=== PATIENT | female | born 1960 | race Caucasian/White ===

== ENCOUNTER → 2018-02-15 00:13 | Outpatient (CLI) | payer MEDICAID, SELFPAY ==
--- NOTE | 2018-02-15 11:15 | DI.REPORT_ITS ---
SYMPTOM/DIAGNOSIS: SCREENING MAMMO Z12.31 BILATERAL SCREENING MAMMOGRAM: Mammograms were interpreted according to the usual protocol including computer analysis with CAD system, tomosynthesis and C view imaging. Comparison is made with exams from 2011 through 2017. The breasts are composed of fatty density tissue. No suspicious masses or suspicious microcalcifications are seen. There has been no significant change. IMPRESSION: Category 1A, negative mammogram. Routine screening is recommended. [facility] ASSESSMENT OF FINDINGS: Negative. Category 1. Patient will receive a letter notifying them of these results. BI-RAD category A. The breasts are almost entirely fatty.
== END ==
PROVIDERS: PCP Nurse Practitioner Family; Visit Provider Nurse Practitioner
DX: Z12.31 Encounter for screening mammogram for malignant neoplasm of breast (principal)
CPT/HCPCS: 77063; 77067

== ENCOUNTER → 2018-02-27 01:15 | Outpatient (CLI) | payer MEDICAID, SELFPAY ==
--- NOTE | 2018-02-27 15:39 | MERGE_ITS ---
*[facility]* * Cardiology* [address] [place] [address] Date of study: 02/27/2018 Transthoracic Echocardiography M-mode, complete 2D, complete spectral Doppler, and color Doppler *STUDY CONCLUSIONS* Summary: 1. Left ventricle: The cavity size was normal. Wall thickness was normal. Systolic function was normal. The estimated ejection fraction was 55-60%. Wall motion was normal; there were no regional wall motion abnormalities. 2. Left atrium: The atrium was mildly dilated. 3. Right ventricle: The cavity size was normal. Wall thickness was normal. Systolic function was normal. 4. Tricuspid valve: There was mild-moderate regurgitation. 5. Pulmonary arteries: Pulmonary systolic pressure was increased, in the range of 35mm Hg to 40mm Hg. *PATIENT PRESENTATION* Height: 162.6cm ((64in) ) S/D Pressure: Weight: 114.3kg ((251.5lb) ) BSA: 2.33m^2 Test start time: 02:30 PM. Test stop time: 03:20 PM. 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 Pertinent images and digital data are archived for permanent storage and are available for subsequent review. No prior study was available for comparison. Study status: Routine. Transthoracic echocardiography. M-mode, complete 2D, complete spectral Doppler, and color Doppler. A Transthoracic Echocardiogram was performed. Scanning was performed from the parasternal, apical, subcostal, and suprasternal notch acoustic windows. Images were obtained using an [id number] cardiac ultrasound machine. Image quality was adequate. Study completion: The patient tolerated the procedure well. There were no complications. *CARDIAC ANATOMY* Left ventricle: The cavity size was normal. Wall thickness was normal. Systolic function was normal. The estimated ejection fraction was 55-60%. Wall motion was normal; there were no regional wall motion abnormalities. Some parameters suggest diastolic dysfunction. Aortic valve: Trileaflet; normal thickness leaflets. Mobility was not restricted. Doppler: Transvalvular velocity was within the normal range. There was no stenosis. There was no significant regurgitation. VTI ratio of LVOT to aortic valve: 0.78. Valve area (VTI): 2.3cm^2. Indexed valve area (VTI): 1cm^2/m^2. Peak velocity ratio of LVOT to aortic valve: 0.73. Valve area (Vmax): 2.2cm^2. Indexed valve area (Vmax): 0.9cm^2/m^2. Mean velocity ratio of LVOT to aortic valve: 0.62. Valve area (Vmean): 1.8cm^2. Indexed valve area (Vmean): 0.8cm^2/m^2. Mean gradient (S): 6.6mm Hg. Peak gradient (S): 11.1mm Hg. Aorta: Aortic root: The aortic root was normal in size. Ascending aorta: The ascending aorta was normal in size. Mitral valve: Structurally normal valve. Mobility was not restricted. Doppler: Transvalvular velocity was within the normal range. There was no evidence for stenosis. There was no significant regurgitation. Valve area by pressure half-time: 3.7cm^2. Indexed valve area by pressure half-time: 1.6cm^2/m^2. Peak gradient (D): 2.7mm Hg. Left atrium: The atrium was mildly dilated. Right ventricle: The cavity size was normal. Wall thickness was normal. Systolic function was normal. Pulmonic valve: Structurally normal valve. The pulmonary valve appears to be grossly normal. Doppler: Transvalvular velocity was within the normal range. There was no evidence for stenosis. There was trivial regurgitation. Peak gradient (S): 4.6mm Hg. Tricuspid valve: Structurally normal valve. Doppler: Transvalvular velocity was within the normal range. There was no evidence for stenosis. There was mild-moderate regurgitation. Pulmonary artery: Pulmonary systolic pressure was increased, in the range of 35mm Hg to 40mm Hg. Right atrium: The atrium was normal in size. Pericardium: There was no pericardial effusion. Systemic veins: Inferior vena cava: Well visualized. The vessel was patent and normal in size. The respirophasic diameter changes were in the normal range (greater than or equal to 50%). Measurements Left ventricle Value Reference LV ID, ED, PLAX 5.2 cm 3.5 - 6.0 LV ID, ES, PLAX 3.8 cm 2.1 - 4.0 LV PW thickness, ED, PLAX 1.0 cm LV end-diastolic volume, 1-p A2C 109 ml LV ejection fraction, 1-p A2C 52 % LV end-diastolic volume, 1-p A4C 95 ml LV ejection fraction, 1-p A4C 57 % LV e', lateral 0.07 m/sec LV E/e', lateral 12 LV e', medial 0.049 m/sec LV E/e', medial 17 LV e', average 0.059 m/sec LV E/e', average 14 Ventricular septum Value Reference IVS thickness, ED, PLAX 0.8 cm LVOT Value Reference LVOT ID, A-P 2.0 cm LVOT area 3 cm^2 LVOT peak velocity, S 1.21 m/sec LVOT mean velocity, S 0.77 m/sec LVOT VTI, S 29.8 cm LVOT peak gradient, S 5.9 mm Hg LVOT mean gradient, S 2.8 mm Hg Stroke volume (SV), LVOT DP 89 ml Stroke index (SV/bsa), LVOT DP 38 ml/m^2 Aortic valve Value Reference Aortic valve peak velocity, S 1.7 m/sec Aortic valve mean velocity, S 1.25 m/sec Aortic valve VTI, S 38.3 cm Aortic mean gradient, S 6.6 mm Hg Aortic peak gradient, S 11.1 mm Hg VTI ratio, LVOT/AV 0.78 Aortic valve area, VTI 2.3 cm^2 Velocity ratio, peak, LVOT/AV 0.73 Aortic valve area, peak velocity 2.2 cm^2 Velocity ratio, mean, LVOT/AV 0.62 Aortic valve area, mean velocity 1.8 cm^2 Aortic valve area/bsa, mean velocity 0.8 cm^2/m^2 Aorta Value Reference Aortic root ID, ED 3.0 cm Ascending aorta ID, A-P, S 3.1 cm RVOT Value Reference RVOT VTI, S 19.7 cm Left atrium Value Reference LA ID, A-P, ES 4.6 cm LA ID/bsa, A-P 2.0 cm/m^2 <=2.2 LA area, ES, A4C (H) 27.2 cm^2 8.8 - 23.4 LA area, ES, A2C 20 cm^2 LA volume/bsa, ES, 1-p A4C 50 ml/m^2 LA volume, ES, 2-p 78 ml LA volume/bsa, ES, 2-p 34 ml/m^2 LA/aortic root ratio 1.55 Mitral valve Value Reference Mitral E-wave peak velocity 0.83 m/sec Mitral A-wave peak velocity 1.14 m/sec Mitral deceleration time 203 ms 150 - 230 Mitral pressure half-time 59 ms Mitral peak gradient, D 2.7 mm Hg Mitral E/A ratio, peak 0.73 Mitral valve area, PHT, DP 3.7 cm^2 Pulmonary veins Value Reference Pulmonary vein peak velocity, S 0.75 m/sec Pulmonary vein peak velocity, D 0.55 m/sec Pulmonary vein velocity ratio, peak, 1.37 S/D Pulmonary vein A-wave reversal peak 0.43 m/sec velocity Pulmonary vein A-wave reversal 153 ms duration Tricuspid valve Value Reference Tricuspid regurg peak velocity 2.9 m/sec Tricuspid peak RV-RA gradient 33.3 mm Hg Right atrium Value Reference RA area, ES, A4C 17.8 cm^2 8.3 - 19.5 Pulmonic valve Value Reference Pulmonic peak gradient, S 4.6 mm Hg Legend: (L) and (H) pablo values outside specified reference range. I have personally reviewed the images and have reviewed and edited the reported findings. Electronically signed by Darrell Reyes 02/27/2018 18:18
== END ==
PROVIDERS: PCP Nurse Practitioner Family; Visit Provider Nurse Practitioner
DX: R07.9 Chest pain, unspecified (principal); R94.30 Abnormal result of cardiovascular function study, unspecified; R00.1 Bradycardia, unspecified; I07.1 Rheumatic tricuspid insufficiency
CPT/HCPCS: 93306

== ENCOUNTER 2018-05-04 19:18 | Emergency (ER) | payer MEDICAID, SELFPAY ==
[2018-05-04 19:27] VITALS: BP 189/97; PULSE 64; RESP 18; TEMP 36.7; O2SAT 95
[2018-05-04] MEDS: Lidocaine/Epinephri/Tetracaine Topical Gel 3 ML (19:30)
[2018-05-04 19:32] VITALS: BP 189/97; PULSE 68; RESP 18; TEMP 36.7; O2SAT 95
--- NOTE | 2018-05-04 19:52 | W.ED.GENAD ---
Discharge Plan Disposition Patient Disposition: HOME Condition: Stable Discharge Details Chief Complaint: Laceration Clinical Impression: Splinter Primary Care Provider: Shalonda Nicholas ED Provider: Sandy Wood Home Meds and New Rx's Prescriptions: Continue atenolol 25 MG tablet 25 mg PO DAILY RF: 0 acetaminophen [Tylenol] 325 MG tablet 325 mg PO PRN PRNRF: 0 albuterol sulfate [ProAir HFA] 8.5 GM HFA aerosol inhaler 2 puff Inhalation ONCE RF: 0 omeprazole magnesium [Prilosec] 10 MG susp,delayed release for recon 20 mg PO DAILY RF: 0 Discharge Instructions Instructions: Soft Tissue Foreign Body (ED) Additional Instructions: Please keep wound clean and dry. Monitor for signs of infection including redness, warmth, drainage, fevers/chills, increased pain. If these arise please seek care urgently once again. Tetanus updated today. Follow up with primary care as needed. Referrals: Shalonda Nicholas [Primary Care Provider] - Medical Decision Making Patient is a 57 year old LHD female, presenting today with c/c of splinter in the left thumb. She reports that while pulling a plant a piece of the wood caught in her skin. Noted a very superficial splinter, on exam approximately 1.5cm in length. Patient is very anxious. Unknown tetanus status. She has tried ot pull this herself at home but was unsuccessful. No discharge, warmth or signs of infection. She reports that she is having severe pain. Plan to anesthetize with LET and reevaluate. Will try to find tetanus status. Patient received LET which presently anesthetized the area. Wound was then cleansed with alcohol. Using 18-gauge needle and forceps, I was able to extract the splinter in its entirety. Patient tolerated this well. Small amount of bleeding after. Wound was again cleansed with alcohol and sterile saline. Wound was covered. Wound care was discussed with the patient. Discussed signs symptoms of infection when to seek care urgently once again. We are unable to find tetanus status, patient believes is over 10 years since her last we will update this tonight. All of her questions and concerns were addressed and she is in agreement with this plan HPI General Mode of arrival: ambulatory. Date/Time Provider Initiated Documentation: 05/04/18 19:40. Limitations to Documentation: no limitations. Information obtained by: patient. History of Present Illness 57 year old F presents to the emergency department with the chief complaint of splinter left thumb, described as severe, with intensity rated at 10. Quality is described as sharp, and is localized to the left and upper extremity. Patient reports no radiation. Patient started experiencing this minute(s) and it has been constant. No relieving factors improve symptom(s), Movement worsens symptoms . Patient notes no other symptoms.; denies fever/chills. Patient did receive the following treatments prior to arrival, none Related Data Home Medications Medication Instructions Recorded Confirmed acetaminophen [Tylenol] 325 mg PO PRN PRN NS 07/29/13 05/04/18 atenolol 25 mg PO DAILY tab-cap NS 07/29/13 05/04/18 albuterol sulfate [ProAir HFA] 2 puff INHALATION ONCE inhaler 07/15/16 05/04/18 omeprazole magnesium [Prilosec] 20 mg PO DAILY packet 07/15/16 05/04/18 Allergies Allergy/AdvReac Type Severity Reaction Status Date / Time bee venom protein (honey bee) Allergy Unknown Unverified 05/04/18 19:37 codeine AdvReac Severe GI UPset Unverified 05/04/18 19:37 ibuprofen AdvReac Severe GI Upset Unverified 05/04/18 19:37 Penicillins AdvReac Severe GI upset Unverified 05/04/18 19:37 Sulfa (Sulfonamide AdvReac Severe GI upset Unverified 05/04/18 19:37 Antibiotics) General Stated Complaint: Laceration INGRID: 4 Review of Systems Constitutional Reports as per HPI, Denies chills and Denies fever(s) Musculoskeletal Reports as per HPI, Denies numbness and Denies tingling Integumentary/Breasts Reports as per HPI Neurologic Denies numbness, Denies sensory deficit and Denies tingling PFSH Family History Other Diabetes Heart disease Medical History Asthma BMI 40.0-44.9, adult Dyspepsia Hyperlipidemia Hypertension Social History Smoking/Tobacco Use Status: Never Surgical History EGD - MAC (01/10/17) Ligation of fallopian tube (07/17/92) Exam Const General: cooperative, healthy appearing, comfortable, no acute distress, well developed, well groomed and anxious Nutritional Appearance: well nourished and overweight Orientation: alert and awake Resp Effort & Inspection: normal respiratory effort, able to speak in complete sentences and no respiratory distress Cardio Rate: regular rate Rhythm: regular rhythm Skin Lesions: other (Patient has a 1.5cm thin linear piece of wood is noted in the palmar side of the distal phalanx of the left thumb, very superifical. ) Rashes: no rashes Trauma: no abrasions, no lacerations and no punctures noted Neuro General: alert and awake Cognition: normal cognition Speech: speech normal Gait: normal gait Motor: muscle tone normal throughout Sensory Exam: no sensory deficits noted Extrem General: abnormal to inspection (splinter as above), full ROM, normal capillary refill and no joint enlargement Psych Appearance: grossly normal and well kempt Mental Status: mental status grossly normal Speech and Movement: speech and movement normal Mood: congruent mood Course Vital Signs Temperature 36.7 C 05/04/18 19:32 Pulse 68 05/04/18 19:32 Respiratory Rate 18 05/04/18 19:32 Blood Pressure 189/97 H 05/04/18 19:32 Pulse Oximetry 95 05/04/18 19:32 Temperature 36.7 C 05/04/18 19:32 Temperature Source Temporal Artery Scan 05/04/18 19:32 Pulse 68 05/04/18 19:32 Respiratory Rate 18 05/04/18 19:32 Respiratory Effort 05/04/18 19:32 Blood Pressure 189/97 H 05/04/18 19:32 Pulse Oximetry 95 05/04/18 19:32 Oxygen Delivery Method Room Air 05/04/18 19:32 Oxygen Flow Rate 0 05/04/18 19:32 Pain Level 10 05/04/18 19:32
--- NOTE | 2018-05-04 19:58 | ED.GENADUL_ITS ---
Discharge Plan Disposition Patient Disposition: HOME Condition: Stable Discharge Details Chief Complaint: Laceration Clinical Impression: Splinter Primary Care Provider: Shalonda Nicholas ED Provider: Sandy Wood Home Meds and New Rx's Prescriptions: Continue atenolol 25 MG tablet 25 mg PO DAILY RF: 0 acetaminophen [Tylenol] 325 MG tablet 325 mg PO PRN PRNRF: 0 albuterol sulfate [ProAir HFA] 8.5 GM HFA aerosol inhaler 2 puff Inhalation ONCE RF: 0 omeprazole magnesium [Prilosec] 10 MG susp,delayed release for recon 20 mg PO DAILY RF: 0 Discharge Instructions Instructions: Soft Tissue Foreign Body (ED) Additional Instructions: Please keep wound clean and dry. Monitor for signs of infection including redness, warmth, drainage, fevers/chills, increased pain. If these arise please seek care urgently once again. Tetanus updated today. Follow up with primary care as needed. Referrals: Shalonda Nicholas [Primary Care Provider] - Medical Decision Making Patient is a 57 year old LHD female, presenting today with c/c of splinter in the left thumb. She reports that while pulling a plant a piece of the wood caught in her skin. Noted a very superficial splinter, on exam approximately 1.5cm in length. Patient is very anxious. Unknown tetanus status. She has tried ot pull this herself at home but was unsuccessful. No discharge, warmth or signs of infection. She reports that she is having severe pain. Plan to anesthetize with LET and reevaluate. Will try to find tetanus status. Patient received LET which presently anesthetized the area. Wound was then cleansed with alcohol. Using 18-gauge needle and forceps, I was able to extract the splinter in its entirety. Patient tolerated this well. Small amount of bleeding after. Wound was again cleansed with alcohol and sterile saline. Wound was covered. Wound care was discussed with the patient. Discussed signs symptoms of infection when to seek care urgently once again. We are unable to find tetanus status, patient believes is over 10 years since her last we will update this tonight. All of her questions and concerns were addressed and she is in agreement with this plan HPI General Mode of arrival: ambulatory . Date/Time Provider Initiated Documentation: 05/04/18 19:40 . Limitations to Documentation: no limitations . Information obtained by: patient . History of Present Illness 57 year old F presents to the emergency department with the chief complaint of splinter left thumb, described as severe, with intensity rated at 10. Quality is described as sharp, and is localized to the left and upper extremity. Patient reports no radiation. Patient started experiencing this minute(s) and it has been constant. No relieving factors improve symptom(s) , Movement worsens symptoms . Patient notes no other symptoms.; denies fever /chills. Patient did receive the following treatments prior to arrival, none Related Data Home Medications Medication Instructions Recorded Confirmed acetaminophen [Tylenol] 325 mg PO PRN PRN NS 07/29/13 05/04/18 atenolol 25 mg PO DAILY tab-cap NS 07/29/13 05/04/18 albuterol sulfate [ProAir HFA] 2 puff INHALATION ONCE inhaler 07/15/16 05/04/18 omeprazole magnesium [Prilosec] 20 mg PO DAILY packet 07/15/16 05/04/18 Allergies Allergy/AdvReac Type Severity Reaction Status Date / Time bee venom protein (honey bee) Allergy Unknown Unverified 05/04/18 19:37 codeine AdvReac Severe GI UPset Unverified 05/04/18 19:37 ibuprofen AdvReac Severe GI Upset Unverified 05/04/18 19:37 Penicillins AdvReac Severe GI upset Unverified 05/04/18 19:37 Sulfa (Sulfonamide AdvReac Severe GI upset Unverified 05/04/18 19:37 Antibiotics) General Stated Complaint: Laceration INGRID: 4 Review of Systems Constitutional Reports as per HPI, Denies chills and Denies fever(s) Musculoskeletal Reports as per HPI, Denies numbness and Denies tingling Integumentary/Breasts Reports as per HPI Neurologic Denies numbness, Denies sensory deficit and Denies tingling PFSH Family History Other Diabetes Heart disease Medical History Asthma BMI 40.0-44.9, adult Dyspepsia Hyperlipidemia Hypertension Social History Smoking/Tobacco Use Status: Never Surgical History EGD - MAC (01/10/17) Ligation of fallopian tube (07/17/92) Exam Const General: cooperative, healthy appearing, comfortable, no acute distress, well developed, well groomed and anxious Nutritional Appearance: well nourished and overweight Orientation: alert and awake Resp Effort & Inspection: normal respiratory effort, able to speak in complete sentences and no respiratory distress Cardio Rate: regular rate Rhythm: regular rhythm Skin Lesions: other (Patient has a 1.5cm thin linear piece of wood is noted in the palmar side of the distal phalanx of the left thumb, very superifical. ) Rashes: no rashes Trauma: no abrasions, no lacerations and no punctures noted Neuro General: alert and awake Cognition: normal cognition Speech: speech normal Gait: normal gait Motor: muscle tone normal throughout Sensory Exam: no sensory deficits noted Extrem General: abnormal to inspection (splinter as above), full ROM, normal capillary refill and no joint enlargement Psych Appearance: grossly normal and well kempt Mental Status: mental status grossly normal Speech and Movement: speech and movement normal Mood: congruent mood Course Vital Signs Temperature 36.7 C 05/04/18 19:32 Pulse 68 05/04/18 19:32 Respiratory Rate 18 05/04/18 19:32 Blood Pressure 189/97 H 05/04/18 19:32 Pulse Oximetry 95 05/04/18 19:32 Temperature 36.7 C 05/04/18 19:32 Temperature Source Temporal Artery Scan 05/04/18 19:32 Pulse 68 05/04/18 19:32 Respiratory Rate 18 05/04/18 19:32 Respiratory Effort 05/04/18 19:32 Blood Pressure 189/97 H 05/04/18 19:32 Pulse Oximetry 95 05/04/18 19:32 Oxygen Delivery Method Room Air 05/04/18 19:32 Oxygen Flow Rate 0 05/04/18 19:32 Pain Level 10 05/04/18 19:32
== END 2018-05-04 20:51 | disposition home or self-care (01) ==
LOC: ER 20:54
PROVIDERS: Emergency Provider Physician Assistant; PCP Nurse Practitioner Family
DX: S60.352A Superficial foreign body of left thumb, initial encounter (principal); W45.8XXA Other foreign body or object entering through skin, initial encounter; I10 Essential (primary) hypertension
CPT/HCPCS: 10120; 90471

== ENCOUNTER 2018-07-27 12:26 | Outpatient (REF) | payer MEDICAID, SELFPAY ==
--- NOTE | 2018-07-27 10:00 | PAPFT_PTH ---
PATIENT: Amanda Contreras LOC: [facility] U#:[id number] AGE/SX: 57/F ROOM: RE07/27/[address]: Deidre Ribeiro : 1960 BED: DIS: 07/27/2018 SPEC #: [id number] RECD: 07/27/18 13:11 STATUS: MICHAEL REQ #: [id number] GABY: 07/27/18 10:[address]: Deidre Ribeiro DEPT: [facility] Cytology RECD BY: Evelin Chambers ENTERED: 07/27/18 13:12 SP TYPE: PAPFT OTHR DR: Shalonda Nicholas Tissues: 1 - CX/ENDOCX FOR PAP SMEARS Procedures: PAP THIN PREP/UVM Screening HPV DNA PROBE Comments: [id number]
[2018-07-27 14:38] LABS: Glucose 101 mg/dL (70-100)
[2018-07-30 12:20] LABS: Hepatitis C Ab w Rflx HCV PCR Negative (NEGAT)
== END 2018-07-27 12:46 ==
LOC: NCHCN 12:26
PROVIDERS: PCP Nurse Practitioner Family; Visit Provider Nurse Practitioner
DX: Z12.4 Encounter for screening for malignant neoplasm of cervix (principal); Z11.51 Encounter for screening for human papillomavirus (HPV); Z01.419 Encounter for gynecological examination (general) (routine) without abnormal findings; R73.9 Hyperglycemia, unspecified; Z11.59 Encounter for screening for other viral diseases
CPT/HCPCS: 82947; 86803; 88142; 87624

== ENCOUNTER 2018-11-12 18:12 | Outpatient (REF) | payer MEDICAID, SELFPAY ==
[2018-11-12 21:13] LABS: Abs Immature Grans 0.02 k/cumm (0.0-0.09); Absolute Basophil Count 0.04 k/cumm (0.0-0.2); Absolute Eosinophil Count 0.24 k/cumm (0.0-0.7); Absolute Lymphocyte Count 2.41 k/cumm (1.2-3.4); Absolute Neutrophil Count 5.39 k/cumm (1.2-6.7); Basophils % 0.5; Eosinophils % 2.8; HCT 43.8 % (36.0-46.0); Immature Grans % 0.2; Lymphocytes % 27.7; Mean Corpuscular Hemoglobin 28.3 pg (27.0-33.0); Mean Corpuscular Volume 88.5 fL (80-95); Mean Platelet Volume 12.3 fL (8.0-11.0); Monocytes % 6.9; Neutrophils % 61.9; Platelet Count 162 x1000/uL (130-400); RBC 4.95 m/cumm (4.00-5.20); RBC Distribution Width 13.6 % (11.7-14.6)
[2018-11-12 21:24] LABS: ALT 21 U/L (12-78); AST 17 U/L (15-37); Albumin 4.1 g/dL (3.4-5.0); Alkaline Phosphatase 92 U/L (46-116); Amylase 29 U/L (25-115); Anion Gap 8.4 mmol/L (3-11); BUN 19 mg/dL (7-18); Bilirubin, Total 0.4 mg/dL (0.2-1.0); CO2 29.6 mmol/L (21.0-32.0); CREATININE 0.94 mg/dL (0.55-1.02); Chloride 100 mmol/L (98-107); Glucose 99 mg/dL (70-100); Lipase 109 U/L (73-393); Potassium 3.9 mmol/L (3.5-5.1); Sodium 138 mmol/L (136-145); Total Protein 7.7 g/dL (6.4-8.2)
[2018-11-12 21:43] LABS: Calcium 9.3 mg/dL (8.5-10.1)
== END 2018-11-12 18:32 ==
LOC: NCHCN 18:12
PROVIDERS: PCP Nurse Practitioner Family; Visit Provider Nurse Practitioner Family
DX: R10.11 Right upper quadrant pain (principal); I10 Essential (primary) hypertension; F43.20 Adjustment disorder, unspecified; F41.8 Other specified anxiety disorders
CPT/HCPCS: 80053; 83690; 82150; 85025

== ENCOUNTER 2018-11-15 00:42 | Outpatient (CLI) | payer MEDICAID, SELFPAY ==
--- NOTE | 2018-11-15 08:00 | DI.US_ITS ---
SYMPTOM/DIAGNOSIS: RUQ ABD PAIN, R10.11 ABDOMEN ULTRASOUND: The examination was somewhat technically limited due to the patient's body habitus. The visualized liver parenchyma is normal in appearance but significant portions of the liver are non visualized. There is cholelithiasis without gallbladder wall thickening or pericholecystic fluid collection. Pancreas is not ideally visualized and may show increased echogenicity. Spleen is unremarkable in appearance. Kidneys appear normal with no evidence of hydronephrosis or nephrolithiasis. Question increased echogenicity of hepatic parenchyma, there may be hepatic steatosis. CONCLUSION: Cholelithiasis, question hepatic steatosis.
== END 2018-11-15 01:02 ==
PROVIDERS: PCP Nurse Practitioner Family; Visit Provider Nurse Practitioner Family
DX: R10.11 Right upper quadrant pain (principal); K80.20 Calculus of gallbladder without cholecystitis without obstruction; K76.0 Fatty (change of) liver, not elsewhere classified
CPT/HCPCS: 76700

== ENCOUNTER 2019-03-04 16:56 | Outpatient (REF) | payer MEDICAID, SELFPAY ==
[2019-03-04 22:01] LABS: ALT 20 U/L (12-78); AST 21 U/L (15-37); Albumin 3.5 g/dL (3.4-5.0); Alkaline Phosphatase 83 U/L (46-116); Anion Gap 8.7 mmol/L (3-11); BUN 16 mg/dL (7-18); Bilirubin, Total 0.3 mg/dL (0.2-1.0); CO2 29.3 mmol/L (21.0-32.0); CREATININE 0.74 mg/dL (0.55-1.02); Calcium 8.4 mg/dL (8.5-10.1); Calculated LDL 174 mg/dL; Chloride 102 mmol/L (98-107); Cholesterol 269 mg/dL (50-200); Glucose 114 mg/dL (70-100); HDL Cholesterol 49 mg/dL (40-60); Magnesium 1.8 mg/dL (1.8-2.4); Sodium 140 mmol/L (136-145); TSH (W/Ref FT4) 1.46 uIU/mL (0.36-3.74); Triglyceride 233 mg/dL (30-150); Vitamin B12 177 pg/mL (193-986)
== END 2019-03-04 17:16 ==
LOC: NCHCN 16:56
PROVIDERS: PCP Nurse Practitioner Family; Visit Provider Nurse Practitioner Family
DX: R07.9 Chest pain, unspecified (principal); I27.20 Pulmonary hypertension, unspecified; K30 Functional dyspepsia; I10 Essential (primary) hypertension; E78.5 Hyperlipidemia, unspecified; K76.0 Fatty (change of) liver, not elsewhere classified; K80.20 Calculus of gallbladder without cholecystitis without obstruction; F43.20 Adjustment disorder, unspecified
CPT/HCPCS: 80053; 80061; 83721; 82607; 83735; 84443

== ENCOUNTER 2019-04-03 14:33 | Outpatient (CLI) | payer MEDICAID, SELFPAY ==
--- NOTE | 2019-04-03 07:29 | MERGE_ITS ---
*[facility]* *[facility]* [address] [place] [address] Date of study: 04/03/2019 Transthoracic Echocardiography M-mode, complete 2D, complete spectral Doppler, and color Doppler *STUDY CONCLUSIONS* Impressions: Frequent ectopy was noted on this study, making this study technically difficult for the assessment of cardiac function. Summary: 1. Left ventricle: The cavity size was normal. Wall thickness was normal. Systolic function was at the lower limits of normal. The estimated ejection fraction was 50-55%. Wall motion was normal; there were no regional wall motion abnormalities. 2. Left atrium: The atrium was mildly dilated. 3. Right ventricle: The cavity size was normal. Wall thickness was normal. Systolic function was normal. 4. Pulmonary arteries: Pulmonary systolic pressure was within the normal range, in the range of 25mm Hg to 30mm Hg. *PATIENT PRESENTATION* Height: 160cm (63in ) S/D Pressure: 127 / 74 Weight: 113.4kg (249.5lb ) BSA: 2.31m^2 Test start time: 07:40 AM. Test stop time: 08:40 AM. PERFORMING Unknown CONSULTING Shalonda Nicholas Aprn ORDERING Shalonda Nicholas Aprn REFERRING Shalonda Nicholas Aprn PERFORMING [facility] FACULTY RESEARCH ASSISTANT RT Kena Snow)(OVIDIO)TRISTEN *PROCEDURE DATA* Procedure information: The patient was identified by two identifiers. This study was interpreted by [facility]. Pertinent images and digital data are archived for permanent storage and are available for subsequent review. Comparison was made to the study of 02/21/2018. Study status: Routine. Transthoracic echocardiography. M-mode, complete 2D, complete spectral Doppler, and color Doppler. A Transthoracic Echocardiogram was performed. Scanning was performed from the parasternal, apical, subcostal, and suprasternal notch acoustic windows. Images were obtained using an [id number] cardiac ultrasound machine. Image quality was adequate. Study completion: The patient tolerated the procedure well. There were no complications. History: PMH: Pulmonary HTN i27.20, tricuspid regurgitation i07.1 *CARDIAC ANATOMY* Left ventricle: The cavity size was normal. Wall thickness was normal. Systolic function was at the lower limits of normal. The estimated ejection fraction was 50-55%. Wall motion was normal; there were no regional wall motion abnormalities. Findings consistent with diastolic dysfunction. Aortic valve: Trileaflet; normal thickness leaflets. Mobility was not restricted. Doppler: Transvalvular velocity was within the normal range. There was no stenosis. There was trivial regurgitation. VTI ratio of LVOT to aortic valve: 0.72. Valve area (VTI): 2.2cm^2. Indexed valve area (VTI): 0.9cm^2/m^2. Peak velocity ratio of LVOT to aortic valve: 0.68. Valve area (Vmax): 2.1cm^2. Indexed valve area (Vmax): 0.9cm^2/m^2. Mean velocity ratio of LVOT to aortic valve: 0.68. Valve area (Vmean): 2.1cm^2. Indexed valve area (Vmean): 0.9cm^2/m^2. Mean gradient (S): 4.6mm Hg. Peak gradient (S): 8mm Hg. Aorta: Aortic root: The aortic root was normal in size. Ascending aorta: The ascending aorta was normal in size. Mitral valve: Structurally normal valve. Mobility was not restricted. Doppler: Transvalvular velocity was within the normal range. There was no evidence for stenosis. There was trivial regurgitation. Valve area by pressure half-time: 3.6cm^2. Indexed valve area by pressure half-time: 1.5cm^2/m^2. Left atrium: The atrium was mildly dilated. Right ventricle: The cavity size was normal. Wall thickness was normal. Systolic function was normal. Pulmonic valve: Structurally normal valve. Doppler: Transvalvular velocity was within the normal range. There was no evidence for stenosis. There was no significant regurgitation. Tricuspid valve: Structurally normal valve. Doppler: Transvalvular velocity was within the normal range. There was no evidence for stenosis. There was trivial regurgitation. Pulmonary artery: Pulmonary systolic pressure was within the normal range, in the range of 25mm Hg to 30mm Hg. Right atrium: The atrium was normal in size. Pericardium: There was no pericardial effusion. Systemic veins: Inferior vena cava: Well visualized. The vessel was patent and normal in size. The respirophasic diameter changes were in the normal range (greater than or equal to 50%). Measurements Left ventricle Value 02/27/2018 Reference LV ID, ED, PLAX 4.7 cm 5.2 3.5 - 6.0 LV ID, ES, PLAX 3.7 cm 3.8 2.1 - 4.0 LV PW thickness, ED, PLAX 1.1 cm 1.0 LV end-diastolic volume, 83 ml 109 1-p A2C LV ejection fraction, 1-p 41 % 52 A2C LV end-diastolic volume, 119 ml 95 1-p A4C LV ejection fraction, 1-p 40 % 57 A4C LV e', lateral 0.03 m/sec 0.07 LV E/e', lateral 15 12 LV e', medial 0.042 m/sec 0.049 LV E/e', medial 11 17 LV e', average 0.036 m/sec 0.059 LV E/e', average 12 14 Ventricular septum Value 02/27/2018 Reference IVS thickness, ED, PLAX 1.0 cm 0.8 LVOT Value 02/27/2018 Reference LVOT ID, A-P 2.0 cm 2.0 LVOT area 3 cm^2 3 LVOT peak velocity, S 0.96 m/sec 1.21 LVOT mean velocity, S 0.69 m/sec 0.77 LVOT VTI, S 20.0 cm 29.8 LVOT peak gradient, S 3.7 mm Hg 5.9 LVOT mean gradient, S 2.2 mm Hg 2.8 Stroke volume (SV), LVOT 61 ml 89 DP Stroke index (SV/bsa), 26 ml/m^2 38 LVOT DP Aortic valve Value 02/27/2018 Reference Aortic valve peak 1.4 m/sec 1.7 velocity, S Aortic valve mean 1 m/sec 1.2 velocity, S Aortic valve VTI, S 28.0 cm 38.3 Aortic mean gradient, S 4.6 mm Hg 6.6 Aortic peak gradient, S 8 mm Hg 11.1 VTI ratio, LVOT/AV 0.72 0.78 Aortic valve area, VTI 2.2 cm^2 2.3 Velocity ratio, peak, 0.68 0.73 LVOT/AV Aortic valve area, peak 2.1 cm^2 2.2 velocity Velocity ratio, mean, 0.68 0.62 LVOT/AV Aortic valve area, mean 2.1 cm^2 1.8 velocity Aortic valve area/bsa, 0.9 cm^2/m^2 0.8 mean velocity Aorta Value 02/27/2018 Reference Aortic root ID, ED 3.0 cm 3.0 Ascending aorta ID, A-P, S 3.1 cm 3.1 Left atrium Value 02/27/2018 Reference LA ID, A-P, ES 4.3 cm 4.6 LA ID/bsa, A-P 1.9 cm/m^2 2.0 <=2.2 LA volume/bsa, ES, 1-p A4C 35 ml/m^2 50 LA volume, ES, 2-p 64 ml 78 LA volume/bsa, ES, 2-p 28 ml/m^2 34 LA/aortic root ratio 1.46 1.55 Mitral valve Value 02/27/2018 Reference Mitral E-wave peak 0.44 m/sec 0.83 velocity Mitral A-wave peak 1.01 m/sec 1.14 velocity Mitral deceleration time 214 ms 203 150 - 230 Mitral pressure half-time 62 ms 59 Mitral E/A ratio, peak 0.43 0.73 Mitral valve area, PHT, DP 3.6 cm^2 3.7 Pulmonary veins Value 02/27/2018 Reference Pulmonary vein peak 0.64 m/sec 0.75 velocity, S Pulmonary vein peak 0.3 m/sec 0.55 velocity, D Pulmonary vein velocity 2.14 1.37 ratio, peak, S/D Pulmonary vein A-wave 0.45 m/sec 0.43 reversal peak velocity Pulmonary vein A-wave 141 ms 153 reversal duration Tricuspid valve Value 02/27/2018 Reference Tricuspid regurg peak 2.4 m/sec 2.9 velocity Tricuspid peak RV-RA 23.9 mm Hg 33.3 gradient Right atrium Value 02/27/2018 Reference RA area, ES, A4C 17.1 cm^2 17.8 8.3 - 19.5 Legend: (L) and (H) pablo values outside specified reference range. I have personally reviewed the images and have reviewed and edited the reported findings. Electronically signed by Darrell Reyes 04/03/2019 09:57
== END 2019-04-03 14:53 ==
PROVIDERS: PCP Nurse Practitioner Family; Visit Provider Nurse Practitioner Family
DX: I27.20 Pulmonary hypertension, unspecified (principal); I07.1 Rheumatic tricuspid insufficiency; I10 Essential (primary) hypertension
CPT/HCPCS: 93306

== ENCOUNTER 2019-04-10 13:43 | Outpatient (CLI) | payer MEDICAID, SELFPAY | END 2019-04-10 14:03 | PROVIDERS: PCP Nurse Practitioner Family; Visit Provider Nurse Practitioner Family | DX: R07.89 Other chest pain (principal); I49.3 Ventricular premature depolarization | CPT/HCPCS: 93225 ==

== ENCOUNTER 2019-04-15 09:01 | Outpatient (CLI) | payer MEDICAID, SELFPAY ==
--- NOTE | 2019-04-15 11:23 | HOLTER_ITS ---
DATE OF DICTATION: April 15, 2019 48-HOUR STUDY Baseline rhythm sinus. Rare single PAC. No SVT or atrial fibrillation. Very frequent single PVC, 29,722 total. 13.6% of total beat. 887 couplet, 32 triplet. No VT. Heart rates as low as 55 bpm, sinus bradycardia. No symptoms.
== END 2019-04-15 09:21 ==
PROVIDERS: PCP Nurse Practitioner Family; Visit Provider Nurse Practitioner Family
DX: I49.3 Ventricular premature depolarization (principal); R07.89 Other chest pain
CPT/HCPCS: 93226

== ENCOUNTER 2019-05-02 12:21 | Outpatient (REF) | payer MEDICAID, SELFPAY ==
[2019-05-02 23:00] LABS: Hemoglobin A1C 6.6 % (4.5-6.2)
== END 2019-05-02 12:41 ==
LOC: NCHCN 12:21
PROVIDERS: PCP Nurse Practitioner Family; Visit Provider Nurse Practitioner Family
DX: I10 Essential (primary) hypertension (principal); E53.8 Deficiency of other specified B group vitamins; R07.9 Chest pain, unspecified; K76.0 Fatty (change of) liver, not elsewhere classified; F41.8 Other specified anxiety disorders; I27.20 Pulmonary hypertension, unspecified; K30 Functional dyspepsia; E66.9 Obesity, unspecified
CPT/HCPCS: 82607; 83036

== ENCOUNTER 2019-05-06 01:08 | Outpatient (CLI) | payer MEDICAID, SELFPAY ==
--- NOTE | 2019-05-06 07:43 | DI.CT_ITS ---
EXAM: CT ABDOMEN PELVIS W CLINICAL HISTORY: chronic pain, RLQ abd pain, enlarged liver, R10.31, R16.0. TECHNIQUE: The examination was carried out with an intravenous administration of 125 cc of Omnipaque 350. COMPARISON: No exams were available for comparison FINDINGS: The lung bases are suboptimally demonstrated due to patient motion, no definite abnormality is identi fied. The liver is slightly enlarged. The gallbladder is normal. There is no evidence of cholelithia sis. There is no evidence of biliary dilatation. The pancreas and spleen are intact. The kidneys ar e unremarkable save for a small cyst involving the lower pole of the left kidney. There is no eviden ce of bowel obstruction. The appendix is normal. No localized bowel wall abnormality is apparent. T he bladder is intact. The reproductive organs as visualized appear intact. There is no evidence of f ree fluid or free air in the intraperitoneal space. There is no evidence of an aortic aneurysm. Note is made of a small fat containing umbilical hernia. Degenerative changes involving the lower dorsal spine are identified and there is a narrowed vacuum disc at L5-S1. No acute bony abnormality is def ined. IMPRESSION: Hepatomegaly is demonstrated. A small left renal cyst is seen and there is a small fat containing umb ilical hernia. Degenerative changes involving the spine are identified as described above.
[2019-05-06] MEDS: Breeza Beverage 473 ML BTL PO ×2 (07:54→07:55)
[2019-05-06] MEDS: Omnipaque 350 MG/ML 50 ML BTL PO (07:55)
[2019-05-06] MEDS: Omnipaque 350 MG/ML 100 ML BTL IV (09:34)
[2019-05-06] MEDS: Omnipaque 350 MG/ML 50 ML BTL IV (09:35)
[2019-05-06] MEDS: Normal Saline Flush 10 ML SYR IVP (09:36)
== END 2019-05-06 01:28 ==
PROVIDERS: PCP Nurse Practitioner Family; Visit Provider Surgery
DX: R10.31 Right lower quadrant pain (principal); R16.0 Hepatomegaly, not elsewhere classified; N28.1 Cyst of kidney, acquired; K42.9 Umbilical hernia without obstruction or gangrene
CPT/HCPCS: 74177; J3490; Q9967

== ENCOUNTER 2019-05-09 10:03 | Day surgery (SDC) | payer MEDICAID, SELFPAY ==
[2019-05-09 10:33] VITALS: BP 155/73; PULSE 63; RESP 15; TEMP 36.4; O2SAT 97
[2019-05-09] MEDS: Lactated Ringers 1,000 ML 120 ML IV (11:18)
[2019-05-09] MEDS: Sodium Citrate 30 ML CUP (11:25)
--- NOTE | 2019-05-09 11:54 | W.PM.DSUDISC ---
Discharge Plan Disposition Patient Disposition: HOME Condition: Good Discharge Details Reason For Visit: colon scope Attending Provider: Marimar Boudreaux Primary Care Provider: Shalonda Nicholas Home Meds and New Rx's Prescriptions: New dicyclomine 10 mg capsule 10 mg PO TID PRN (Reason: colon spasm ) Qty: 30 RF: 3 Continued Pulmicort Flexhaler 90 mcg/actuation aerosol powdr breath activated 1 inh IH BID RF: 0 sucralfate [Carafate] 1 gram tablet 1 gm PO QACHS RF: 0 pantoprazole 20 mg tablet,delayed release (DR/EC) 20 mg PO DAILY RF: 0 vitamin B complex [B Complex-Vitamin B12] Tablet 1 tab PO DAILY RF: 0 atenolol 25 MG tablet 25 mg PO DAILY RF: 0 acetaminophen [Tylenol] 325 MG tablet 325 mg PO PRN PRNRF: 0 albuterol sulfate [ProAir HFA] 8.5 GM HFA aerosol inhaler 2 puff Inhalation PRN PRNRF: 0 hydrochlorothiazide 25 mg Tablet 25 mg PO DAILY RF: 0 Discontinued polyethylene glycol 3350 17 gram powder in packet 255 g PO DAILY Qty: 15 RF: 0 bisacodyl [Dulcolax (bisacodyl)] 5 mg tablet,delayed release (DR/EC) 5 mg PO ONCE Qty: 4 RF: 0 Discharge Instructions Additional Instructions: Findings: normal colon repeat in 10 yrs time Follow up: C. scope and CT scan were normal will try some dycyclomine for colon spsams. F/u w/ PCP in 6-8 wks to see if this helps Please call if you develop: fevers >101.5 Nausea or Vomiting Abdominal pain that is not transient DAY SURGERY UNIT POST COLONOSCOPY INSTRUCTIONS 1. Because there will be medication in your system for the next 24 hours, you may feel a little sleepy. Your coordination will be affected. Therefore: a. Do not drive or operate dangerous equipment for 24 hours. b. Do not drink alcohol beverages for 24 hours (not even beer). c. Plan to go home and rest for the day. 2. Generally there are no restrictions on your activity after a day or so has gone by, but you may feel a bit fatigued for a few days. 3 After you arrive home you may have a light meal and return to a normal diet as you can tolerate it without feeling sick to your stomach. 4. After surgery, you may feel pain or discomfort. This should be only transient, but if it persists please contact your doctor. 5. If there are any questions regarding the findings of your procedure, please feel free to contact your doctor. 6. If you are unable to contact your doctor with a problem, contact the hospital at [phone]. 7. Continue all your regular medications unless directed otherwise. I understand the above instructions and have no questions. Signature of Patient or Responsible Adult Escort Date/Time Name of Responsible Adult Escort Signature of Nurse Date/Time Activity:: see above Diet:: see above Discharge Orders Discharge Orders: Discharge Order (Routine); Ordered 05/09/19 Ordered By: Marimar Boudreaux DS: Diagnosis Discharge Diagnosis (1) RLQ abdominal pain: Status: Acute (2) IBS (irritable bowel syndrome): Status: Chronic
[2019-05-09 12:00] VITALS: BP 140/60; PULSE 65; RESP 16; TEMP 36.4; O2SAT 97
--- NOTE | 2019-05-14 19:13 | W.COLOREPORT ---
Date of service: 05/09/19 Time of Service: 19:14 Colonoscopy Report Date of procedure: 05/09/19 Pre-op diagnosis general: RLQ abdom pain Post-op diagnosis procedure note: same Procedure: CE Surgeon: Marimar Boudreaux Anesthesia proc note operative: GETA Estimated blood loss (mL): 0 Pathology: other Complications: None Disposition: same day Retraction Time: 12 mins Procedure Description: After informed consent was obtained the patient was taken to the procedure room and placed in a left decubitous position. Monitors were applied and a time out was done. The patients name, date of , procedure, allergies to medications and metal in their body was reviewed. The patient was then sedated. Once sedated and comfortable a rectal exam was done. External exam was normal. Internal exam revealed a normal sphincter tone and no palpable masses. The scope was then introduced and retrofelexed. No internal hemorrhoids were identified. The scope was then advanced to the cecum without difficulty. The TI and appendiceal orifice were identified. The prep was good. The scope was then slowly retracted over 15 minutes back into the rectum. no polyps/AVM's or diverticula apparent. Tissue was nl - pink and healthy. The scope was removed and the patient was woken up and taken back to Same day surgery in stable condition. The patient tolerated the procedure well and there were no immediate complications. Her CE and CT were nl. At this time- it would appear that her bowl is a functional bowel problem. We will try her on some Bentyl and see if this helps. I will have her F/u w/ PCP in 4-6wks to see how she is feeling. Follow up: The patient should follow up in 10 years unless they develop changes in bowel habits or other new gastrointestinal complaints.
== END 2019-05-09 12:54 | disposition home or self-care (01) ==
PROVIDERS: PCP Nurse Practitioner Family; Visit Provider Surgery
PROC: 0DJD8ZZ Inspection of Lower Intestinal Tract, Via Natural or Artificial Opening Endoscopic (ICD-10-PCS; CPT 45378; principal; 2019-05-09 11:00)
DX: R10.31 Right lower quadrant pain (principal); I10 Essential (primary) hypertension
CPT/HCPCS: 45378

== ENCOUNTER 2019-05-28 11:59 | Outpatient (REF) | payer MEDICAID, SELFPAY ==
[2019-05-28 23:38] LABS: Vitamin B12 542 pg/mL (193-986)
== END 2019-05-28 12:19 ==
LOC: NCHCO 11:59
PROVIDERS: PCP Nurse Practitioner Family; Visit Provider Nurse Practitioner Family
DX: E11.9 Type 2 diabetes mellitus without complications (principal); E53.8 Deficiency of other specified B group vitamins; I10 Essential (primary) hypertension
CPT/HCPCS: 82607

== ENCOUNTER 2019-09-30 00:32 | Outpatient (CLI) | payer MEDICAID, SELFPAY ==
--- NOTE | 2019-09-30 | DI.MAMMO_ITS ---
EXAM: MG MAMMO SCREENING CLINICAL HISTORY: SCREENING Z12.31 TECHNIQUE: Bilateral full field digital CC and MLO mammographic images were obtained with 3D tomosyn thesis and utilizing computer aided detection (CAD). COMPARISON: Available for comparison. FINDINGS: Masses/Architectural Distortion: None seen. Microcalcifications: No suspicious pleomorphic-type are seen. Skin Thickening/Nipple Retraction: None. IMPRESSION: 1. No significant interval change with no specific features of malignancy noted. 2. Unless there is more urgent need, screening mammography is recommended, as per [place] [employer] guidelines. BI-RADS Cat 1 - Negative Breast Density - Category A - Almost entirely fatty A negative radiographic report should not delay biopsy if a dominant or clinically suspicious mass is present. Up to ten percent of cancers are not identified on mammography. A negative report may reinforce clinical impression. Adenosis and dense breasts may obscure an underlying neoplasm. False positive reports average 6 to 10%. Patient will receive a letter notifying them of these results.
== END 2019-09-30 00:52 ==
PROVIDERS: PCP Nurse Practitioner Family; Visit Provider Nurse Practitioner Family
DX: Z12.31 Encounter for screening mammogram for malignant neoplasm of breast (principal)
CPT/HCPCS: 77063; 77067

== ENCOUNTER 2020-01-20 14:28 | Outpatient (REF) | payer MEDICAID, SELFPAY ==
[2020-01-20 21:16] LABS: Abs Immature Grans 0.02 k/cumm (0.0-0.09); Absolute Basophil Count 0.03 k/cumm (0.0-0.2); Absolute Eosinophil Count 0.28 k/cumm (0.0-0.7); Absolute Lymphocyte Count 2.12 k/cumm (1.2-3.4); Absolute Monocyte Count 0.52 k/cumm (0.11-0.7); Absolute Neutrophil Count 4.66 k/cumm (1.2-6.7); Basophils % 0.4; Eosinophils % 3.7; HCT 42.9 % (36.0-46.0); Immature Grans % 0.3 %; Lymphocytes % 27.8; Mean Corp. HGB Concentration 32.6 g/dL (32.0-36.0); Mean Corpuscular Hemoglobin 28.8 pg (27.0-33.0); Mean Corpuscular Volume 88.3 fL (80-95); Mean Platelet Volume 13.4 fL (8.0-11.0); Monocytes % 6.8; Platelet Count 192 x1000/uL (130-400); RBC 4.86 m/cumm (4.00-5.20); RBC Distribution Width 13.8 % (11.7-14.6); White Blood Cell Count 7.63 k/cumm (4.4-10.8)
[2020-01-20 21:45] LABS: ALT 35 U/L (14-59); AST 23 U/L (15-37); Albumin 3.9 g/dL (3.4-5.0); Alkaline Phosphatase 79 U/L (46-116); Anion Gap 6.5 mmol/L (3-11); BUN 20 mg/dL (7-18); Bilirubin, Total 0.5 mg/dL (0.2-1.0); CO2 32.5 mmol/L (21.0-32.0); CREATININE 0.97 mg/dL (0.55-1.02); Calcium 9.6 mg/dL (8.5-10.1); Calculated LDL 176 mg/dL (<100); Chloride 100 mmol/L (98-107); Cholesterol 264 mg/dL (<200); Estimated GFR 58.38 (mL/min/1.73m2); Glucose 129 mg/dL (74-106); HDL Cholesterol 54 mg/dL (40-60); Magnesium 1.8 mg/dL (1.8-2.4); Potassium 3.6 mmol/L (3.5-5.1); Sodium 139 mmol/L (136-145); Total Protein 7.2 g/dL (6.4-8.2); Triglyceride 171 mg/dL (<150); Vitamin B12 540 pg/mL (193-986)
== END 2020-01-20 14:48 ==
LOC: NCHCN 14:28
PROVIDERS: PCP Nurse Practitioner Family; Visit Provider Nurse Practitioner Family
DX: E11.9 Type 2 diabetes mellitus without complications (principal); E53.8 Deficiency of other specified B group vitamins; R07.9 Chest pain, unspecified; I10 Essential (primary) hypertension; K76.0 Fatty (change of) liver, not elsewhere classified; F41.8 Other specified anxiety disorders; I27.20 Pulmonary hypertension, unspecified
CPT/HCPCS: 80053; 80061; 82607; 83735; 85025

== ENCOUNTER 2020-01-24 02:40 | Outpatient (CLI) | payer MEDICAID, SELFPAY ==
--- NOTE | 2020-01-24 | DI.US_ITS ---
EXAM: US ABDOMEN CLINICAL HISTORY: LIVER STEATOSIS, K76.0, DM TYPE 2, E11.9 TECHNIQUE: Ultrasound abdomen performed using standard protocol. COMPARISON: CT CT ABDOMEN PELVIS W from 05/06/[address] ABDOMEN PELVIS W from 05/06/2019 FINDINGS: Exam is limited by the patient's body habitus LIVER: Liver is enlarged and shows increased echogenicity consistent with fatty infiltration.. No f ocal liver lesions are seen.. GALLBLADDER: 2 centimeter mobile stone. No evidence of wall thickening. No pericholecystic fluid mary ntified. CALI'S SIGN: Negative. BILIARY SYSTEM: No intrahepatic or extrahepatic biliary ductal dilation. KIDNEYS: Kidneys are symmetric in size. No evidence of renal calculi. No evidence of hydronephrosis. No renal mass or cyst identified. PANCREAS: Normal where visualized. SPLEEN: Not enlarged. ABDOMINAL AORTA AND IVC: Visualized portions normal caliber. ASCITES: None seen. IMPRESSION: Cholelithiasis. Hepatic steatosis.. DATA REPOSITORY:
== END 2020-01-24 03:00 ==
PROVIDERS: PCP Nurse Practitioner Family; Visit Provider Nurse Practitioner Family
DX: K76.0 Fatty (change of) liver, not elsewhere classified (principal); E11.9 Type 2 diabetes mellitus without complications; R16.0 Hepatomegaly, not elsewhere classified; K80.20 Calculus of gallbladder without cholecystitis without obstruction
CPT/HCPCS: 76700

== ENCOUNTER 2020-03-09 22:26 | Outpatient (REF) | payer MEDICAID, SELFPAY ==
[2020-03-09 21:44] LABS: ALT 26 U/L (14-59); AST 14 U/L (15-37); Albumin 3.7 g/dL (3.4-5.0); Alkaline Phosphatase 96 U/L (46-116); Anion Gap 6.3 mmol/L (3-11); BUN 21 mg/dL (7-18); Bilirubin, Total 0.4 mg/dL (0.2-1.0); CO2 32.7 mmol/L (21.0-32.0); CREATININE 0.84 mg/dL (0.55-1.02); Calcium 9.3 mg/dL (8.5-10.1); Calculated LDL 114 mg/dL (<100); Chloride 101 mmol/L (98-107); Cholesterol 199 mg/dL (<200); Glucose 160 mg/dL (74-106); HDL Cholesterol 50 mg/dL (40-60); Potassium 3.5 mmol/L (3.5-5.1); Sodium 140 mmol/L (136-145); Total Protein 6.9 g/dL (6.4-8.2); Triglyceride 175 mg/dL (<150)
== END 2020-03-09 22:46 ==
LOC: NCHCN 22:26
PROVIDERS: PCP Nurse Practitioner Family; Visit Provider Nurse Practitioner Family
DX: K76.0 Fatty (change of) liver, not elsewhere classified (principal)
CPT/HCPCS: 80053; 80061

== ENCOUNTER 2020-10-23 03:44 | Outpatient (CLI) | payer MEDICAID, SELFPAY ==
--- NOTE | 2020-10-23 09:27 | DI.US_ITS ---
APPROVED REPORT EXAM: Comprehensive 2D, Doppler, and color-flow Echocardiogram Patient Location: Out-Patient Food Sanitarian: Nelida Castillo RDCS (AE) Indications: Pulmonary HTN, Pre operative exam Other Information Study Quality: Adequate Conclusion Left Ventricle : The left ventricle is normal size. The left ventricular systolic function is normal. The left ventricular ejection fraction is within the normal range. There is normal left ventricular wall thickness. There is normal LV segmental wall motion. The left ventricular diastolic function is abnormal. LVEF is 60-65%. Right Ventricle : The right ventricle is normal size. The right ventricular systolic function is norm al. The RVSP is 31.9mmHg. Atria : The left atrium size is normal. The right atrium size is normal. Valves: There are no hemodynamically significant valvular lesions. Great Vessels : The aortic root is normal in size. The ascending aorta is normal in size. Aortic arch is normal in caliber. IVC is normal in size and collapses >50% with inspiration. Please see remainder of study for further details. Wall motion Left Ventricle The left ventricle is normal size. The left ventricular systolic function is normal. The left ventric ular ejection fraction is within the normal range. There is normal left ventricular wall thickness. T here is normal LV segmental wall motion. The left ventricular diastolic function is abnormal. There i s no ventricular septal defect visualized. LVEF is 60-65%. Right Ventricle The right ventricle is normal size. The right ventricular systolic function is normal. The RVSP is 31 .9mmHg. Atria The left atrium size is normal. The right atrium size is normal. The interatrial septum is intact wit h no evidence for an atrial septal defect. Aortic Valve The aortic valve is normal in structure. Aortic valve is trileaflet. There is no aortic valvular sten osis. No aortic regurgitation is present. Mitral Valve The mitral valve is normal in structure. No evidence of mitral valve stenosis. Trace mitral regurgita tion. Tricuspid Valve The tricuspid valve is normal in structure. There is no tricuspid valve stenosis. Trace tricuspid reg urgitation. Pulmonic Valve The pulmonary valve is normal in structure. There is no pulmonic valvular stenosis. Trace pulmonic re gurgitation. Great Vessels The aortic root is normal in size. The ascending aorta is normal in size. Aortic arch is normal in ca liber. IVC is normal in size and collapses >50% with inspiration. Pericardium There is no pericardial effusion. 2D Dimensions IVSD d PLAX 0.97 cm F: 0.6-1.0 LV Vol A2C d MOD 132.4 mL LVPW d PLAX 0.95 cm F: 0.6 - 1.0 LV Vol A4C d MOD 115.3 mL LVID d PLAX 4.53 cm F: 3.8 - 5.2 LA vol/ BSA A2C s A-L 27.2 mL/m2 LVDs 2.95 cm F: 2.2 - 3.5 LA vol/ BSA A4C s A-L 20.7 mL/m2 Ao Root d 2.59 cm F: 2.7 - 3.3 LA Vol/ BSA Biplane s A-L 24.2 mL/m2 RA Area A4C 13.10 cm2 LA Area A4C s MOD 16.61 cm2 RA Vol/ BSA A4C s A-L 13.8 mL/m2 LA Area A2C s MOD 18.65 cm2 Ao Asc Diam d 3.03 cm F: 2.3 - 3.1 LV EF A4C MOD 64.3 % LV EF Teichholz 63.5 % LV EF A2C MOD 61.7 % LVEF (Her's) 62.71 % F: 54 - 74 LV EF Biplane MOD 62.7 % LV Volume 93.05 mL F: 46 - 106 SV 79.04 mL LV Volume Index 44.30 mL/m2 F: 29 - 61 SV Index 37.67 mL/m2 LV Vol Biplane MOD 126.0 mL FS 34.30 % M-Mode TAPSE 1.77 cm (M/F) >1.7 LV Diastology MV E' medial 0.040 (>0.07 m/s) E/A Ratio 0.6 LV E/e MED 15.05 (<14) MV E Vmax 0.61 (0.4-1.3 m/s) MV E' lateral 0.066 (>0.1 m/s) MV A Vmax 1.00 (0.4-1.3 m/s) LV E/e LAT 9.05 (<14) MV E/A Ratio 0.59 MV E/E' medial 15.09 MV E/E' lateral 9.10 Aortic Valve LVOT Area 2.88 cm2 AoV Area Vmax 2.05 cm2 LVOT Vmax 1.15 m/s AoV Area/ BSA (Vmax) 0.98 cm2/m2 LVOT Mean Franck. 0.68 m/s STEPHAN Mean Rfanck. 1.76 cm2 LVOT Peak Grad 5.3 mmHg STEPHAN Mean Franck. Index 0.84 cm2/m2 LVOT Mean Grad 2.3 mmHg LVOT VTI 0.241 m LVOT Diam s 1.90 cm AoV Vmax 1.61 m/s Velocity Ratio 0.71 AoV Mean Franck. 1.12 m/s AoV Peak Grad 10.4 mmHg LVOT SV 69.37 mL AoV Mean Grad 5.5 mmHg AoV VTI 0.315 m AoV Area VTI 2.20 cm2 AoV Area/ BSA (VTI) 1.05 cm/m2 Mitral Valve MV DT 257 (160-240 msec) MV PHT 75 msec MV Area PHT 2.95 cm2 MV VTI 0.325 m MV VTI Annulus 0.332 m MV Area VTI 2.19 (4.0-6.0 cm2) Pulmonary Valve PV Vmax 1.36 (0.5-1.5 m/s) RVOT Peak Gr. 2.55 mmHg PV Peak Grad 7.4 mmHg RVOT Mean Gr. 1.20 mmHg PV Mean Grad 4.0 mmHg RVOT VTI 0.143 m PV VTI 0.258 m RVOT Vmax 0.80 m/s Tricuspid Valve TR Peak Grad 28.9 mmHg TR Vmax 2.69 m/s RA Pressure 3.00 mmHg RVSP (TR) 31.9 mmHg
== END 2020-10-23 04:04 ==
PROVIDERS: PCP Nurse Practitioner Family; Visit Provider Surgery
DX: I27.20 Pulmonary hypertension, unspecified (principal); Z01.810 Encounter for preprocedural cardiovascular examination
CPT/HCPCS: 93306

== ENCOUNTER 2020-11-23 03:08 | Outpatient (CLI) | payer MEDICAID, SELFPAY ==
[2020-11-23 10:23] LABS: Source Nasal/Nares
[2020-11-23 12:28] LABS: COVID-19 PCR Negative (Negative)
== END 2020-11-23 03:09 | disposition home or self-care (01) ==
LOC: LBO 03:09
PROVIDERS: PCP Nurse Practitioner Family; Visit Provider Surgery
DX: Z20.822 Contact with and (suspected) exposure to COVID-19 (principal); Z01.818 Encounter for other preprocedural examination
CPT/HCPCS: 87635

== ENCOUNTER 2020-11-25 10:30 | Day surgery (SDC) | payer MEDICAID, SELFPAY ==
[2020-11-25] VITALS (12 sets, daily range): BP systolic 120–147; BP diastolic 57–82; PULSE 68–85; RESP 11–20; TEMP 36.1–37.1; O2SAT 93–99; BMI 43.4
--- NOTE | 2020-11-25 06:48 | ROE_ITS ---
Date of service: 11/25/20 Time of Service: 13:12 Operative Note Operative Note DATE OF PROCEDURE: 11/25/20 PRE-OP DIAGNOSIS: Billiary Cholic POST-OP DIAGNOSIS: same PROCEDURE: Laparoscopic Cholecystectomy SURGEON: Pau Patel AIRBRUSH ARTIST PHOTOGRAPHY: Portia Moore ANESTHESIA TYPE: Local By Surgeon and General LMA/ETT Refer to Anesthesia Record ESTIMATED BLOOD LOSS: 50 PATHOLOGY: other (Gallbladder and contents) COMPLICATIONS: None Patient was transported to: PACU Patient's condition: stable Implants: None Indications: Mrs. Contreras is a 60-year-old female who comes in today for follow up of right upper quadrant and epigastric pain. She tells me that she has increased pain with eating as well as with movement. On examination she does have pain in the right upper quadrant and epigastric area. There is no rebound or guarding. Ultrasound shows gallstones, no gallbladder wall thickening or pericholecystic fluid. I suspect she does have an element of biliary colic. Her ECHO looked OK. We discussed laparoscopic cholecystectomy in detail using a pamphlet with pictures. I also reviewed with her the reasons that I would convert to open which include a difficult anatomy, excessive bleeding or severe inflammation and adhesions. All of her questions have been answered to her satisfaction and she wishes to proceed. We also reviewed Covid testing and quarantine requirements after testing. Risks, benefits, complications were reviewed with the patient in the office. Co mplications include but are not limited to bleeding, infection, injury to stomach, small bowel and large bowel, injury to the pancreas, injury to the common bile duct necessitating drainage and referral to tertiary center for repair, bile leak, adverse reactions to the medications, complications of intubation including a sore throat or injury to the uvula, HI, stroke and even . Questions were entertained and answered to her satisfaction and she wished to proceed. No guarantees were given or implied. COVID-19 testing explained to the patient. Reason for test reviewed. Quarantine per state requirements reviewed with patient. Patient understands and agrees to testing. Proceed with laparoscopic cholecystectomy under general anesthetic. Findings: Some inflammation around the GAllbladder. Procedure Description: After informed consent was obtained the patient was brought to the operating room, placed in a supine position and monitors were applied. SCDs were applied to her lower extremities and she was placed under general anesthesia and intubated without difficulty. Her abdomen was then prepped and draped in a sterile fashion using ChloraPrep. At this point a timeout was done and the patient's name, date of , procedure type, allergies to medications, metal in her body, antibiotic and DVT prophylaxis, and fire risk was assessed. At this point Exparel mixed 50/50 with 0.25% Bupivocaine was injected just above the umbilicus into the dermis and subcutaneous tissue. A 5 mm incision was made with an 11 blade. The skin next to the incision was grasped with penetrating towel clamps and while pulling up on the skin a 5 mm port was placed under direct visualization. The abdomen was insuflated and then 3 more ports were placed. A 12 mm port was placed in the subxiphoid area and two 5 mm ports were placed in the right upper quadrant. The liver was inspected and l ooked normal. The patient's bed was then turned to the left and her head was brought up. The gallbladder was grasped at the body and pushed towards the right shoulder, this allowed me to visualize the neck of the gallbladder. The neck was grasped and pulled towards the right flank and down allowing me to visualize the lymph node. Using a [place] dissector with cautery the lymph node was gently dissected away from the tissues and the fatty tissue was also dissected away. The cystic duct was identified it was normal in size. The duct was dissected 360 degrees using the [place] dissector in order for me to visualize its entrance into the gallbladder. Liver was noted behind it. There were no other structures right behind. Critical view was achieved. 3 clips were placed one proximal and 2 distal and the cystic duct was cut. The cystic artery was then identified and dissected 360 degrees. It was located just medial to the cystic duct. It was visualized going into the gallbladder. Once dissected 3 more clips were placed one proximal and 2 distal and the artery was cut. Using the hook dissector the gallbladder was then dissected away from the liver bed and placed into an Endo Catch bag and pulled through the 12 mm port site. The 12 mm port was placed back into the abdomen under direct visualization. The liver bed was inspected no bleeding was noted. The abdomen was then irrigated with a liter of normal saline until the effluent was clear. Once all the fluid was suctioned out, the 12 mm and the 2 right upper quadrant ports were removed under direct visualization and no bleeding was noted from the fascia. The abdomen was deflated completely and lastly the umbilical port was removed. The skin was cleaned and the incisions were closed with 4-0 Vicryl. The skin was dried and skin affix was applied over the closed incisions. Needle, instrument and sponge counts were correct at the end of the case. At this point the patient was woken up, extubated and taken back to recovery in stable condition. There were no immediate complications.
--- NOTE | 2020-11-25 06:50 | PDOC.DSDIS_ITS ---
Discharge Plan Disposition Patient Disposition: HOME Condition: Good Discharge Details Reason For Visit: billiary cholic Attending Provider: Pau Patel Primary Care Provider: Shalonda Nicholas Home Meds and New Rx's Prescriptions: New oxycodone 5 mg tablet 5 mg PO Q6H PRN (Reason: pain) Qty: 14 RF: 0 Continued Pulmicort Flexhaler 90 mcg/actuation aerosol powdr breath activated 1 inh IH BID RF: 0 pantoprazole 20 mg tablet,delayed release (DR/EC) 20 mg PO DAILY RF: 0 atorvastatin 20 mg tablet 20 mg PO DAILY RF: 0 metformin 500 mg tablet extended release 24 hr 500 mg PO DAILY RF: 0 loratadine [Claritin] 10 mg tablet 10 mg PO DAILY RF: 0 vitamin B complex [B Complex-Vitamin B12] Tablet 1 tab PO DAILY RF: 0 acetaminophen [Tylenol] 325 MG tablet 325 mg PO PRN PRNRF: 0 albuterol sulfate [ProAir HFA] 8.5 GM HFA aerosol inhaler 2 puff Inhalation PRN PRNRF: 0 hydrochlorothiazide 25 mg Tablet 25 mg PO DAILY RF: 0 Discharge Instructions Instructions: Laparoscopic Cholecystectomy (DC) Additional Instructions: Activity at Home after surgery: 1. Make sure you walk outside at least 4 times per day 2. You should be able to climb a flight of stairs 3. No driving while in pain or taking pain medications 4. No strenuous activity or heavy lifting for 2 weeks (laparoscopic surgery) or 4 weeks (open surgery) Diet, Nutrition, & wound healin. Avoid alcohol until after you are recovered from your surgery 2. Make sure to eat plenty of lean protein (meat, fish, eggs, cottage cheese, beans) 3. Eat a variety of fruits and vegetables. Eat plenty of high fiber foods to avoid constipation. 4. Drink plenty of liquids to stay hydrated and avoid constipation Pain Medications: 1. Tylenol 650mg every 6 hours as needed and Ibuprofen 600 mg every 6 hours as needed. You may alternate between the 2 medications every 3 hours 2. If a narcotic has been prescribed take as directed only for breakthrough pain For Constipation: 1. Take Milk of Magnesia or MiraLax as needed for constipation Other: 1. You may shower daily. Do not scrub the incisions 2. Do not soak the incisions for 1 week 3. You may alternate ice and heat as needed for pain and swelling Wound Care: 1. Keep the incisions clean and dry Please call our office if you develop: 1. Fevers >101.5 2. Nausea or Vomiting 3. Worsening pain 4. Redness and thick discharge from the wounds If after hours please call the Hospital at and ask to speak to the on-call surgeon Referrals: Pau Patel MD [ [facility] STAFF PHYSICIAN] - 12/11/20 10:00 am Activity:: as above Shower/Bathe:: 24 hours Diet:: As Tolerated Discharge Orders Discharge Orders: Discharge Order (Routine); Ordered 11/25/20 Ordered By: Pau Patel
--- NOTE | 2020-11-25 10:13 | W.ANESPRE ---
General Info Date of Service Date Performed: 11/25/20 Height: 5 ft 4 in Weight: 114.816 kg Body Mass Index (BMI): 43.4 Surgical Procedure: Operation Date: 11/25/20 11:55 Proposed Procedures Side Surgeon p Cholecystectomy Laparoscopic Pau Patel MD Meds Allergies and Home Medications Allergies Allergy/AdvReac Type Severity Reaction Status Date / Time bee venom protein (honey bee) Allergy Unknown Skin Rash Unverified 11/25/20 10:54 codeine AdvReac Severe GI UPset Unverified 11/25/20 10:54 ibuprofen AdvReac Severe GI Upset Unverified 11/25/20 10:54 Penicillins AdvReac Severe GI upset Unverified 11/25/20 10:54 Sulfa (Sulfonamide AdvReac Severe GI upset Unverified 11/25/20 10:54 Antibiotics) Home Medication Medication Instructions Recorded acetaminophen [Tylenol] 325 mg PO PRN PRN NS 07/29/13 albuterol sulfate [ProAir HFA] 2 puff INHALATION PRN PRN inhaler 07/15/16 budesonide 90 mcg/actuation breath 1 inh IH BID 11/23/18 activated powder inhaler pantoprazole 20 mg tablet,delayed 20 mg PO DAILY 11/23/18 release vitamin B complex 1 tab PO DAILY 04/26/19 hydrochlorothiazide 25 mg PO DAILY 05/09/19 atorvastatin 20 mg tablet 20 mg PO DAILY 09/25/20 loratadine 10 mg tablet 10 mg PO DAILY 09/25/20 metformin 500 mg tablet,extended 500 mg PO DAILY 09/25/20 release 24 hr Current Visit Medications: Current Medications Generic Name Dose Route Start Last Admin Trade Name Freq PRN Reason Stop Dose Admin Acetaminophen 1,000 mg 11/25/20 06:00 Acetaminophen 500 Mg Tab PO 11/25/20 16:00 PREOP SAMMIE Ringer's Solution 1,000 mls @ 80 mls/hr 11/25/20 06:00 IV 12/24/20 23:59 INFUSION SAMMIE Ampicillin Sodium/Sulbactam 100 mls @ 200 mls/hr 11/25/20 06:00 Sodium 3 gm/ Sodium Chloride IVPB 11/25/20 16:00 PREOP SAMMIE Ondansetron HCl 4 mg/ Sodium 52 mls @ 200 mls/hr 11/25/20 06:51 Chloride IVPB Q6H PRN PRN IV Miscellaneous Supplies 1 each 11/25/20 06:00 Iv Access IV 12/24/20 23:59 DIRECTED SAMMIE Oxycodone HCl 5 mg 11/25/20 06:51 Oxycodone 5 Mg Tab PO Q3H PRN PRN Pain Sodium Chloride 0 ml 11/25/20 06:00 Normal Saline Flush 10 Ml Syr IV 12/24/20 23:59 PRN PRN Sodium Chloride 0 ml 11/25/20 06:00 Normal Saline 10 Ml Vial IJ 12/24/20 23:59 DIRECTED PRN Sterile Water 0 ml 11/25/20 06:00 Water,Injection,Sterile 10 Ml Vial IJ 12/24/20 23:59 DIRECTED PRN PFSH Active Problems Active Problems: Problem Status Onset Code Abdominal pain R10.9 Obesity E66.9 Dysphagia R13.10 Frequent PVCs I49.3 Pulmonary hypertension I27.20 Tricuspid regurgitation I07.1 Anxiety F41.9 Depression F32.9 B12 deficiency E53.8 Diabetes E11.9 IBS (irritable bowel syndrome) K58.9 RLQ abdominal pain R10.31 BMI 40.0-44.9, adult 07/22/16 Z68.41 Dyspepsia 07/22/16 R10.13 Essential hypertension 07/22/16 I10 Hyperlipidemia 07/22/16 E78.5 Mild persistent asthma without complication 07/22/16 J45.30 S/P colonoscopy Z98.890 Medical History Medical History Abnormal nuclear stress test Anxiety Anxiety and depression Asthma B12 deficiency BMI 40.0-44.9, adult Depression Diabetes Dyspepsia Dysphagia Frequent PVCs Grief reaction Hyperlipidemia Hypertension IBS (irritable bowel syndrome) Obesity Pulmonary hypertension RLQ abdominal pain Tricuspid regurgitation Surgical History Surgical History EGD - MAC (01/10/17) Ligation of fallopian tube (07/17/92) S/P colonoscopy per patient normal Tobacco Smoking/Tobacco Use Status: Never Alcohol Alcohol Intake: never Substance Use Substance use: Never Substance use type: does not use Vital Signs and Lab Results Vital Signs Most Recent Vital Signs in EMR: Most Recent Vital Signs Temp Pulse Resp BP Pulse Ox 36.1 C L 85 16 126/71 99 11/25/20 10:01 11/25/20 10:01 11/25/20 10:01 11/25/20 10:01 11/25/20 10:01 Lab Results Blood Type / Crossmatch: No Data to Display Complete Blood Count: White Blood Count 7.63 k/cumm (4.4-10.8) 01/20/20 11:36 01/20/20 Red Blood Count 4.86 m/cumm (4.00-5.20) 01/20/20 11:36 01/20/20 Hemoglobin 14.0 g/dL (12.0-15.5) 01/20/20 11:36 01/20/20 Hematocrit 42.9 % (36.0-46.0) 01/20/20 11:36 01/20/20 Platelet Count 192 x1000/uL (130-400) 01/20/20 11:36 01/20/20 Complete Metabolic Panel: Sodium Level 140 mmol/L (136-145) 03/09/20 09:25 03/09/20 Potassium Level 3.5 mmol/L (3.5-5.1) 03/09/20 09:03/09/20 Chloride Level 101 mmol/L (98-107) 03/09/20 09:03/09/20 Carbon Dioxide Level 32.7 mmol/L (21.0-32.0) H 03/09/20 09:25 03/09/20 Blood Urea Nitrogen 21 mg/dL (7-18) H 03/09/20 09:25 03/09/20 Creatinine 0.84 mg/dL (0.55-1.02) 03/09/20 09:03/09/20 Magnesium Level 1.8 mg/dL (1.8-2.4) 01/20/20 11:36 01/20/20 Calcium Level 9.3 mg/dL (8.5-10.1) 03/09/20 09:25 03/09/20 Albumin 3.7 g/dL (3.4-5.0) 03/09/20 09:25 03/09/20 Glucose Level 160 mg/dL (74-106) H 03/09/20 09:25 03/09/20 Hemoglobin A1c 6.6 % (4.5-6.2) H 05/02/19 11:39 05/02/19 C-Reactive Protein 0.40 mg/dL (0.0-0.3) H 11/06/14 15:15 11/06/14 Liver Function Panel: Alanine Aminotransferase (ALT/SGPT) 26 U/L (14-59) 03/09/20 09:25 03/09/20 Aspartate Amino Transf (AST/SGOT) 14 U/L (15-37) L 03/09/20 09:25 03/09/20 Coagulation Panel: D-Dimer 386 ng/mlFEU (<500) 01/16/18 15:41 01/16/18 Cardiac Panel: Troponin I < 0.02 ng/mL (0.00-0.06) 01/16/18 19:22 01/16/18 CI-Kbf-G-Type Natriuretic Peptide 212 pg/mL (-299) 02/07/18 12:00 02/07/18 Creatine Kinase 128 U/L (26-192) 11/06/14 15:15 11/06/14 Arterial Blood Gas: No Data to Display Venous Blood Gas: No Data to Display Pancreas Panel: Amylase Level 29 U/L (25-115) 11/12/18 17:45 11/12/18 Lipase 109 U/L (73-393) 11/12/18 17:45 11/12/18 Thyroid Panel: Thyroid Stimulating Hormone (TSH) 1.46 uIU/mL (0.36-3.74) 03/04/19 15:31 03/04/19 Infectious Disease: Coronavirus (COVID-19)(PCR) Negative (Negative) 11/23/20 08:53 11/23/20 Coronavirus 2019 Source Nasal/nares 11/23/20 08:53 11/23/20 Hepatitis C Antibody Negative (NEGAT) 07/27/18 10:40 07/27/18 Blood Cultures: No Data to Display Toxicology Panel: No Data to Display Imaging and Studies Imaging and Studies Stress Test Summary:: 01/2018: Impressions: - Normal perfusion by [id number] Sestamibi Imaging. - Abnormal contraction consistent with cardiomyopathy. Summary: 1. Myocardial perfusion imaging: No myocardial perfusion defects noted. 2. The calculated left ventricular ejection fraction after stress: 44%. Diffuse left ventricular regional motion abnormalities. Echocardiogram Summary:: 10/23/2020: Conclusion Left Ventricle : The left ventricle is normal size. The left ventricular systolic function is normal. The left ventricular ejection fraction is within the normal range. There is normal left ventricular wall thickness. There is normal LV segmental wall motion. The left ventricular diastolic function is abnormal. LVEF is 60-65%. Right Ventricle : The right ventricle is normal size. The right ventricular systolic function is normal. The RVSP is 31.9mmHg. Atria : The left atrium size is normal. The right atrium size is normal. Valves: There are no hemodynamically significant valvular lesions. Great Vessels : The aortic root is normal in size. The ascending aorta is normal in size. Aortic arch is normal in caliber. IVC is normal in size and collapses >50% with inspiration. Please see remainder of study for further details. Pulmonary Function Test Summary:: 01/2018: Spirometry shows no evidence of obstructive airways disease. There is some, but not significant, bronchodilator response. Lung volumes show no evidence of restriction. Diffusion capacity normal. Airways resistance elevated. Anesthesia Assessment and Plan Anesthesia History Personal History: No History of Anesthesia Complications Family History: No Family History of Anesthesia Complications Exercise Tolerance Exercise Tolerance: Metabolic Equivalents>4 Cardiac & Pulmonary Exam Cardiac Exam: Normal S1/S2 Heart Sounds Pulmonary Exam: Clear Bilateral Breath Sounds Airway Exam Known Difficult Airway: No Mallampati Class: 3 Mouth Opening: Narrow (< 3cm) Thyromental Distance: Less than 3 cm Neck Range of Motion: Full ROM Neck Circumference: Thick Teeth Condition: Edentulous ASA Classification ASA Score: ASA 3 Emergency Case?: No NPO Status NPO Status: NPO Clears >2 hours, Solids >8 hours Anesthesia Plan Anesthesia Technique: General Anesthesia Airway Planned: Endotracheal Tube Monitors Used: Standard Monitors
[2020-11-25] MEDS: Acetaminophen 500 MG TAB 1000 MG PO (11:09)
[2020-11-25] MEDS: Lactated Ringers 1,000 ML 80 ML IV (11:20)
[2020-11-25] MEDS: AMPICILLIN/SULBACTAM 3 GM in Normal Saline 100 ML IVPB (11:35)
--- NOTE | 2020-11-25 12:25 | GB_PTH ---
PATIENT: Amanda Contreras LOC: [facility] U#:[id number] AGE/SX: 60/F ROOM: RE11/25/[address]: Pau Patel MD : [id number] BED: DIS: 11/25/2020 SPEC #: [id number] RECD: 11/25/20 16:05 STATUS: MICHAEL REKole #: [id number] GABY: 11/25/20 12:[address]: Pau Patel DEPT: Surgical Specimen RECD BY: Evelin Chambers ENTERED: 11/25/20 16:05 SP TYPE: GB OTHR DR: Shalonda Nicholas Tissues: 1 - GALLBLADDER Procedures: GROSS AND MICRO LEVEL 3 Comments: [id number]
[2020-11-25] MEDS: Bupivacaine 0.25% Pres-Free 10 ML VIAL (12:32)
[2020-11-25] MEDS: Bupivacaine LIPOSOME/PF 133 MG/10 ML VIAL IJ (12:32)
[2020-11-25] MEDS: oxyCODONE 5 MG TAB PO (13:58)
--- NOTE | 2020-11-25 14:18 | W.ANESPOSTOP ---
Postoperative Evaluation Date, Time and Location Date Performed: 11/25/20 Time Performed: 14:19 Patient Location: Day Surgery Unit Vital Signs Most Recent Imported Vital Signs: Most Recent Vital Signs Temp Pulse Resp BP Pulse Ox 36.3 C L 78 18 137/71 96 11/25/20 13:53 11/25/20 13:53 11/25/20 13:53 11/25/20 13:53 11/25/20 13:53 Pain Score Most Recent Pain Score: Most Recent Pain Score Pain Level 6 11/25/20 13:53 Assessment Mental Status: Awake (Alert & Oriented to Patient Baseline) Airway and Respiratory Function: Patent airway with normal (patient baseline) respiratory exam Cardiovascular Function: Hemodynamically Stable Hydration Status: Adequately Hydrated Nausea & Vomiting: No Nausea or Vomiting Pain: Pain is Moderate or Severe Postoperative Pain Management: Pain being addressed with medication (Patient arrived in 04/25 pain, now reports 6-01/23 and received medication from the DSU RN. Patient appears calm and relaxed. RN to let us know if worsens. ) Peripheral Nerve Block: Patient did not receive a nerve block
== END 2020-11-25 16:04 | disposition home or self-care (01) ==
PROVIDERS: PCP Nurse Practitioner Family; Visit Provider Surgery
PROC: 0FT44ZZ Resection of Gallbladder, Percutaneous Endoscopic Approach (ICD-10-PCS; CPT 47562; principal; 2020-11-25 11:45)
DX: K80.10 Calculus of gallbladder with chronic cholecystitis without obstruction (principal); E66.9 Obesity, unspecified; Z68.41 Body mass index [BMI] 40.0-44.9, adult; I27.20 Pulmonary hypertension, unspecified; J45.909 Unspecified asthma, uncomplicated
CPT/HCPCS: 47562; 88304; J0295; J1100; J2001; J2370; J2405

== ENCOUNTER 2020-12-04 19:50 | Emergency (ER) | payer MEDICAID, SELFPAY ==
[2020-12-04 19:57] VITALS: BP 157/92; PULSE 98; RESP 20; TEMP 36.9; O2SAT 95
--- NOTE | 2020-12-04 20:15 | ED.GENADUL_ITS ---
Discharge Plan Disposition Patient Disposition: HOME Condition: Stable Discharge Details Clinical Impression: Post-op bleeding Primary Care Provider: Shalonda Nicholas ED Provider: Mavis Salguero Home Meds and New Rx's Prescriptions: No Action Pulmicort Flexhaler 90 mcg/actuation aerosol powdr breath activated 1 inh IH BID RF: 0 pantoprazole 20 mg tablet,delayed release (DR/EC) 20 mg PO DAILY RF: 0 atorvastatin 20 mg tablet 20 mg PO DAILY RF: 0 metformin 500 mg tablet extended release 24 hr 500 mg PO DAILY RF: 0 loratadine [Claritin] 10 mg tablet 10 mg PO DAILY RF: 0 vitamin B complex [B Complex-Vitamin B12] Tablet 1 tab PO DAILY RF: 0 acetaminophen [Tylenol] 325 MG tablet 325 mg PO PRN PRNRF: 0 albuterol sulfate [ProAir HFA] 8.5 GM HFA aerosol inhaler 2 puff Inhalation PRN PRNRF: 0 hydrochlorothiazide 25 mg Tablet 25 mg PO DAILY RF: 0 Discharge Instructions Instructions: Laparoscopic Cholecystectomy (DC) Additional Instructions: Sometimes there can be a small hematoma or seroma collection of blood and fluid underneath the incision site with healing. This may continue to drain for the next few days. Red flags to watch for at home are severe bright red bleeding with clots, increasing dizziness, lightheadedness or increased abdominal pain, fever or vomiting. For the next few days please guard your abdominal wall when sitting up or moving around. No heavy lifting. Decreased activity for the next few days to allow for complete healing. Follow up with primary care provider in 3-5 days. Return to ED sooner if any worsening or concerns. Increase oral fluids. Referrals: Shalonda Nicholas [Primary Care Provider] - Pau Patel MD [ [facility]] - Discharge Data Discharge Date/Time-TO BE ENTERED AT DEPARTURE: 12/04/20 22:02 Medical Decision Making 60-year-old female presents to the ER with chief complaint of bleeding from surgical incision site. Patient had a cholecystectomy 1 week ago on Monday. She did notice bleeding from the incision site earlier this week saw surgeon in office yesterday. She reports that prior to arrival she took the Band-Aid off and noted increased bleeding with blood clots. She did bring in a washcloth that is moderately soaked with some blood. Upon initial exam she does have some ecchymosis noted around the incision, no tenderness no swelling no signs of infection. There is a small venous ooze noted from the incision site. It is dark or bloody in nature. She reports that she is eating and drinking well she is urinating and having normal bowel movement. Denies any hematochezia or dark tarry stools. At this time H&H is within normal limit hemoglobin is 13.1 hematocrit, 39.9, white blood cell count is 10.94. 2111: Spoke with Dr. Patel regarding patient described patient case in detail she advises to just reassure patient there is probably a seroma or blood clot underneath the incision site that is continuing to drain. At this time there is no evidence of active venous bleeding no specific site that is actively bleeding from. No evidence of infection or any underlying abnormality, no evidence of significant amount of bleeding. Patient is hemodynamically stable. Discuss strict return instructions with patient and family who verbalized und erstanding. Discussed home care. Instructed to follow-up with general surgery and or PCP as previously scheduled. Return to the ED for any worsening. This text was generated using Librettoation system, please disregard any oddities of phrase or misspellings. HPI General Mode of arrival: ambulatory . Date/Time Provider Initiated Documentation: 12/04/20 20:04 . Limitations to Documentation: no limitations . Information obtained by: patient and family . HPI Narrative: 60-year-old female presents to the ER with chief complaint of bleeding from surgical incision site. Patient had a cholecystectomy 1 week ago on Monday. She did notice bleeding from the incision site earlier this week saw surgeon in office yesterday. She reports that prior to arrival she took the Band-Aid off and noted increased bleeding with blood clots. She did bring in a washcloth that is moderately soaked with some blood. Upon initial exam she does have some ecchymosis noted around the incision, no tenderness no swelling no signs of infection. There is a small venous ooze noted from the incision site. It is dark or bloody in nature. She reports that she is eating and drinking well she is urinating and having normal bowel movement. Denies any hematochezia or dark tarry stools. Related Data Home Medications Medication Instructions Recorded Confirmed acetaminophen [Tylenol] 325 mg PO PRN PRN NS 07/29/13 12/04/20 albuterol sulfate [ProAir HFA] 2 puff INHALATION PRN PRN inhaler 07/15/16 12/04/20 budesonide 90 mcg/actuation breath 1 inh IH BID 11/23/18 12/04/20 activated powder inhaler pantoprazole 20 mg tablet,delayed 20 mg PO DAILY 11/23/18 12/04/20 release vitamin B complex 1 tab PO DAILY 04/26/19 12/04/20 hydrochlorothiazide 25 mg PO DAILY 05/09/19 12/04/20 atorvastatin 20 mg tablet 20 mg PO DAILY 09/25/20 12/04/20 loratadine 10 mg tablet 10 mg PO DAILY 09/25/20 12/04/20 metformin 500 mg tablet,extended 500 mg PO DAILY 09/25/20 12/04/20 release 24 hr Allergies Allergy/AdvReac Type Severity Reaction Status Date / Time bee venom protein (honey bee) Allergy Unknown Skin Rash Unverified 12/04/20 20:01 codeine AdvReac Severe GI UPset Unverified 12/04/20 20:01 ibuprofen AdvReac Severe GI Upset Unverified 12/04/20 20:01 Penicillins AdvReac Severe GI upset Unverified 12/04/20 20:01 Sulfa (Sulfonamide AdvReac Severe GI upset Unverified 12/04/20 20:01 Antibiotics) General Stated Complaint: Laceration INGRID: 3 Review of Systems Narrative: Constitutional: Negative for weight loss, alert and oriented, well groomed, obese body habitus, appears comfortable. HEENT: Denies trauma, headaches, blurry vision, nasal discharge, sore throat, trouble swallowing. Chest: Denies chest pain, palpitations, irregular rhythm, hypertension. Respiratory: Denies Shortness of breath, cough, hemoptysis. GI: Denies abdominal pain, nausea, vomiting, diarrhea, constipation. Recent laparoscopic cholecystectomy. Reports bleeding from incision site. : Denies dysuria, hematuria, flank pain, rectal bleeding. Neuro: Denies dizziness, blurry vision, weakness, syncope, headache or facial numbness. Hematologic: Denies easy bruising, intolerance to heat or cold, hair loss. [facility] Medical History Abnormal nuclear stress test Anxiety Anxiety and depression Asthma B12 deficiency BMI 40.0-44.9, adult Depression Diabetes Dyspepsia Dysphagia Frequent PVCs Grief reaction Hyperlipidemia Hypertension IBS (irritable bowel syndrome) Obesity Pulmonary hypertension RLQ abdominal pain Tricuspid regurgitation Surgical History EGD - MAC (01/10/17) Ligation of fallopian tube (07/17/92) S/P colonoscopy per patient normal Family History Other Diabetes Heart disease Social History Smoking/Tobacco Use Status: Never Smoking risk assessment performed?: Yes Alcohol Intake: never Drug use: Never Substance use type: does not use Current gender identity: female Do you feel safe at home: Yes Do you feel safe in your relationship?: Yes Exam Const General: cooperative, healthy appearing, comfortable, no acute distress, well developed and well groomed Nutritional Appearance: obese Orientation: alert, awake and oriented x3 Resp Effort & Inspection: normal respiratory effort and able to speak in complete sentences Auscultation: clear to auscultation bilaterally Cardio Rhythm: regular rhythm Heart Sounds: S1 normal and S2 normal GI Inspection: non-distended, incision (Laparoscopic cholecystectomy incision) and obesity Palpation: soft, no guarding and nontender Abdomen image: 1. As noted in diagram below, minimal amount dark oozing blood. 2. Ecchymosis Skin Full body images: 1. Laparoscopic incision site, small dark blood oozing noted from incision. No tenderness no surrounding warmth or erythema no purulent drainage. 2. Ecchymosis Course Vital Signs Vital signs: Vital Signs Temperature 36.9 C 12/04/20 19:57 Pulse 98 H 12/04/20 19:57 Respiratory Rate 20 12/04/20 19:57 Blood Pressure 157/92 H 12/04/20 19:57 Pulse Oximetry 95 12/04/20 19:57 Temperature 36.9 C 12/04/20 19:57 Temperature Source Temporal Artery Scan 12/04/20 19:57 Pulse 98 H 12/04/20 19:57 Respiratory Rate 20 12/04/20 19:57 Respiratory Effort Non-Labored 12/04/20 20:02 Blood Pressure 157/92 H 05/21/21 19:57 Pulse Oximetry 95 12/04/20 19:57 Pain Level 0 12/04/20 20:02
[2020-12-04 21:03] LABS: Abs Immature Grans 0.03 10^3/uL (0.0-0.06); Absolute Eosinophil Count 0.22 10^3/uL (0.0-0.7); Absolute Monocyte Count 0.79 10^3/uL (0.1-0.8); Absolute Neutrophil Count 7.14 10^3/uL (1.2-6.7); Basophils % 0.5; HCT 39.9 % (36.0-46.0); HGB 13.1 g/dL (11.2-15.7); Immature Grans % 0.3; Lymphocytes % 24.7; MCH 28.4 pg (27.0-33.0); MCHC 32.8 % (32.0-36.0); MCV 86.6 fL (80-95); MPV 12.7 fL (8.0-11.0); Monocytes % 7.2; Neutrophils % 65.3; Nucleated RBC 0 %; Platelet Count 197 10^3/uL (130-400); RBC 4.61 10^6/uL (3.93-5.22); RDW 13.2 % (11.7-14.6); RDW-SD 41.6 fL; WBC 10.94 10^3/uL (4.4-10.8)
[2020-12-04 21:05] LABS: Absolute Basophil Count 0.05 10^3/uL (0.0-0.2)
[2020-12-04 21:22] LABS: ALT 23 U/L (14-59); AST 13 U/L (15-37); Albumin 3.6 g/dL (3.4-5.0); Alkaline Phosphatase 142 U/L (46-116); Anion Gap 6.7 mmol/L (3-11); BUN 23 mg/dL (7-18); Bilirubin, Total 0.3 mg/dL (0.2-1.0); CO2 31.3 mmol/L (21.0-32.0); CREATININE 1.1 mg/dL (0.55-1.02); Calcium 8.9 mg/dL (8.5-10.1); Chloride 103 mmol/L (98-107); Estimated GFR 50.33 (mL/min/1.73m2); Glucose 217 mg/dL (74-106); Sodium 141 mmol/L (136-145); Total Protein 7.6 g/dL (6.4-8.2)
[2020-12-04 21:24] LABS: Potassium 2.9 mmol/L (3.5-5.1)
[2020-12-04] MEDS: Potassium Chloride 20 MEQ TABCR 40 MEQ PO (21:53)
[2020-12-04 21:58] VITALS: BP 142/77; PULSE 84; RESP 16; TEMP 36.6; O2SAT 95
== END 2020-12-04 22:02 | disposition home or self-care (01) ==
PROVIDERS: Emergency Provider Registered Nurse Emergency; PCP Nurse Practitioner Family
DX: L76.22 Postprocedural hemorrhage of skin and subcutaneous tissue following other procedure (principal)
CPT/HCPCS: 36415; 80053; 86850; 86900; 86901; 99283; 85025

== ENCOUNTER 2021-04-06 15:45 | Outpatient (REF) | payer MEDICAID, SELFPAY ==
[2021-04-06 21:57] LABS: Abs Immature Grans 0.04 10^3/uL (0.0-0.06); Absolute Basophil Count 0.06 10^3/uL (0.0-0.2); Absolute Lymphocyte Count 2.38 10^3/uL (1.2-3.4); Absolute Monocyte Count 0.61 10^3/uL (0.1-0.8); Absolute Neutrophil Count 4.81 10^3/uL (1.2-6.7); Basophils % 0.7; Eosinophils % 3.7; HCT 40.5 % (36.0-46.0); HGB 12.6 g/dL (11.2-15.7); Immature Grans % 0.5; MCH 28.4 pg (27.0-33.0); MCHC 31.1 % (32.0-36.0); MCV 91.4 fL (80-95); MPV 13.8 fL (8.0-11.0); Monocytes % 7.4; Neutrophils % 58.7; Nucleated RBC 0 %; Platelet Count 175 10^3/uL (130-400); RBC 4.43 10^6/uL (3.93-5.22); RDW 13.4 % (11.7-14.6); RDW-SD 45.1 fL
[2021-04-06 22:24] LABS: ALT 28 U/L (14-59); AST 22 U/L (15-37); Albumin 3.7 g/dL (3.4-5.0); Alkaline Phosphatase 113 U/L (46-116); Anion Gap 8.3 mmol/L (3-11); BUN 19 mg/dL (7-18); Bilirubin, Total 0.3 mg/dL (0.2-1.0); CO2 29.7 mmol/L (21.0-32.0); CREATININE 0.9 mg/dL (0.55-1.02); Calcium 8.9 mg/dL (8.5-10.1); Chloride 104 mmol/L (98-107); GGT 27 U/L (5-55); Glucose 109 mg/dL (74-106); Magnesium 2.1 mg/dL (1.8-2.4); Potassium 3.6 mmol/L (3.5-5.1); Sodium 142 mmol/L (136-145); Vitamin B12 283 pg/mL (193-986)
== END 2021-04-06 15:46 | disposition home or self-care (01) ==
LOC: NCHCN 15:45
PROVIDERS: PCP Nurse Practitioner Family; Visit Provider Nurse Practitioner Family
DX: E11.9 Type 2 diabetes mellitus without complications (principal); E53.8 Deficiency of other specified B group vitamins; K76.0 Fatty (change of) liver, not elsewhere classified; K30 Functional dyspepsia; J45.40 Moderate persistent asthma, uncomplicated; E78.5 Hyperlipidemia, unspecified; E66.9 Obesity, unspecified; I10 Essential (primary) hypertension
CPT/HCPCS: 80053; 82607; 82977; 83735; 85025

== ENCOUNTER 2021-05-13 01:27 | Outpatient (CLI) | payer MEDICAID, SELFPAY ==
--- NOTE | 2021-05-13 | DI.US_ITS ---
Exam(s) US ABDOMEN EXAM: US ABDOMEN CLINICAL HISTORY: LIVER STEATOSIS, K76.0 TECHNIQUE: Ultrasound of complete upper abdomen performed using standard protocol. COMPARISON: CT CT ABDOMEN PELVIS W from 05/06/2019 FINDINGS: There is no ascites evident. LIVER: Liver appears hyperechoic indicating steatosis. There no discrete focal hepatic lesions evide nt. GALLBLADDER/BILIARY: Gallbladder surgically absent. The common hepatic duct ismeasures 10 millimeters, probably related post cholecystectomy status. PANCREAS: There is no evidence of obvious pancreatic mass nor dilatation of the pancreatic duct. [place] creatic tail was not well visualized due to overlying bowel gas. SPLEEN: The spleen is not enlarged and there are no intrasplenic lesions evident. KIDNEYS:Kidneys exhibit normal size with no evidence of solid mass, calculus, nor hydronephrosis. No cortical cysts evident. ABDOMINAL AORTA: There is no evidence of abdominal aortic aneurysm. IVC: Normal diameter where visualized. IMPRESSION: 1. The gallbladder surgically absent. CBD diameter is 10 millimeters. Probably related to post cho lecystectomy status 2. Hepatic steatosis. Correlation with appropriate hepatic blood work is recommended. 3. The pancreatic tail and adjacent body not able to be visualized due to overlying bowel gas. Panc reatic head and neck appear unremarkable. There is no ascites DATA REPOSITORY:
== END 2021-05-13 01:47 ==
PROVIDERS: PCP Nurse Practitioner Family; Visit Provider Nurse Practitioner Family
DX: K76.0 Fatty (change of) liver, not elsewhere classified (principal)
CPT/HCPCS: 76700

== ENCOUNTER 2021-09-16 03:45 | Outpatient (CLI) | payer MEDICAID, SELFPAY ==
--- NOTE | 2021-09-16 13:00 | DI.MAMMO_ITS ---
Exam(s) MAMMO SCREENING EXAM: MAMMO SCREENING CLINICAL HISTORY: SCREENING, Z12.31 TECHNIQUE: Mammograms were interpreted according to the usual protocol including computer analysis w [employer] CAD system, tomosynthesis and C-view imaging. COMPARISON: 2012 through 2019 FINDINGS: The breasts are composed of mainly fatty density , Breast Density category A. No suspicious masses or suspicious microcalcifications are seen. No skin thickening or abnormal axillary lymph nodes are seen. There has been no significant change from prior exams. IMPRESSION: BI-RADS Category 1, Negative mammogram Yearly screening mammography is recommended. Breast Density - Category A, fatty density. A negative radiographic report should not delay biopsy if a dominant or clinically suspicious mass is present. Up to ten percent of cancers are not identified on mammography. A negative report may reinforce clinical impression. Adenosis and dense breasts may obscure an underlying neoplasm. False positive reports average 6 to 10%. Patient will receive a letter notifying them of these results.
== END 2021-09-16 04:05 ==
PROVIDERS: PCP Nurse Practitioner Family; Visit Provider Nurse Practitioner Family
DX: Z12.31 Encounter for screening mammogram for malignant neoplasm of breast (principal)
CPT/HCPCS: 77063; 77067

== ENCOUNTER → 2021-10-12 01:50 | Outpatient (CLI) | payer MEDICAID, SELFPAY ==
--- NOTE | 2021-10-12 | DI.US_ITS ---
Exam(s) US ABDOMEN EXAM: US ABDOMEN CLINICAL HISTORY: ABD PAIN R10.9 TECHNIQUE: Ultrasound abdomen performed using standard protocol. COMPARISON: CT CT ABDOMEN PELVIS W from 05/06/2019 US US ABDOMEN from 05/13/2021 FINDINGS: ABDOMINAL AORTA AND IVC: Visualized portions normal caliber. PANCREAS: Normal where visualized. LIVER: There is diffuse increased echogenicity of the liver consistent with fatty infiltration. The liver measures 16 cm long. Hepatopedal flow in the Portal Vein. GALLBLADDER:The patient is status post cholecystectomy. BILIARY SYSTEM: Common bile duct measures < 7 mm. No intrahepatic biliary ductal dilation. KIDNEYS: Kidneys are symmetric in size. No evidence of renal calculi. No evidence of hydronephrosis. There are bilateral parapelvic cysts. This can be seen on the CT scan from 05/06/2019. SPLEEN: Not enlarged. ASCITES: None seen. IMPRESSION: 1. Hepatic steatosis. 2. Status post cholecystectomy. No biliary ductal dilatation. DATA REPOSITORY:
== END ==
PROVIDERS: PCP Nurse Practitioner Family; Visit Provider Nurse Practitioner Family
DX: R10.84 Generalized abdominal pain (principal); K76.0 Fatty (change of) liver, not elsewhere classified; Z90.49 Acquired absence of other specified parts of digestive tract
CPT/HCPCS: 76700

== ENCOUNTER 2022-04-04 14:42 | Outpatient (REF) | payer MEDICAID, SELFPAY ==
[2022-04-04 16:59] LABS: Abs Immature Grans 0.01 10^3/uL (0.0-0.06); Absolute Basophil Count 0.05 10^3/uL (0.0-0.2); Absolute Eosinophil Count 0.21 10^3/uL (0.0-0.7); Absolute Lymphocyte Count 2.29 10^3/uL (1.2-3.4); Absolute Neutrophil Count 4.43 10^3/uL (1.2-6.7); Basophils % 0.7; Eosinophils % 2.8; HCT 43.7 % (36.0-46.0); HGB 13.7 g/dL (11.2-15.7); Immature Grans % 0.1; Lymphocytes % 30.2; MCH 27.7 pg (27.0-33.0); MCHC 31.4 % (32.0-36.0); MCV 89 fL (80-95); Monocytes % 7.9; Neutrophils % 58.3; Platelet Count 195 10^3/uL (130-400); RBC 4.94 10^6/uL (3.93-5.22); RDW 12.9 % (11.7-14.6); WBC 7.59 10^3/uL (4.4-10.8)
[2022-04-04 17:34] LABS: Vitamin D 25 Total 12.9 ng/mL (30-100)
[2022-04-04 17:43] LABS: ALT 21 U/L (14-59); AST 19 U/L (15-37); Albumin 3.8 g/dL (3.4-5.0); Alkaline Phosphatase 108 U/L (46-116); Anion Gap 8.4 mmol/L (3-11); BUN 14 mg/dL (7-18); Bilirubin, Total 0.5 mg/dL (0.2-1.0); CO2 30.6 mmol/L (21.0-32.0); CREATININE 0.9 mg/dL (0.55-1.02); Calcium 9.3 mg/dL (8.5-10.1); Chloride 100 mmol/L (98-107); Estimated GFR 71.83 (mL/min/1.73m2); Glucose 103 mg/dL (74-106); Magnesium 1.7 mg/dL (1.8-2.4); Potassium 3.5 mmol/L (3.5-5.1); Sodium 139 mmol/L (136-145); Total Protein 7.9 g/dL (6.4-8.2); Vitamin B12 347 pg/mL (193-986)
[2022-04-04 17:53] LABS: GGT 10 U/L (5-55)
[2022-04-04 19:26] LABS: Diff Comment PLT Morph Reviewed
[2022-04-04 19:27] LABS: RBC Morphology Normal
== END 2022-04-04 14:43 | disposition home or self-care (01) ==
LOC: NCHCN 14:42
PROVIDERS: PCP Nurse Practitioner Family; Visit Provider Nurse Practitioner Family
DX: I10 Essential (primary) hypertension (principal); E78.5 Hyperlipidemia, unspecified; K76.0 Fatty (change of) liver, not elsewhere classified; R74.8 Abnormal levels of other serum enzymes; K30 Functional dyspepsia; E11.9 Type 2 diabetes mellitus without complications; E53.8 Deficiency of other specified B group vitamins
CPT/HCPCS: 80053; 82306; 82607; 82977; 83735; 85025

== ENCOUNTER → 2022-04-22 00:50 | Outpatient (CLI) | payer MEDICAID, SELFPAY ==
--- OUTSIDE RECORDS SUMMARY | 2022-04-22 00:59 | XMS_ITS | Encounter Summary ---
:1960 Author Organization [facility] [place] [address] Care Team Providers Name Role Phone Jonah Alaniz DENNISE Primary Care Provider [phone] Reason for Visit Reason Comments Left Leg Pain Encounter Details Date Type Department Care Team Description 01/26/2015 Office Visit Pain Management at [facility] Neu ropathic pain of lower extremity, left; Asaf CARTER Left leg pain [address] [place] [facility] [address] [place] [address] [phone] Social History Tobacco Use Types Packs/Day Years Used Date Never Smoker Alcohol Use Standard Drinks/Week Comments No 0 (1 standard drink = 0.6 oz pure alcoho l) Sex Assigned at Date Recorded Not on file documented as of this encounter Last Filed Vital Signs Vital Sign Reading Time Taken Comments Blood Pressure 135/81 01/26/2015 1:58 PM EDT Pulse 78 01/26/2015 1:58 PM EDT Temperature - - Respiratory Rate - - Oxygen Saturation 98% 01/26/2015 1:58 PM EDT Inhaled Oxygen Concentration - - Weight 115.2 kg (254 lb) 01/26/2015 1:58 PM EDT Height 167.6 cm (5' 6) 01/26/2015 1:58 PM EDT Body Mass Index 41 01/26/2015 1:58 PM EDT documented in this encounter Progress Notes Analia Rubio APRN - 01/26/2015 2:08 PM EDT [facility] [place] [address] Phone: PAIN MANAGEMENT NEW PATIENT / CONSULTATION NOTE DATE OF VISIT 01/26/2015 Patient Amanda Contreras 1960 REFERRING PROVIDER Jonah Alaniz APRN PRIMARY CARE PROVIDER JONAH ALANIZ APRN CHIEF COMPLAINT: Per patient I want you to help me with my leg pain Amanda Contreras is a 54 y.o. female with leg pain, who is seen in consultation at the request of Jonah Alaniz APRN for evaluation, recommendations, and mangeement.The history is obtained from the patient, and I have reviewed extensive medical records provided by the referring physician and located in the electronic medical record to fill in gaps in the patient's recollection of events, treatments and outcomes. Developed left leg pain after bowling in February (no injury or specific event) Tried conservative therapy with acetaminophen and rest. X Ray Lumbar spine 11/13/14 degenerative changes involving the lower lumbar spine (severe facet joint degenerative changes L4-5, L5-S1) MRI was denied by insurance company. Had bilateral leg ultrasound in [facility] negative for DVT. Tried Vicodin (nausea) and gabapentin (nausea). Evaluated by vascular at on 12/26/14- no evidence of arterial disease, repeat duplex left leg negative for DVT- recommended neurology consult. HPI PAIN ASSESSMENT: Location: left leg, from thigh to ankle, whole leg, front, back, and sides Onset: when started bowling last February thought it was my muscle No trauma Quality: stretching, something wants to come out, like having a baby, worse than a charley horse, I want to cut it off Popping, clicking, grinding sounds: N Variation/Pattern: constant Radiation: not into foot Weakness, numbness, tingling:N Saddle Anesthesia:N Other associated symptoms: sheets at night hurt the leg Severity today: 04/25 Best past week: Worst past week: Ave past week: 04/25 Alleviating factors:nothing makes it feel better Aggravating factors:worse with lying down, no better with sitting, can't climb stairs, getting out of chair History of cancer: N MEDICATIONS AND PERCENT PAIN RELIEF: Acetaminophen: (6) 325 mg per day X 1 months- no relief NSAID: was told by PCP not to take due to hypertension Opioids: Vicodin made her GI upset/sick Antidepressants: N Anticonvulsants: gabapentin (made her GI upset) Topicals: uses icy/hot didn't work TREATMENTS AND PERCENT PAIN RELIEF: Injections: N Surgery: N Physical Therapy:N Acupuncture: N Chiropractic: N Trigger Point: N Meditation/Imagery:N CBT: N Yoga/Movement: N Marijuana: N MEDICATIONS Current Outpatient Prescriptions on File Prior to Visit Medication Sig Dispense Refill ??? atenolol (TENORMIN) 50 mg Tablet Take 25 mg by mouth daily. No current facility-administered medications on file prior to visit. ADVERSE DRUG REACTIONS Allergies as of 01/26/2015 - Review Complete 01/26/2015 Allergen Reaction Noted ??? Codeine 12/01/2014 ??? Gabapentin 12/01/2014 ??? Pcn [penicillins] 12/01/2014 PAST MEDICAL HISTORY Past Medical History Diagnosis Date ??? Hypertension ??? Depression ??? Obesity (BMI 30-39.9) PAST SURGICAL HISTORY Past Surgical History Procedure Laterality Date ??? Parathyroidectomy Left 05/28/1990 adenoma ??? Tubal ligation Bilateral 1982 OBSTETRIC HISTORY Post menopausal X 1 year FAMILY HISTORY Non contributory SOCIAL HISTORY History Social History ??? Marital Status: Spouse Name: N/A Number of Children: 4 ??? 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 Smoking status: Never Smoker ??? Smokeless tobacco: Not on file ??? Alcohol Use: No ??? Drug Use: No ??? Sexual Activity: Not on file Other Topics Concern ??? Not on file Social History Narrative Working:unemployed electronic assembler group leader; cares for grandchildren now Lives with: daughter, grandchildren ADL limitations:hurts in shower; climbing over tub Exercise/activities:used to walk 5 miles, stopped due to pain, can't drive Leisure activities: can't do anything OPIOID RISK TOOL Score each Score Score box Female Male 1. Family History of Substance Abuse Alcohol [ ] 1 3 Illegal Drugs [ ] 2 3 Prescription Drugs [ ] 4 4 2. Personal History of Substance Abuse Alcohol [ ] 3 3 Illegal Drugs [ ] 4 4 Prescription Drugs [ ] 5 5 3. Age (Star box if 16-45) [ ] 1 1 4. History of Preadolescent Sexual Abuse [ ] 3 0 5. Psychological Disease [ ] 2 2 (Attention Deficit Disorder, Obsessive Compulsive Disorder, Bipolar, Schizophrenia) Depression [ ] 1 1 TOTAL 0 Total Score Risk Category: 0-3 = Low Risk 4-7 = Moderate Risk > 8 = High Risk myD-H Pain 01/26/2015 VR12 - Physical Summary Component 28.05 VR12 - Mental Component Summary 18.13 MODEMS Expectation 100 Family History of Substance Abuse (Female) Incomplete Personal History of Substance Abuse(Female) 0 Age 0 History of Preadolescent sexual abuse(Female) 0 Psychological Disease 0 ORT Total Scores (Female) Incomplete Review of Systems Constitutional Denies fevers, chills, + recent weight change gained 30 lbs since July due to inactivity, fatigue HEENT Denies hearing, vision, smell problems; + recent stress headaches; no teeth Cardiovascular Denies chest pain or discomfort, palpitations, edema, [place] Respiratory Denies cough, SOB, wheezing, asthma, snoring at night, sleep apnea, GI Denies N/V, heartburn, diarrhea, constipation, liver problems, dysphagia, black tarry stools Denies kidney problems, infections, blood in urine, kidney stones, incontinence, frequency Hormonal Post menopausal Musculoskeletal Denies weakness, paralysis, joint pains or stiffness, +use of assistive devices crutches from sister in law; using wheelchair long distances Neurologic Denies seizures, convulsions, stroke, dizziness, passing out, paralysis, numbness, tremors Hematologic Denies prolonged bleeding, easy bruising, lymph gland swelling Dermatologic Denies rashes, sores, itching, color changes, changes in hair or nails Endocrine Denies thyroid problems, heat or cold intolerance, excessive sweating, diabetes Peripheral Vasc Denies intermittent claudication, leg cramps, varicose veins, blood clots Sleep Trouble falling asleep/staying asleep Due to pain, shifts positions Mood Psychiatric Depression and frustration at situation, limitations. No thoughts of hurting self PHYSICAL EXAMINATION Filed Vitals: 01/26/15 1358 BP: 135/81 Pulse: 78 Body mass index is 41.02 kg/(m^2). Appearance/ Behavior Tearful, appears uncomfortable, shifting weight in chair; cooperative Eyes Sclera anicteric, conjunctiva clear. ENT Hearing grossly intact Lungs CTA bilaterally Cardiovascular Reg RR without murmur, Skin No rash, asymmetric hair loss, bruises, scars, swelling Musckuloskeletal Inspection/Palpation/ Range of Motion/Facet Loading maneuvers Gait: antalgic favoring left leg Assistive device: wheelchair today Heel, toe, heel to toe: unable due to pain Palpation: pain with palpation and light touch down entire left leg; no pain with spine palpation; no SI joint pain, no buttock pain Trunk flexion to 60 degrees no back pain Trunk extension to 20 Degrees no back pain Trunk lateral extension to 20 degrees no back pain Straight leg raise on the right negative pain and left positive pain entire leg NORRIS left does cause entire leg leg with ROM limitations Pain; right side no pain or limitation Neuro Motor Strength Segment Muscle Action Bilateral Results C5 Detoid Shoulder abduction 5/5 C5 Biceps Elbow flexion 5/5 C6 Extensor carpi radialis Wrist extension 5/5 C7 Triceps Elbow extension 5/5 C8, T1 Hand intrinsics Grasp 5/5 L2-5, S 1 Gluteus medius Hip Adduction 5/5 Right 4/5 Left L4-5, S1 Gluteus medius Hip Abduction 5/5 L2 Iliopsoas Hip flexion 5/5 right 4/5 left L3 Quadriceps Knee extension 5/5 Right 4/5 left L4 Tibialis anterior Ankle Dorsiflexion 5/5 Right 4/5 left L5 Extensor hallucis Great toe extension 5/5 S1 Gastrocnemius Ankle Plantar flexion 5/5 Reflexes: Segment Tendon Bilateral C5 Biceps 2+ C6 Brachioradialis 2+ C7 Triceps 2+ L3-4 Patella 2+ S1 Ankle 2+ Upper [place] Neg Lower Babinski Down going Clonus Neg Sensory exam: + allodynia, hyperpathia, hyperalgesia tested by pinprick on left leg compared to right LABORATORY STUDIES None RADIOGRAPHIC STUDIES X Ray Lumbar spine 11/13/14 degenerative changes involving the lower lumbar spine (severe facet joint degenerative changes L4-5, L5-S1) The [place] Prescription Monitoring Program was reviewed and no concerns were identified. IMPRESSION The patient was also seen and examined by Dr. Adam Prabhakar who developed the assessment and plan. Please refer to his note from today. 54 year old with progressively worse entire left leg pain, unclear etiology, significantly interfering with function. Has a neuropathic component with allodynia, hyperalgesia, and hyperpathia. Unlikelyrelated to joints as it does not improve with taking the weight off. Unusual diabetic neuropathic pre sentation is a consideration. PLAN/RECOMMENDATIONS 1. Xrays of left femur, tibia, and fibula today to look for bone/joint pathology 2. CT scan of pelvis to look for mass or other pathology impinging on lumbar/sacral plexus 3. Lyrica 75 mg bid for neuropathic pain 4. Follow up with us within [address] scan 5. I will contact PCP re: most recent blood sugar results. 6. Recommend keeping neurologist appointment in [facility] on 02/19/15 Amanda Contreras had the opportunity to ask questions and indicated that all questions were answered toher satisfaction. Analia Rubio, DNP, ANP-CS, GRAPHIC DESIGNER, Nurse Practitioner [facility] Addendum: I spoke with ELLIE Smith after patient left the office. Last blood sugar was 12/30/2013 (77)- recommended check A1C to make sure she doesn't have diabetes (recent weight gain). Mar stated patient had CT abd and pelvis ion 11/19/14 at [facility] that didn't show any pathology- she will fax usa copy. Discussed our plan with her. I have seen the patient and reviewed the resident's above history and I agree with the details as written. I personally interviewed the patient and performed critical or vázquez elements of the physical examination as appropriate. The assessment and management plan were formulated in discussion with me and I agree with them as documented. Adam Prabhakar MD Director Long Term Care of Anesthesiology [facility] documented in this encounter Plan of Treatment Not on filedocumented as of this encounter Results XR tibia fibula AP & lateral (01/26/2015 4:37 PM EDT) Anatomical Region Laterality Modality N/A Radiographic Imaging Specimen (Source) Anatomical Collection Method Collection Time Re ceived Time Location / / Volume Laterality 01/26/2015 4:37 PM EDT Impressions 01/26/2015 4:52 PM EDT IMPRESSION: Limited exam, grossly no fracture or dis location. Limited exam of the left knee and ankle. Question cortical irregularit y distal left fibula; if ankle pain, recommend ankle series. Narrative 01/26/2015 4:52 PM EDT EXAMINATION: TIBIA and FIB AP and LAT/LEFT CLINICAL HISTORY: left leg pain; no trau ma, looking for bone or joint pathology TECHNIQUE: Crosstable lateral and AP lef t lower leg; left knee is not included on lateral and limited view of left ankl e COMPARISON: None FINDINGS: Grossly, no fracture or dislocation. Mil d degenerative changes left knee. Mild soft tissue swelling posterior lateral l ower leg. ??Possible cortical irregularity distal left fibula; if left ankle pain present, recommend ankle series. Procedure Note Shandra Aguilera MD - 5 EXAMINATION: TIBIA and FIB AP and LAT/LE FT CLINICAL HISTORY: left leg pain; no trau ma, looking for bone or joint pathology TECHNIQUE: Crosstable lateral and AP lef t lower leg; left knee is not included on lateral and limited view of left ankl e COMPARISON: None FINDINGS: Grossly, no fracture or dislocation. Mil d degenerative changes left knee. Mild soft tissue swelling posterior lateral l ower leg. Possible cortical irregularity distal left fibula; if left ankle pain present, recommend ankle series. IMPRESSION IMPRESSION: Limited exam, grossly no fracture or dis location. Limited exam of the left knee and ankle. Question cortical irregularit y distal left fibula; if ankle pain, recommend ankle series. Adam Prabhakar MD IMG DX ORDERABLES XR femur 2 view (01/26/2015 4:37 PM EDT) Anatomical Region Laterality Modality Thigh N/A Radiographic Imaging Specimen (Source) Anatomical Collection Method Collection Time Re ceived Time Location / / Volume Laterality 01/26/2015 4:37 PM EDT Impressions 01/26/2015 5:16 PM EDT IMPRESSION: Limited exam. Mild degenerative changes left hip and knee No fracture or dislocation. Narrative 01/26/2015 5:16 PM EDT EXAMINATION: DIAG FEMUR 2 VIEWS/LEFT CLINICAL HISTORY: worsening left leg jim n ??no trauma TECHNIQUE: AP and crosstable lateral lef t femur COMPARISON: None FINDINGS: Grossly, no fracture or dislocation iden tified. Soft tissue calcification adjacent to the greater trochanter consi stent with trochanteric bursitis. Mild degenerative changes of the left knee. P ossible small joint effusion left knee. Procedure Note Shandra Aguilera MD - 5 EXAMINATION: DIAG FEMUR 2 VIEWS/LEFT CLINICAL HISTORY: worsening left leg jim n no trauma TECHNIQUE: AP and crosstable lateral lef t femur COMPARISON: None FINDINGS: Grossly, no fracture or dislocation iden tified. Soft tissue calcification adjacent to the greater trochanter consi stent with trochanteric bursitis. Mild degenerative changes of the left knee. P ossible small joint effusion left knee. IMPRESSION IMPRESSION: Limited exam. Mild degenerat shey changes left hip and knee No fracture or dislocation. Adam Prabhakar MD IMG DX ORDERABLES documented in this encounter Visit Diagnoses Diagnosis Neuropathic pain of lower extremity, lef t Left leg pain Pain in limb Left leg pain Pain in limb Neuropathic pain of lower extremity, lef t Left leg pain Pain in limb Neuropathic pain of lower extremity, lef t documented in this encounter Care Teams Sourcing Consultant Relationship Specialty Start Date End Date Jonah Alaniz APRN PCP - General 11/27/14 [address] [place] [address] documented as of this encounter
--- OUTSIDE RECORDS SUMMARY | 2022-04-22 00:59 | XMS_ITS | Encounter Summary ---
:1960 Author Organization [facility] [place] [address] Care Team Providers Name Role Phone Shalonda Nicholas DENNISE Primary Care Provider [phone] Encounter Details Date Type Department Care Team Description 12/26/2014 [facility] [place] [address] Social History Tobacco Use Types Packs/Day Years Used Date Never Smoker Sex Assigned at Date Recorded Not on file documented as of this encounter Plan of Treatment Not on filedocumented as of this encounter Procedures Procedure Name Priority Date/Time Associated Diagnosis Comme nts DUPLEX FOR DVT, Routine 12/26/2014 9:08 AM Leg swelling Result s for this LEG, UNILAT EDT procedure are i n the results section. documented in this encounter Results Duplex for DVT, Leg, Unilat (12/26/2014 9:08 AM EDT) Component Value Ref Test Analysis Performed At [facility] Range Method Time Signature VB Text VASCUBASE Report Department: Vascular Surgery Lab Patient: [id number] (TANO CONTRERAS) CPT Code: 78024 ICD-9: Referring Physician: NANCY RUGGIERO Indication: ? L leg pain and swelling. LEFT: Patent common femoral vein and popliteal vein with spo ntaneous, respirophasic Doppler wavefo mo that respond normally to augmentation maneuvers. The common femoral vein, sap henofemoral junction, femoral vein through the thigh and popliteal vein are fully compressible. Patent posterior tibial and peroneal veins with no evidence of thrombus. Interpretation: LEFT: ??No evidence of lower extremity deep venous thrombosi s. Comparison: ??No previous study in our vascular lab da tabase for comparison. Electronically Signed by: LEE CLEMONS on 2014-12-30 11:51: 19 PM VB Text End of Report VASCUBASE Report Specimen (Source) Anatomical Collection Method Collection Time Re ceived Time Location / / Volume Laterality 12/26/2014 9:08 AM EDT Nnacy Ruggiero MD VASCULAR ORDERABLES Performing Organization Address City/State/ZIP Code Phon e Number [email or web address] documented in this encounter Visit Diagnoses Diagnosis Leg swelling Swelling of limb documented in this encounter Care Teams Planting Material Remover Relationship Specialty Start Date End Date Shalonda Nicholas, DENNISE PCP - General 11/27/14 [address] [place] [address] documented as of this encounter
--- OUTSIDE RECORDS SUMMARY | 2022-04-22 00:59 | XMS_ITS | Encounter Summary ---
:1960 Author Organization [facility] Address [address] [facility] [place] [address] Care Team Providers Name Role Phone CristopherShalonda mei DENNISE Primary Care Provider Encounter Details Date Type Department Care Team Description 01/26/2015 Hospital Encounter XRay at [facility] Left leg pain; [address] Neuropathic pain of lower [place]ity, [place] [address] Social History Tobacco Use Types Packs/Day Years Used Date Never Smoker Alcohol Use Standard Drinks/Week Comments No 0 (1 standard drink = 0.6 oz pure alcoho l) Sex Assigned at Date Recorded Not on file documented as of this encounter Medications at Time of Discharge Medication Sig Dispensed Refills Start Date End Date atenolol (TENORMIN) 50 Take 25 mg by mouth 0 mg Tablet daily. pregabalin (LYRICA) 75 Take 1 capsule by 60 capsule 3 201402/25/2015 mg Capsule mouth 2 times daily for 30 days. documented as of this encounter Plan of Treatment Not on filedocumented as of this encounter Procedures Procedure Name Priority Date/Time Associated Diagnosis Comme nts XR FEMUR 2 VIEW Routine 01/26/2015 4:37 PM Left leg pain Results for this EDT Neuropathic pain of procedur e are in lower extremity, left the re sults section. documented in this encounter Results XR femur 2 view (01/26/2015 4:37 PM [...] documented in this encounter Visit Diagnoses Diagnosis Left leg pain Pain in limb Neuropathic pain of lower extremity, lef t documented in this encounter Care Teams Flight Line Service Attendant Relationship Specialty Start Date End Date Shalonda Nicholas, PROGRAM OFFICER PCP - General 11/27/14 [address] [place] [address] documented as of this encounter
--- OUTSIDE RECORDS SUMMARY | 2022-04-22 00:59 | XMS_ITS | Encounter Summary ---
:1960 Author Organization [facility] Address [address] [facility] [place] [address] Care Team Providers Name Role Phone Shalonda Nicholas DENNISE Primary Care Provider [phone] Encounter Details Date Type Department Care Team Description 01/26/2015 Hospital Encounter XRay [place] [facility] Left leg pain; [address] Neuropathic pain of lower ex tremity, [place] [address] Social History Tobacco Use Types Packs/Day [...] Priority Date/Time Associated Diagnosis Comme nts XR TIBIA FIBULA AP Routine 01/26/2015 4:37 PM Left leg p ain Results for this AND LATERAL EDT Neuropathic pain of procedur e are in lower extremity, the results left section. documented in this encounter Results XR tibia fibula AP [...] series. Adam Prabhakar MD IMG DX ORDERABLES documented in this encounter Visit Diagnoses Diagnosis Left leg pain Pain in limb Neuropathic pain of lower extremity, lef t documented in this encounter Care Teams Comptometer Operator Relationship Specialty Start Date End Date Shalonda Nicholas, KILN FEEDER PCP - General 11/27/14 [address] [place] [address] documented as of this encounter
--- OUTSIDE RECORDS SUMMARY | 2022-04-22 00:59 | XMS_ITS | Encounter Summary ---
:1960 Author Organization [facility] [place] [address] Care Team Providers Name Role Phone Shalonda Nicholas DENNISE Primary Care Provider [phone] Encounter Details Date Type Department Care Team Description 01/30/2015 Telephone Pain Management at [facility]ace [place], [place] [address] Social History Tobacco Use Types Packs/Day Years Used Date Never Smoker Alcohol Use Standard Drinks/Week Comments No 0 (1 standard drink = 0.6 oz pure alcoho l) Sex Assigned at Date Recorded Not on file documented as of this encounter Miscellaneous Notes Telephone Encounter - Candace Matthews RN - 01/30/2015 7:48 AM EDT Pain [facility] Center Preauthorization denial Patient: Amanda Contreras [id number] Pain Management Center Preauthorization Request Patient: Amanda Contreras [id number] Fax received from [facility] brianna Verduzco 'The patient must have a documented side effect, allergy or treatment failure to TWO drugs from the following:Gabapentin, tricylic antidepressant, SSRI antidepressant, SSRI antidepressant, Miscellaneous antidepressant, cyclobensaprine RX insurance plan: [place] [employer] insurance telephone: [phone] Patient Diagnosis: Neuro pathic pain of lower extremity 355.8 and Left Leg pain 729.5 Previous medications attempted: gabapentin,Acetaminophen,Nsaids, Vicodin __ sent to clinical review, patient informed _x_ denied, provider and patient informed __ provider does not wish to appeal denial, patient informed __ appeal initiated by provider, patient informed Candace Cassie, RN documented in this encounter Plan of Treatment Not on filedocumented as of this encounter Visit Diagnoses Not on filedocumented in this encounter Care Teams Nurse Wound Relationship Specialty Start Date End Date Shalonda Nicholas APRN PCP - General 11/27/14 [address] [place] [address] documented as of this encounter
--- OUTSIDE RECORDS SUMMARY | 2022-04-22 00:59 | XMS_ITS | Encounter Summary ---
:1960 Author Organization [place] [address] Care Team Providers Name Role Phone Shalonda Nicholas APRN Primary Care Provider [phone] Encounter Details Date Type Department Care Team Description 12/01/2014 Abstract Vascular Surgery at [facility] Vaishali Gregorio, [place] [address] Social History Tobacco Use Types Packs/Day Years Used Date Never Assessed Sex Assigned at Date Recorded Not on file documented as of this encounter Plan of Treatment Not on filedocumented as of this encounter Visit Diagnoses Not on filedocumented in this encounter Care Teams Rubber Press Operator Relationship Specialty Start Date End Date Shalonda Nicholas APRN PCP - General 11/27/14 [address] [place] [address] documented as of this encounter
--- OUTSIDE RECORDS SUMMARY | 2022-04-22 00:59 | XMS_ITS | Encounter Summary ---
:1960 Author Organization [facility] [place] [address] Care Team Providers Name Role Phone CristopherShalonda mei DENNISE Primary Care Provider [phone] Reason for Referral Consultation (Routine) - Complete - Unable to Contact Patient Specialty Diagnoses / Procedures Referred By Contact Refer red To Contact Neurology Diagnoses Neuropathic pain, leg, left Analia Godwin, Jasson Burris MD [facility] [place] [address] [place] [address] Phone: Fax: Referral ID Status Reason Start Expiration Visits Visits Date Date Requested Authorized [id number] Complete - Consult, 01/28/2015 01/28/2016 1 1 Unable to Test & Contact Treat Patient Encounter Details Date Type Department Care Team Description 01/28/2015 Orders Only Pain Management at Analia Godwin Neu ropathic pain, leg, Asaf [place] [facility] [place] [address] [place] [address] [phone] Social History Tobacco Use Types Packs/Day Years Used Date Never Smoker Alcohol Use Standard Drinks/Week Comments No 0 (1 standard drink = 0.6 oz pure alcoho l) Sex Assigned at Date Recorded Not on file documented as of this encounter Progress Notes Analia Godwin APRN - 01/28/2015 8:16 AM EDT X rays of left leg do not show explanation for neuropathic leg pain symptoms. Reviewed with Dr. Prabhakar. Noted left trochanteric bursitis on Xray- most likely related to imbalance due to leg pain- will not treat this now, as it is not the underlying cause of her symptoms. Dr. Prabhakar has spoken with Dr.Tom Schreiber who recommended referral to Dr. Jasson Jameson (neurology). Will set up this referral as soon as possible. Per Dr. Prabhakar, may consider lumbar sympathetic nerve block after neurology evaluation. I left a message on patient's phone this morning to have her call me back regarding xray results and plan. Analia Godwin, DNP, ANP, PSYCHIATRY INSTRUCTOR documented in this encounter Plan of Treatment Scheduled Referrals Name Type Priority Associated Diagnoses Order S chedule Referral to Outpatient Referral Routine Neuropathic pain, Ord ered: Neurology leg, left 01/28/2015 documented as of this encounter Visit Diagnoses Diagnosis Neuropathic pain, leg, left documented in this encounter Care Teams Explosive Operator Supervisor Relationship Specialty Start Date End Date Shalonda Nicholas APRN PCP - General 11/27/14 [address] [place] [address] documented as of this encounter
--- OUTSIDE RECORDS SUMMARY | 2022-04-22 00:59 | XMS_ITS | Encounter Summary ---
:1960 [place] [address] Care Team Providers Name Role Phone Shalonda Nicholas DENNISE Primary Care Provider Encounter Details Date Type Department Care Team Description 02/02/2015 Orders Only Pain Management at Analia Gonzalez APRN [facility] [place] [address] [place] [address] [phone] (Wo rk) Social History Tobacco Use Types Packs/Day Years Used Date Never Smoker Alcohol Use Standard Drinks/Week Comments No 0 (1 standard drink = 0.6 oz pure alcoho l) Sex Assigned at Date Recorded Not on file documented as of this encounter Progress Notes Analia Godwin APRN - 02/02/2015 10:02 AM EDT Insurance denied payment for Lyrica. Discussed with Dr. Prabhakar. Previous GI reaction to gabapentin.Will try amitriptyline 10 mg at night, may increase up to [address] Prabhakar spoke with Dr. Jameson and he (Dr. Jameson) is arranging appointment with neuropathy clinic. I called patient and left message on her answering machine regarding the amitriptyline and neuro appointment. I asked her to call me back so I would know she received the message and to see if she has any questions. Analia Godwin, DNP, ANP, LOAN REPRESENTATIVE documented in this encounter Plan of Treatment Not on filedocumented as of this encounter Visit Diagnoses Not on filedocumented in this encounter Care Teams Heel Edge Inker Machine Relationship Specialty Start Date End Date Shalonda Nicholas APRN PCP - General 11/27/14 [address] [place] [address] documented as of this encounter
--- OUTSIDE RECORDS SUMMARY | 2022-04-22 01:00 | XMS_ITS | Encounter Summary ---
:1960 Author Organization [facility] Address [address] [place] [address] Care Team Providers Name Role Phone Unavailable Primary Care Provider Unavailable Encounter Details Date Type Department Care Team Description 09/29/2003 Results Only [facility] - Lisa Peñaloza NP conversion [address] [place] [address] Social History Tobacco Use Types Packs/Day Years Used Date Never Assessed Sex Assigned at Date Recorded Not on file documented as of this encounter Plan of Treatment Not on filedocumented as of this encounter Procedures Procedure Name Priority Date/Time Associated Diagnosis Comme nts CYTOPATHOLOGY Routine 09/29/2003 0:00 EST Results for this procedure are i n the results section . documented in this encounter Results CYTOPATHOLOGY (09/29/2003 0:00 EST) Pathology Report: CYTOPATHOLOGY REPORT [facility] Reports generated via electronic interface contain manuel ginal data; however they are lacking the format of the original re port. Caution should be taken when reading/interpreting unfo rmatted reports. Name: ? TANO CONTRERAS ? Accession #: ? [id number] : ? 1960 (Age: 43) ??F ?Collect Date: ? 09/14 Location: ? [facility] ? Receive Date : ? 09/30/2003 Provider: ?LISA NEGRON SENIOR ENERGY MARKET COORDINATOR Copy to: ? Specimen/Source: ?ThinPrep Pap Test, Cervix/ Endocervix Last Menstrual Period: ? 09/24/2003 ? SPECIMEN ADEQUACY ? Satisfactory for Evaluation - transformation zone component present GENERAL CATEGORIZATION ? Other, see interpretation INTERPRETATION ? Reactive cellular libia nges associated with inflammation present (includes repair). Endometrial cells present in a woman equal to or great er than age 40. Negative for Intraepithelial Lesion or Malignancy. ? COMMENT ? Benign appearing endometrial cells on Pap tests are usually a normal finding in women with regular menstrual cycles, especi ally if the Pap was collected during the first h kody of the menstrual cycle. ??There is data showing that endometrial cells on Pap tests may be associated with endometrial/uterine abnormalities in post menopausal women o r in premenopausal women with abnormal bleeding. ??There is limited data on the significance of benign endometrial cells in post menopausal women on HRT. ??Clinical correlatio n is recommended. Note: ?? The Pap test is not an accurate test for the screening of endometrial lesions and should not be used as a follow up in patie nts with clinical suspicion of endometrial pathology. ? Document reviewed and electronically signed by: ? Qamar Jalloh MD ? Report Date: ??10/06/2003 14:49 End of Report Specimen Performing Organization Address City/State/ZIP Code Phon e Number [facility] [address] [place] [address] SERVICES [facility] [address] [place] [address] documented in this encounter Visit Diagnoses Not on filedocumented in this encounter
--- OUTSIDE RECORDS SUMMARY | 2022-04-22 01:00 | XMS_ITS | Encounter Summary ---
:1960 Author Organization [facility] Address [address] [place] [address] Care Team Providers Name Role Phone Devonte Young MD Primary Care Provider Encounter Details Date Type Department Care Team Description 07/27/2018 Results Only [facility]- Ron Gilbert, DRY PAN CHARGER-BC [address] [place] [id number] (Wo rk) Social History Tobacco Use Types Packs/Day Years Used Date Never Assessed Sex Assigned at Date Recorded Not on file documented as of this encounter Plan of Treatment Not on filedocumented as of this encounter Procedures Procedure Name Priority Date/Time Associated Diagnosis Comme nts PAP TEST- RESULT Routine 07/27/2018 0:00 EST Resu lts for this ONLY procedure are i n the results section. documented in this encounter Results PAP TEST- RESULT ONLY (07/27/2018 0:00 EST) Pathology Report: CYTOPATHOLOGY REPORT [facility] Reports generated via electronic interface contain manuel ginal data; SERVICES however they are lacking the format of the original re port. Caution should be taken when reading/interpreting unfo rmatted reports. Name: ? TANO CONTRERAS ? Accession #: ? [id number] ? : ? 1960 (Age: 57 ) ??F ?Collect Date: ? 07/27/2018 ? Location: ? [facility] ? Receive Date: ? 07/30/19 19 ? Provider: RON LILLY DRY PAN CHARGER-BC Copy to: ? Final Report SPECIMEN ADEQUACY ? Satisfactory for Evaluation - transformation zone component present GENERAL CATEGORIZATION ? Negative for Intraepithelial Lesion or Malignan cy ?? Last Menstrual Period: 5 Yrs ago Other: Additional clinical information: Z00.00 Z12.4 Z 01.419 Specimen/Source: ??Pap Test, Cervix, ThinPrep Imaging System with manual evaluation Document reviewed and electronically signed by: ? OVIDIO Mackenzie(ASCP) ? Report ??Date: 08/01/2018 11:10 HPV with Pap Test ? Date Ordered: ? 08/01/2018 ? Status: ?? Signed Out ?Date Complete: ? 08/02/2018 ? By: ??Sy stem Interface ? Date Reported: ? 08/02/2018 ? Interpretation RESULT: Negative for HPV. No E6 or E7 mRNA is detected from HPV types 16,18,31,3 3,35, 39,45,51,52,56,58,59,66, and 68 by storage garage attendant media ivanna amplification. Comments Document reviewed and electronically signed by: ? System Interface ? Report date: 08/02/2018 By the signature above, the attending physician certif ies that he/she has personally conducted a gross and/or microscopic examin ation of the described specimens and rendered or confirmed the above diagnosi s. End of Report Specimen Performing Organization Address City/State/ZIP Code Phon e Number [facility] [address] [place] [address] SERVICES documented in this encounter Visit Diagnoses Not on filedocumented in this encounter Care Teams Mounter Saxophones Relationship Specialty Start Date End Date Devonte Young MD PCP - General 01/11/17 [address] [place] [address] documented as of this encounter
--- OUTSIDE RECORDS SUMMARY | 2022-04-22 01:00 | XMS_ITS | Encounter Summary ---
:1960 Author Organization [facility] Address [address] [place] [address] Care Team Providers Name Role Phone Unknown, Provider Primary Care Provider Encounter Details Date Type Department Care Team Description 07/15/2016 Results Only [facility]- Samir Lopez MD [phone] [facility] [place] [address] (Wo rk) Social History Tobacco Use Types Packs/Day Years Used Date Never Assessed Sex Assigned at Date Recorded Not on file documented as of this encounter Plan of Treatment Not on filedocumented as of this encounter Procedures Procedure Name Priority Date/Time Associated Diagnosis Comme [facility] SURGICAL PATHOLOGY Routine 07/15/2016 9:50 EST Re sults for this procedure are i n the results section. documented in this encounter Results SURGICAL PATHOLOGY (07/15/2016 9:50 EST) Pathology Report: SURGICAL PATHOLOGY REPORT [facility] Reports generated via electronic interface contain manuel ginal data; LABORATORY however they are lacking the format of the original re port. SERVICES Caution should be taken when reading/interpreting unfo rmatted reports. Name: ? TANO PUENTES ? Accession #: ? [id number] ? : ? 1960 (Age: 55 ) ??F ? Collect Date: ? 07/15/2016 ? Location: ? [facility] ? Receive Date: ? 7 ? Provider: SAMIR ONTIVEROS MD Copy to: SHERMAN OLSON MD ? Final Pathologic Diagnosis: LABIA, VAGINAL WALL CYST, RIGHT, EXCISION: - Fragments of blood clot and scant supe rficial strips of squamous epithelium. - No definitive cyst lining identified. See comment. Comment: Deeper sections have been examined. ?? Dr. Benz 07/19/2016 7:29 PM Document reviewed and electronically signed by: FLOR DODD MD Report ??Date: 07/20/2016 16:12 By the signature above, the attending physician certif ies that he/she has personally conducted a gross and/or microscopic examin ation of the described specimens and rendered or confirmed the above diagnosi s. Specimen(s) Received: Contents of vaginal wall cyst, R labial cyst Clinical History: R labial/vaginal wall cyst, filled with organized bloo d clot Gross Description: ? Received in formalin labelled with proper patient identification (initials P, R) and labial cyst are multiple irregular fragmen ts of soft red-brown tissue (0.7 x 0.7 x 0.4 cm i n aggregate). No definitive cyst is identified. The specimen is submitted in toto in 1. LISA Powers ([facility]) 07/18/2016 11:44 AM End of Report Specimen Performing Organization Address City/State/ZIP Code Phon e Number [facility] [address] [place] [address] SERVICES documented in this encounter Visit Diagnoses Not on filedocumented in this encounter Care Teams Sap Pp Consultant Relationship Specialty Start Date End Date Unknown, Provider, PCP - General 05/23/15 01/10/17 documented as of this encounter
--- OUTSIDE RECORDS SUMMARY | 2022-04-22 01:00 | XMS_ITS | Encounter Summary ---
:1960 Author Organization [facility] Address [address] [place] [address] Care Team Providers Name Role Phone Unavailable Primary Care Provider Unavailable Encounter Details Date Type Department Care Team Description 11/11/2010 Results Only [facility] Arturo Sheppard, Laboratory Services - [address] [address] [phone] Social History Tobacco Use Types Packs/Day Years Used Date Never Assessed Sex Assigned at Date Recorded Not on file documented as of this encounter Plan of Treatment Not on filedocumented as of this encounter Procedures Procedure Name Priority Date/Time Associated Diagnosis Comme nts PAP TEST- RESULT Routine 11/11/2010 0:00 EDT Resu lts for this ONLY procedure are i n the results section. documented in this encounter Results PAP TEST- RESULT ONLY (11/11/2010 0:00 EDT) Pathology Report: CYTOPATHOLOGY REPORT ? [facility] ? [facility] Reports generated via electr onic interface contain original data; ? however they are lacking the format of the original report. ? Caution should be taken when reading/interpreting unformatted reports. ? Name: ? TANO CONTRERAS ? Accession #: ? [id number] ? : ? 1960 (Age: 50) ??F ?Collect Date: ? 11/11/2010 ? Location: ? [facility] ? Receive Date: ? 11/15/2010 ? Provider: ?ARTURO TH IBODEAU COTA ? Copy to: ? Specimen/Source: ? Pap Test, Cervix/Endocervix, ThinPrep Imaging System ? with manual evaluation ? Last Menstrual Period: ? 4/10/11 ? SPECIMEN ADEQUACY ? Satisfactory for Eval uation ? - transformation zone compon ent present ? GENERAL CATEGORIZATION ? Negative for Intraepi thelial Lesion or Malignancy ? Document reviewed and electr onically signed by: ? Gloria Verville,CT(ASCP) ? Report Date: ??11/17/ 2010 12:09 ? End of Report ? Specimen Performing Organization Address City/State/ZIP Code Phon e Number [facility] [address] [place] [address] SERVICES [facility] [address] [place] [address] documented in this encounter Visit Diagnoses Not on filedocumented in this encounter
--- OUTSIDE RECORDS SUMMARY | 2022-04-22 01:00 | XMS_ITS | Encounter Summary ---
:1960 Author Organization [facility] Address [address] [place] [address] Care Team Providers Name Role Phone Devonte Young MD Primary Care Provider Encounter Details Date Type Department Care Team Description 11/26/2020 Lab Requisition [facility] Lorenzo Patel for other Pathology & MD Dimitrios general examination Laboratory Medicine [address] [place], [place] [address] [facility] [address] [place], [place] [id number] Social History Tobacco Use Types Packs/Day Years Used Date Never Assessed Sex Assigned at Date Recorded Not on file documented as of this encounter Plan of Treatment Not on filedocumented as of this encounter Procedures Procedure Name Priority Date/Time Associated Diagnosis Comme nts SURGICAL PATHOLOGY Today 11/25/2020 12:25 Encounter for othe r Results for this EDT general examination procedur e are in the results section. documented in this encounter Results SURGICAL PATHOLOGY (11/25/2020 12:25 EDT) Final Diagnosis A. GALLBLADDER, CHOLECYSTECTOMY: [facility] EDICAL - Chronic cholecystitis with papillary cholesterolosis . CENTER - Cholelithiasis. LABORATORY SERVICES Attestation There was significant [facility] MEDICAL Electr onically resident/fellow CENTER signed by Ashlee bhatia, involvement in the LABORATORY MD Ana on diagnostic evaluation SERVICES 021 at 1744 of this case. By the signature below, the attending physician certifies that they have personally conducted a gross and/or microscopic examination of the described specimens and rendered or confirmed the above diagnosis. Clinical History Biliary colic [facility] Gross Description A. [facility] MEDICAL Received in formalin carine d with proper patient identification (initials P, R) and gallbladder is a focally disrupted gallbladder (6.1 x 2.5 x 0.6 cm). The cystic duct margin is inked. CENTER LABORATORY The serosa is pierce purple du ll and hyperemic. The mucosa is bile stained green with yellow streaking and an average wall thickness of 0.2 cm. Within the cavity, is a single yellow ovoid gallstone (2.1 c SERVICES m in greatest dimension). Th e cystic duct duct lumen appears patent. The cystic duct margin, en face, and 2 insurance verification representative sections are submitted in A1. LISA CHILEL([facility]) 11/26/2020 9:17 Resident/Fellow: Elvis Angela DO [facility] Performing Lab [facility] Scanned Images [facility] Specimen Tissue - Entire gallbladder (body struct ure) Performing Organization Address City/State/ZIP Code Phon e Number [facility] [address] [place] [address] SERVICES documented in this encounter Visit Diagnoses Diagnosis Encounter for other general examination documented in this encounter Care Teams Cmo Relationship Specialty Start Date End Date Devonte Young MD PCP - General 01/11/17 [address] [place] [address] documented as of this encounter
--- OUTSIDE RECORDS SUMMARY | 2022-04-22 01:00 | XMS_ITS | Encounter Summary ---
:1960 Author Organization [facility] Address [address] [place] [address] Care Team Providers Name Role Phone Unknown, Provider Primary Care Provider Encounter Details Date Type Department Care Team Description 01/10/2017 Hospital Encounter [facility]- [place] Unknown, Provider, [facility] [address] [place] [address] [place] [address] (Work) [phone] Social History Tobacco Use Types Packs/Day Years Used Date Never Assessed Sex Assigned at Date Recorded Not on file documented as of this encounter Discharge Disposition Disposition Code Departure Means Destination Home or Self Snf documented in this encounter Plan of Treatment Not on filedocumented as of this encounter Visit Diagnoses Not on filedocumented in this encounter Care Teams Knockdown Worker Relationship Specialty Start Date End Date Unknown, Provider, PCP - General 05/23/15 01/10/17 documented as of this encounter
--- OUTSIDE RECORDS SUMMARY | 2022-04-22 01:00 | XMS_ITS | Clinical Summary ---
:1960 Author Organization [facility] Address [address] [place] [address] Care Team Providers Name Role Phone Devonte Young MD Primary Care Provider Social History Tobacco Use Types Packs/Day Years Used Date Never Assessed Sex Assigned at Date Recorded Not on file Plan of Treatment Not on file Insurance Payer Benefit Plan Subscriber ID Effective Phone Address Typ e / Group Dates MEDICAID ACO MEDICAID ACO [id number] 2019-Pres [phone] [address] [place] [address] [facility] [id number] Care Teams Lining Machine Tender Relationship Specialty Start Date End Date Devonte Young MD PCP - General 01/11/17 [address] [place] [address]
--- OUTSIDE RECORDS SUMMARY | 2022-04-22 01:00 | XMS_ITS | Encounter Summary ---
:1960 Author Organization [facility] Address [address] [place] [address] Care Team Providers Name Role Phone Unavailable Primary Care Provider Unavailable Encounter Details Date Type Department Care Team Description 09/25/2002 Results Only [facility] - Lisa Peñaloza NP conversion [address] [place] [address] Social History Tobacco Use Types Packs/Day Years Used Date Never Assessed Sex Assigned at Date Recorded Not on file documented as of this encounter Plan of Treatment Not on filedocumented as of this encounter Procedures Procedure Name Priority Date/Time Associated Diagnosis Comme nts CYTOPATHOLOGY Routine 09/25/2002 0:00 EST Results for this procedure are i n the results section . documented in this encounter Results CYTOPATHOLOGY (09/25/2002 0:00 EST) Pathology Report: CYTOPATHOLOGY REPORT [facility] Reports generated via electronic interface contain manuel ginal data; however they are lacking the format of the original re port. Caution should be taken when reading/interpreting unfo rmatted reports. Name: ? TANO CONTRERAS ? Accession #: ? [id number] : ? 1960 (Age: 42) ??F ?Collect Date: ? 09/14 Location: ? [facility] ? Receive Date : ? 09/26/2002 Provider: ?LISA NEGRON FREELANCE INTERPRETER/TRANSLATOR Copy to: ? Specimen/Source: ?ThinPrep Pap Test, Cervix/ Endocervix Last Menstrual Period: ? 09/16/02 ? SPECIMEN ADEQUACY ? Satisfactory for Evaluation - transformation zone component present - scant squamous epithelial component secondary to exc essive blood GENERAL CATEGORIZATION ? Negative for Intraepithelial Lesion or Malignan cy ? Document reviewed and electronically signed by: ? Analia Travis, EWELINA(ASCP) ? Report Date: ??09/30/2002 10:50 End of Report Specimen Performing Organization Address City/State/ZIP Code Phon e Number [facility] [address] [place] [address] SERVICES [facility] [address] [place] [address] documented in this encounter Visit Diagnoses Not on filedocumented in this encounter
--- NOTE | 2022-04-22 08:15 | DI.US_ITS ---
Exam(s) US ABDOMEN LIMITED EXAM: US ABDOMEN LIMITED CLINICAL HISTORY: LIVER STEATOSIS, K76.0 TECHNIQUE: Ultrasound abdomen performed using standard protocol. COMPARISON: US US ABDOMEN from 10/12/2021 FINDINGS: There is no ascites evident. LIVER: Liver appears hyperechoic indicating steatosis. There are no discrete focal hepatic lesions i dentified. GALLBLADDER/BILIARY: Gallbladder surgically absent. The common hepatic duct ismildly dilated, measuring 7mm at the level of maureen hepatis. PANCREAS: There is no evidence of pancreatic mass nor dilatation of the pancreatic duct. RIGHT KIDNEY:No evidence of solid mass, calculus, nor hydronephrosis. No cortical cysts evident. IMPRESSION: 1. Gallbladder surgically absent. Common hepatic duct measures 7 millimeters which is most probably commensurate with this patient's age and post cholecystectomy status. 2. Hepatic steatosis. Correlation with appropriate hepatic blood work is recommended. 3. No other significant right upper quadrant ultrasound findings and there is no ascites. DATA REPOSITORY:
== END ==
PROVIDERS: PCP Nurse Practitioner Family; Visit Provider Nurse Practitioner Family
DX: K76.0 Fatty (change of) liver, not elsewhere classified (principal)
CPT/HCPCS: 76705

== ENCOUNTER 2022-11-24 01:43 | Outpatient (CLI) | payer MEDICAID, SELFPAY ==
--- NOTE | 2022-11-24 | DI.US_ITS ---
Exam(s) US BREAST LT COMPLETE MG MAMMO DIAGNOSTIC BI EXAM: MG MAMMO DIAGNOSTIC BI AND COMPLETE LEFT BREAST ULTRASOUND CLINICAL HISTORY: BREAST TENDERNESS, N64.4; FAMILY H/O BREAST CA, Z80.3. TECHNIQUE: Both CC and MLO mammographic images both breasts were obtained with 3D tomosynthesis tech angelcamque and utilizing computer aided detection (CAD). Complete left breast ultrasound was performed including all 4 quadrants as well as the axilla. COMPARISON: Prior mammograms were reviewed. FINDINGS: DIAGNOSTIC BILATERAL MAMMOGRAM: There has been no significant change appearance and distribution of the fibroglandular tissue, which is mostly fatty. There are no new spiculated masses nor malignant-appearing microcalcification groups in either breast . No new architectural distortion or skin thickening-traction. COMPLETE LEFT BREAST ULTRASOUND: There is no evidence of solid or significant cystic lesions in all 4 quadrants Scanning of the left axilla is negative for adenopathy. IMPRESSION: 1. No radiographic evidence of malignancy in either breast. 2. Negative complete left breast ultrasound. The patient was informed of the findings and follow-up recommendations by myself prior to leaving the department today. BI-RADS Category 1 - Negative Breast Density - Category A - Almost entirely fatty Breast density Category C or D implies that the patient has dense breast tissue. Dense breast tissue can make it harder to find cancer on a mammogram. Dense breast tissue is also associated with an incr eased risk of breast cancer. This information about the result of the mammogram report was provided to the patient to raise their awareness. Use this report when you speak with the patient about their risks for breast cancer, which includes their family history. At that time, you may recommend additional screening tests (Ultrasoun d or MRI) as these tests may add significant information. A negative radiographic report should not delay biopsy if a dominant or clinically suspicious mass is present. Up to ten percent of cancers are not identified on mammography. A negative report may reinforce clinical impression. Adenosis and dense breasts may obscure an underlying neoplasm. False positive reports average 6 to 10%. Patient will receive a letter notifying them of these results.
== END 2022-11-24 02:03 ==
LOC: DI 01:43
PROVIDERS: PCP Nurse Practitioner Family; Visit Provider Nurse Practitioner Family
DX: Z12.31 Encounter for screening mammogram for malignant neoplasm of breast (principal); Z80.3 Family history of malignant neoplasm of breast; N64.4 Mastodynia
CPT/HCPCS: 76642; 77062; 77066; G0279

== ENCOUNTER 2023-02-24 19:12 | Outpatient (REF) | payer MEDICAID, SELFPAY ==
[2023-02-24 21:04] LABS: Abs Immature Grans 0.04 10^3/uL (0.0-0.06); Absolute Basophil Count 0.06 10^3/uL (0.0-0.2); Absolute Eosinophil Count 0.24 10^3/uL (0.0-0.7); Absolute Lymphocyte Count 2.13 10^3/uL (1.2-3.4); Absolute Monocyte Count 0.53 10^3/uL (0.1-0.8); Absolute Neutrophil Count 6.14 10^3/uL (1.2-6.7); Basophils % 0.7; Eosinophils % 2.6; HCT 42.7 % (36.0-46.0); HGB 13.8 g/dL (11.2-15.7); Immature Grans % 0.4; Lymphocytes % 23.3; MCH 28.5 pg (27.0-33.0); MCHC 32.3 % (32.0-36.0); MCV 88 fL (80-95); Monocytes % 5.8; Neutrophils % 67.2; Platelet Count 199 10^3/uL (130-400); RBC 4.84 10^6/uL (3.93-5.22); RDW-SD 42.3 fL; WBC 9.14 10^3/uL (4.4-10.8)
[2023-02-24 21:19] LABS: ALT 22 U/L (14-59); AST 14 U/L (15-37); Alkaline Phosphatase 123 U/L (46-116); Anion Gap 7.3 mmol/L (3-11); BUN 19 mg/dL (7-18); Bilirubin, Total 0.5 mg/dL (0.2-1.0); CO2 33.7 mmol/L (21.0-32.0); Calcium 9.6 mg/dL (8.5-10.1); Chloride 99 mmol/L (98-107); Estimated GFR 62.91 (mL/min/1.73m2); GGT 27 U/L (5-55); Glucose 126 mg/dL (74-106); Potassium 4.2 mmol/L (3.5-5.1); Sodium 140 mmol/L (136-145); Total Protein 7.3 g/dL (6.4-8.2)
[2023-02-24 21:38] LABS: Vitamin D 25 Total 23.4 ng/mL (30-100)
[2023-02-24 23:23] LABS: Vitamin B12 440 pg/mL (193-986)
== END 2023-02-24 19:13 | disposition home or self-care (01) ==
LOC: NCHCN 19:12
PROVIDERS: PCP Nurse Practitioner Family; Visit Provider Nurse Practitioner Family
DX: K76.0 Fatty (change of) liver, not elsewhere classified (principal); R74.8 Abnormal levels of other serum enzymes; E55.9 Vitamin D deficiency, unspecified; R79.89 Other specified abnormal findings of blood chemistry; E53.8 Deficiency of other specified B group vitamins; I10 Essential (primary) hypertension; E11.9 Type 2 diabetes mellitus without complications
CPT/HCPCS: 80053; 82306; 82607; 82977; 83735; 85025

== ENCOUNTER → 2023-08-01 02:58 | Outpatient (CLI) | payer MEDICARE, MEDICAID, SELFPAY ==
--- NOTE | 2023-08-01 09:30 | DI.US_ITS ---
APPROVED REPORT EXAM: Comprehensive 2D, Doppler, and color-flow Echocardiogram Patient Location: Out-Patient [facility] Supervisor: Ethan Arizmendi RDCS (AE) Indications: pulmonary HTN, tricuspid regurgitaiton Conclusion 1. Normal chamber sizes. 2. Normal LV function,EF 60-65%. Grade 1 diastolic dysfunction. Normal RV function. 3. Anatomically normal valves. Mild TR, no phtn. 4. No intracardiac shunt. 5. No pericardial effusion. Wall motion Left Ventricle The left ventricle is normal size. The left ventricular systolic function is normal. The left ventric ular ejection fraction is within the normal range. There is normal left ventricular wall thickness. T here is normal LV segmental wall motion. There is no ventricular septal defect visualized. LVEF is 55 %. Right Ventricle The right ventricle is normal size. Right ventricular systolic function is normal. Atria The left atrium size is normal. The right atrium size is normal. The interatrial septum is intact wit h no evidence for an atrial septal defect. Aortic Valve The aortic valve is normal in structure. There is no aortic valvular stenosis. Mitral Valve The mitral valve is normal in structure. No evidence of mitral valve stenosis. Trace mitral regurgita tion. Tricuspid Valve The tricuspid valve is normal in structure. There is no tricuspid valve stenosis. Trace tricuspid reg urgitation. Unable to assess PA pressure. Pulmonic Valve The pulmonary valve is normal in structure. There is no pulmonic valvular stenosis. Trace pulmonic re gurgitation. Great Vessels The aortic root is normal in size. The ascending aorta is normal in size. Aortic arch is normal in ca liber. IVC is normal in size and collapses >50% with inspiration. Pericardium There is no pericardial effusion. 2D Dimensions IVSD d PLAX 0.65 cm F: 0.6-1.0 Ao Root d 2.96 cm F: 2.7 - 3.3 LVPW d PLAX 0.69 cm F: 0.6 - 1.0 Ao Asc Diam d 3.17 cm F: 2.3 - 3.1 LVID d PLAX 5.03 cm F: 3.8 - 5.2 LVDs 3.56 cm F: 2.2 - 3.5 LV EF Teichholz 55.8 % FS 29.22 % LV EDV (Teich) 119.9 mL LV ESV (Teich) 53.0 mL Stroke Vol Index (Teich) 32.80 M-Mode TAPSE 1.70 cm (M/F) >1.7 Auto EF LV EDV A4C 107.6 mL LV EDV A2C 104.4 mL LV EDV BP 103.6 mL LV ESV A4C 47.2 mL LV ESV A2C 47.3 mL LV ESV BP 47.4 mL LVEF(%) A4C 56.1 % LVEF(%) A2C 54.7 % LVEF(%) BP 54.3 % LV SV A4C 60.4 ml LV SV A2C 57.1 ml LV SV BP 56.2 ml LV CO A4C 4.5 L/min LV CO A2C 4.4 L/min LV CO BP 4.4 L/min HR A4C 74.23 BPM HR A2C 76.92 BPM LV EDV Index (BP) LA Volume LA Length A4C 5.1 cm LA Length A2C 5.1 cm LA Area A4C s 12.54 cm2 LA Area A2C s 14.95 cm2 LA Vol A4C A-L 26.30 mL LA Vol A2C A-L 36.92 mL LA Vol Biplane A-L 31.4 mL LA Vol/BSA A4C A-L LA Vol/BSA A2C A-L LA Vol/BSA BP A-L 15.4 mL/m2 LA Vol A4C MOD 24.9 mL LA Vol A2C MOD 35.4 mL LA Vol BP MOD 29.4 mL RA Volume RA Area A4C 9.6 cm2 RA ESV A4C (A-L) 17.3mL RA Vol/BSA A4C A-L RA Length A4C 4.5 cm RA ESV A4C (MOD) 16.8mL LV Diastology MV E' medial 0.058 (>0.07 m/s) MV E Vmax 0.55 (0.4-1.3 m/s) MV E/E' MED 9.44 (<14) MV A Vmax 1.05 (0.4-1.3 m/s) MV E' lateral 0.084 (>0.1 m/s) E/A Ratio 0.5 MV E/E' LAT 6.53 (<14) MV E' Average 0.071 m/s MV E/E'(average) 7.72 Aortic Valve AoV Vmax 1.28 m/s LVOT Vmax 1.11 m/s AoV Peak Grad 6.5 mmHg LVOT Peak Grad 4.9 mmHg AoV Area (Vmax) 2.65 cm2 LVOT VTI 0.221 m AoV VTI 0.285 m LVOT Mean Grad 2.8 mmHg AoV Mean Franck. 0.87 m/s LVOT SV 67.07 mL AoV Mean Grad 3.5 mmHg LVOT Diam s 1.95 cm AoV Area (VTI) 2.36 cm2 Velocity Ratio 0.87 Pulmonary Valve PV Vmax 1.25 (0.5-1.5 m/s) RVOT Vmax 0.50 m/s PV Peak Grad 6.2 mmHg RVOT Peak Gr. 1.0 mmHg PV Mean Franck 0.91 m/s RVOT VTI 0.090 m PV Mean Grad 3.8 mmHg RVOT Mean Gr. 0.6 mmHg
== END ==
PROVIDERS: PCP Nurse Practitioner Family; Visit Provider Nurse Practitioner Family
DX: I27.20 Pulmonary hypertension, unspecified (principal); I10 Essential (primary) hypertension
CPT/HCPCS: 93306

== ENCOUNTER 2023-10-03 13:27 | Outpatient (REF) | payer MEDICARE, MEDICAID, SELFPAY ==
[2023-10-03 15:52] LABS: Hemoglobin A1C 7.2 % (<5.7)
== END 2023-10-03 13:28 | disposition home or self-care (01) ==
LOC: NCHCN 13:27
PROVIDERS: PCP Nurse Practitioner Family; Visit Provider Nurse Practitioner Family
DX: E11.9 Type 2 diabetes mellitus without complications (principal)
CPT/HCPCS: 83036

== ENCOUNTER → 2023-11-27 03:37 | Outpatient (CLI) | payer MEDICARE, MEDICAID, SELFPAY ==
--- NOTE | 2023-11-27 | DI.MAMMO_ITS ---
Exam(s) MAMMO SCREENING EXAM: MAMMO SCREENING CLINICAL HISTORY: SCREENING, FAMILY H/O BREAST CANCER, Z80.3 TECHNIQUE: Bilateral full field digital CC and MLO mammographic images were obtained with 3D tomosyn thesis and utilizing computer aided detection (CAD). COMPARISON: Available for comparison. FINDINGS: Masses/Architectural Distortion: None seen. Microcalcifications: No suspicious pleomorphic-type are seen. Skin Thickening/Nipple Retraction: None. IMPRESSION: 1. No significant interval change with no specific features of malignancy noted. 2. Unless there is more urgent need, screening mammography is recommended, as per [employer] guidelines. BI-RADS Category 1 - Negative Breast Density - Category A - Almost entirely fatty Breast density category C or D implies that the patient has dense breast tissue. Dense breast tissue is very common and is not abnormal but dense breast tissue can make it harder to find cancer on a ma mmogram. Also, dense breast tissue may increase their breast cancer risk. This information about the result of the mammogram report was provided to the patient to raise their awareness. Use this report when you speak with the patient about their risks for breast cancer, which includes their family hist ory. At that time, you may recommend for more screening tests (Ultrasound or MRI) as they might be us eful based on their risk. A negative radiographic report should not delay biopsy if a dominant or clinically suspicious mass is present. Up to ten percent of cancers are not identified on mammography. A negative report may reinforce clinical impression. Adenosis and dense breasts may obscure an underlying neoplasm. False positive reports average 6 to 10%. Patient will receive a letter notifying them of these results.
== END ==
PROVIDERS: PCP Nurse Practitioner Family; Visit Provider Nurse Practitioner Family
DX: R92.30 Dense breasts, unspecified (principal); Z80.3 Family history of malignant neoplasm of breast
CPT/HCPCS: 77063; 77067

== ENCOUNTER 2024-01-01 15:01 | Outpatient (REF) | payer MEDICARE, MEDICAID, SELFPAY ==
--- NOTE | 2024-01-01 14:00 | PAPFT_PTH ---
PATIENT: Amanda Contreras LOC: [facility]#:[id number] AGE/SX: 63/F ROOM: RE01/01/[address]: Shalonda Nicholas : 1960 BED: DIS: 01/01/2024 SPEC #: [id number] RECD: 01/02/24 12:56 STATUS: MICHAEL CHAUHAN #: [id number] GABY: 01/01/24 14:[address]: Shalonda Nicholas [facility] Cytology RECD BY: Evelin Chambers Tissues: 1 - CX/ENDOCX FOR PAP SMEARS Procedures: PAP THIN PREP/UVM Screening HPV DNA PROBE Comments: [id number]
[2024-01-01 21:34] LABS: Abs Immature Grans 0.02 10^3/uL (0.0-0.06); Absolute Basophil Count 0.05 10^3/uL (0.0-0.2); Absolute Eosinophil Count 0.27 10^3/uL (0.0-0.7); Absolute Lymphocyte Count 1.96 10^3/uL (1.2-3.4); Absolute Monocyte Count 0.42 10^3/uL (0.1-0.8); Absolute Neutrophil Count 4.24 10^3/uL (1.2-6.7); Basophils % 0.7 %; Eosinophils % 3.9 %; HCT 42.4 % (36.0-46.0); HGB 13.5 g/dL (11.2-15.7); Immature Grans % 0.3 %; Lymphocytes % 28.2 %; MCH 28.8 pg (27.0-33.0); MCHC 31.8 % (32.0-36.0); MCV 90 fL (80-95); MPV 12.6 fL (8.0-11.0); Neutrophils % 60.9 %; Platelet Count 205 10^3/uL (130-400); RBC 4.69 10^6/uL (3.93-5.22); RDW 13.3 % (11.7-14.6); WBC 6.96 10^3/uL (4.4-10.8)
[2024-01-01 22:17] LABS: ALT 25 U/L (14-59); AST 20 U/L (15-37); Albumin 3.8 g/dL (3.4-5.0); Alkaline Phosphatase 105 U/L (46-116); Anion Gap 6.7 mmol/L (3-11); BUN 16 mg/dL (7-18); Bilirubin, Total 0.3 mg/dL (0.2-1.0); CO2 31.3 mmol/L (21.0-32.0); CREATININE 0.9 mg/dL (0.55-1.02); Calculated LDL 125 mg/dL (<100); Chloride 102 mmol/L (98-107); Cholesterol 223 mg/dL (<200); Estimated GFR 70.95 (mL/min/1.73m2); Glucose 116 mg/dL (74-106); HDL Cholesterol 56 mg/dL (40-60); Magnesium 1.8 mg/dL (1.8-2.4); Potassium 3.6 mmol/L (3.5-5.1); Sodium 140 mmol/L (136-145); Total Protein 7.1 g/dL (6.4-8.2); Triglyceride 214 mg/dL (<150); Vitamin B12 379 pg/mL (193-986); Vitamin D 25 Total 28.6 ng/mL (30-100)
== END 2024-01-01 15:02 | disposition home or self-care (01) ==
LOC: NCHCN 15:01
PROVIDERS: PCP Nurse Practitioner Family; Visit Provider Nurse Practitioner Family
DX: Z13.6 Encounter for screening for cardiovascular disorders (principal); E55.9 Vitamin D deficiency, unspecified; I10 Essential (primary) hypertension; Z12.4 Encounter for screening for malignant neoplasm of cervix
CPT/HCPCS: 80053; 80061; 82306; 88142; 82607; 83735; 85025; 87624

== ENCOUNTER 2024-04-04 18:05 | Outpatient (REF) | payer MEDICARE, MEDICAID, SELFPAY ==
--- OUTSIDE RECORDS SUMMARY | 2024-04-04 18:08 | XMS_ITS | Encounter Summary ---
[place] [address] Care Team Providers Care Appliance Assembler Name Role Phone CristopherShalonda DENNISE Primary Care Provider [phone] Encounter Details Date Type Department Care Team (Late st Contact Info) Description 01/29/2015 Telephone [place] [id number] Arlette Corbin, RN Social History Tobacco Use Types Packs/Day Years Used Date Smoking Tobacco: Never Alcohol Use Standard Drinks/Week Comments No 0 (1 standard drink = 0.6 oz pur e alcohol) Sex and Gender Information Value Date Recorded Sex Assigned at Not on file Gender Identity Not on file Sexual Orientation Not on file documented as of this encounter Miscellaneous Notes * Telephone Encounter - Arlette Corbin LPN - 01/29/2015 2:28 PM EDT Pain Management Center Preauthorization Request Patient: Amanda Contreras [id number] Fax received from [facility] requesting we obtain prior authorization for Lyrica 75 mg prescribed by Analia Rubio APRN. RX insurance plan: [place] [employer] insurance telephone: [phone] Patient Diagnosis: Neuro pathic pain of lower extremity 355.8 and Left Leg pain 729.5 Previous medications attempted: gabapentin,Acetaminophen,Nsaids, Vicodin Faxed form waiting for a reply Arlette Corbin LPN documented in this encounter Plan of Treatment Not on file documented as of this encounter Visit Diagnoses Not on filedocumented in this encounter Care Teams Appliance Assembler Relationship Specialty Start Date End Date Shalonda Nicholas APRN [address] [place] [address] PCP - General 11/27/14 documented as of this encounter
--- OUTSIDE RECORDS SUMMARY | 2024-04-04 18:08 | XMS_ITS | Encounter Summary ---
Author Organization [facility] Address [facility] [place] [address] Care Team Providers Care Garment Fitter Name Role Phone Shalonda Nicholas DENNISE Primary Care Provider [phone] Encounter Details Date Type Department Care Team (Latest Contact Info) Description 01/26/2015 4:06 PM EDT - 01/26/2015 11:59 PM EDT Hospital Encounter XRay at [address] [place] [address] Left leg pain; Neuropathic pain of lower extremity, left Social History Tobacco Use Types Packs/Day Years [...] Start Date End Date atenolol (TENORMIN) 50 mg Tablet Take 25 mg by mouth daily. pregabalin (LYRICA) 75 mg Capsule Take 1 capsule by mouth 2 times daily for 30 days. 60 capsule 3 01/26/2015 02/25/2015 documented as of this encounter Plan of Treatment Not on file documented as of this encounter Procedures Procedure Name Priority Date/Time Associated Diagnosis Comments XR TIBIA FIBULA AP AND LATERAL Routine 01/26/2015 4:37 PM EDT Left leg pain Neuropathic pain of lower extremity, left documented in this encounter Results * XR tibia fibula AP & lateral (01/26/2015 4:37 PM EDT) Anatomical Region Laterality Modality N/A Radiographic Jo ging 01/26/2015 4:37 PM EDT Impressions 01/26/2015 4:52 PM EDT IMPRESSION: Limited exam, grossly no fracture or dislocation. Limited exam of the left knee and ankle. Question cortical irregularity distal left fibula; if ankle pain, recommend ankle series. Narrative 01/26/2015 4:52 PM EDT EXAMINATION: TIBIA and FIB AP and LAT/LEFT CLINICAL HISTORY: left leg pain; no trauma, looking for bone or joint pathology TECHNIQUE: Crosstable lateral and AP left lower leg; left knee is not included on lateral and limited view of left ankle COMPARISON: None FINDINGS: Grossly, no fracture or dislocation. Mild degenerative changes left knee. Mild soft tissue swelling posterior lateral lower leg. ??Possible cortical irregularity distal left fibula; if left ankle pain present, recommend ankle series. Procedure Note Shandra Aguilera MD - 01/26/2015 EXAMINATION: TIBIA and FIB AP and LAT/LEFT CLINICAL HISTORY: left leg pain; no trauma, looking for bone or jointpathology TECHNIQUE: Crosstable lateral and AP left lower leg; left knee is notincluded on lateral and limited view of left ankle COMPARISON: None FINDINGS: Grossly, no fracture or dislocation. Mild degenerative changes left knee.Mild soft tissue swelling posterior lateral lower leg. Possible cortical irregularity distal left fibula; if left ankle pain present, recommendankle series. IMPRESSION IMPRESSION: Limited exam, grossly no fracture or dislocation. Limited exam of the leftknee and ankle. Question cortical irregularity distal left fibula; if anklepain, recommend ankle series. Adam Prabhakar MD IMG DX ORDERABLES documented in this encounter Visit Diagnoses Diagnosis Left leg pain Pain in limb Neuropathic pain of lower extremity, left documented in this encounter Care Teams Garment Fitter Relationship Specialty Start Date End Date Shalonda Nicholas APRN [address] [place] [address] PCP - General 11/27/14 documented as of this encounter
--- OUTSIDE RECORDS SUMMARY | 2024-04-04 18:08 | XMS_ITS | Encounter Summary ---
[place] [address] Care Team Providers Care Biochemical Development Engineer Name Role Phone Shalonda Nicholas APRN Primary Care Provider [phone] Encounter Details Date Type Department Care Team (Late st Contact Info) Description 12/01/2014 Abstract [place] [address] Vaishali Gregorio RN Social History Tobacco Use Types Packs/Day Years Used Date Smoking Tobacco: Never Assessed Sex and Gender Information Value Date Recorded Sex Assigned at Not on file Gender Identity Not on file Sexual Orientation Not on file documented as of this encounter Plan of Treatment Not on file documented as of this encounter Visit Diagnoses Not on filedocumented in this encounter Care Teams Biochemical Development Engineer Relationship Specialty Start Date End Date Shalonda Nicholas APRN [address] [place] [address] PCP - General 11/27/14 documented as of this encounter
--- OUTSIDE RECORDS SUMMARY | 2024-04-04 18:08 | XMS_ITS | Encounter Summary ---
Author Organization [facility] Address [facility] [place] [address] Care Team Providers Care Lead Developer Name Role Phone Shalonda Nicholas APRN Primary Care Provider [phone] Reason for Visit * Reason Comments Varicose Veins Establish Care Encounter Details Date Type Department Care Team (Late st Contact Info) Description 12/26/2014 9:00 AM EDT Office Visit [place] [phone] Nancy Ruggiero MD [facility] [place] [address] Leg swelling Discharge Disposition: Home Social History Tobacco Use Types Packs/Day Years Used Date Smoking Tobacco: Never Sex and Gender Information Value Date Recorded Sex Assigned at Not on file Gender Identity Not on file Sexual Orientation Not on file documented as of this encounter Last Filed Vital Signs Vital Sign Reading Time Taken Comments Blood Pressure 156/104 12/26/2014 8:53 AM EDT l a rm Pulse 63 12/26/2014 8:53 AM EDT Temperature - - Respiratory Rate 20 12/26/2014 8:53 AM EDT Oxygen Saturation - - Inhaled Oxygen Concentration - - Weight 116.1 kg (256 lb) 12/26/2014 8:53 AM EDT Height 175.3 cm (5' 9) 12/26/2014 8:53 AM EDT Body Mass Index 37.8 12/26/2014 8:53 AM EDT documented in this encounter Patient Instructions * Patient Instructions* Nancy Ruggiero MD - 12/26/2014 9:31 AM EDT We discussed referral with neurology. Follow up with your primary care doctor documented in this encounter Progress Notes * Nancy Ruggiero MD - 12/26/2014 9:24 AM EDT Presents for evaluation of painful left leg as requested by Dr. Nicholas Mrs. Contreras states that she had sudden onset of left leg pain after restarting bowling. She notes that her entire leg aches, like a toothache. She also notes that he leg also has swelling, of the entire leg which was painful. She notes that her leg is quite sensitive to even light touch. She deniesany prior leg pain. She denies any prior pain due to her varicose veins. She notes that otherwise she is healthy. Review of Systems Constitutional: Negative. HENT: Negative. Eyes: Negative. Respiratory: Negative. Cardiovascular: Negative. Gastrointestinal: Negative. Genitourinary: Negative. Musculoskeletal: Negative. Skin: Negative. Neurological: Negative. Physical Exam Constitutional: She appears well-developed and well-nourished. HENT: Head: Normocephalic and atraumatic. Eyes: EOM are normal. Pupils are equal, round, and reactive to light. Neck: Normal range of motion. Neck supple. Cardiovascular: Normal rate and regular rhythm. Pulses: Carotid pulses are 2+ on the right side, and 2+ on the left side. Radial pulses are 2+ on the right side, and 2+ on the left side. Femoral pulses are 2+ on the right side, and 2+ on the left side. Popliteal pulses are 2 on the right side, and 2+ on the left side. Dorsalis pedis pulses are 2 on the right side, and 2+ on the left side. Posterior tibial pulses are 2 on the right side, and 2+ on the left side. Pulmonary/Chest: Effort normal and breath sounds normal. Abdominal: Soft. Bowel sounds are normal. Musculoskeletal: Normal range of motion. Right leg with 4-5 mm varicosities nontender to palpation; left leg with only one area of varicosities 4-5 posterior calf, no palp cord, entire leg hypersensitive No DVT noted on formal duplex today A/P: No evidence of arterial disease, no DVT noted on duplex. Unclear etiology for her leg pain, however I doubt that this is venous in origin. Recommend neurological evaluation. All questions answered. documented in this encounter Plan of Treatment Not on file documented as of this encounter Results * Duplex for DVT, Leg, Unilat (12/26/2014 9:08 AM EDT) VB Text Report Department: Vascular Surgery Lab Patient: [id number] (TANO CONTRERAS) CPT Code: 66052 ICD-9: Referring Physician: NANCY RUGGIERO Indication: ? L leg pain and swelling. LEFT: Patent common femoral vein and popliteal vein with spontaneous, respirophasic Doppler waveforms that respond normally to augmentation maneuvers. The common femoral vein, saphenofemoral junction, femoral vein through the thigh and popliteal vein are fully compressible. Patent posterior tibial and peroneal veins with no evidence of thrombus. Interpretation: LEFT: ??No evidence of lower extremity deep venous thrombosis. Comparison: ??No previous study in our vascular lab database for comparison. Electronically Signed by: LEE CLEMONS on 2014-12-30 11:51:19 PM [facility] VB Text Report End of Report [facility] 12/26/2014 9:08 AM EDT Nancy Ruggiero MD VASCULAR ORDERABLES [facility] documented in this encounter Visit Diagnoses Diagnosis Leg swelling Swelling of limb documented in this encounter Care Teams Lead Developer Relationship Specialty Start Date End Date Shalonda Nicholas, DENNISE [address] [place] [address] PCP - General 11/27/14 documented as of this encounter
--- OUTSIDE RECORDS SUMMARY | 2024-04-04 18:08 | XMS_ITS | Encounter Summary ---
Author Organization [facility] Address [address] [place] [address] Care Team Providers Care Chemical Packager Name Role Phone Unknown, Provider Primary Care Provider [phone] Encounter Details Date Type Department Care Team (Late st Contact Info) Description 01/10/2017 Results Only [facility] [phone] Flakito Blood MD [address] [place] [address] [place], [place] [id number] Social History Tobacco Use Types Packs/Day Years Used Date Smoking Tobacco: Never Assessed Sex and Gender Information Value Date Recorded Sex Assigned at Not on file Gender Identity Not on file Sexual Orientation Not on file documented as of this encounter Plan of Treatment Not on file documented as of this encounter Procedures Procedure Name Priority Date/Time Associated Diagnosis Comments SURGICAL PATHOLOGY Routine 01/10/2017 19 :30 EDT documented in this encounter Results * SURGICAL PATHOLOGY (01/10/2017 19:30 EDT) Pathology Report: SURGICAL PATHOLOGY REPORT Reports generated via electronic interface contain original data; however they are lacking the format of the original report. Caution should be taken when reading/interpret ing unformatted reports. Name: ? TANO CONTRERAS ? Accession #: ? [id number] ? : ? 1960 (Age: 56) ??F ? Collect Date: ? 01/10/2017 ? Location: ? [facility] ? Receive Date: ? 01/10/2017 ? Provider: FLAKITO BLOOD MD Copy to: ? Final Pathologic Diagnosis: STOMACH, ANTRUM, BIOPSY: - Gastric mucosa with reactive (chemical) gastropathy. - No Helicobacter pylori-like organisms identified on H&E stained sections. Document reviewed and electronically signed by: TINO STOCK MD Report ??Date: 01/12/2017 17:52 By the signature above, the attending physician certifies that he/she has personally conducted a gross and/or microscopic examination of the described specimens and rendered or confirmed the above diagnosis. Specimen(s) Received: Antral bx Clinical History: Dyspepsia Gross Description: ? Received in formalin labelled with proper patient identification (initials P, R) and bx antral are two pink-saravia tissues (0.2 with 0.2 x 0.2 cm and 0.5 x 0.2 x 0.2 cm). Entirely submitted in 1. LISA Powers (ASCP) 01/11/2017 7:39 AM End of Report [facility] 01/10/2017 19:3 0 EDT 01/10/2017 19:30 EDT Flakito Blood MD PATHOLOGY ORDERA BLES [facility] [address] [place] [address] documented in this encounter Visit Diagnoses Not on filedocumented in this encounter Care Teams Chemical Packager Relationship Specialty Start Date End Date Unknown, Provider, PCP - General 05/23/15 01/10/17 documented as of this encounter
--- OUTSIDE RECORDS SUMMARY | 2024-04-04 18:08 | XMS_ITS | Encounter Summary ---
Author Organization [facility] Address [address] [place] [address] Care Team Providers Care Catering Operations Manager Name Role Phone Unavailable Primary Care Provider Unavailabl e Encounter Details Date Type Department Care Team (Late st Contact Info) Description 09/29/2003 Results Only [facility] [place] conversion [address] [place] [address] Lisa De Paz, PRODUCT MANAGER E [employer] Social History Tobacco Use Types Packs/Day Years Used Date Smoking Tobacco: Never Assessed Sex and Gender Information Value Date Recorded Sex Assigned at Not on file Gender Identity Not on file Sexual Orientation Not on file documented as of this encounter Plan of Treatment Not on file documented as of this encounter Procedures Procedure Name Priority Date/Time Associated Diagnosis Comments CYTOPATHOLOGY Routine 09/29/2003 0:00 EST documented in this encounter Results * CYTOPATHOLOGY (09/29/2003 0:00 EST) Pathology Report: CYTOPATHOLOGY REPORT Reports generated via electronic interface contain original data; however they are lacking the format of the original report. Caution should be taken when reading/interpreti ng unformatted reports. Name: ? TANO CONTRERAS ? Accession #: ? [id number] : ? 1960 (Age: 43) ??F ?Collect Date: ? 09/29/2003 Location: ? [facility] ? Receive Date: ? 09/30/2003 Provider: ?LISA DE PAZ NP Copy to: ? Specimen/Source: ?ThinPrep Pap Test, Cervix/Endocervix Last Menstrual Period: ? 09/24/2003 ? SPECIMEN ADEQUACY ? Satisfactory for Evaluation - transformation zone component present GENERAL CATEGORIZATION ? Other, see interpretation INTERPRETATION ? Reactive cellular changes associated with inflammation present (includes repair). Endometrial cells present in a woman equal to or greater than age 40. Negative for Intraepithelial Lesion or Malignancy. ? COMMENT ? Benign appearing endometrial cells on Pap tests are usually a normal finding in women with regular menstrual cycles, especially if the Pap was collected during the first half of the menstrual cycle. ??There is data showing that endometrial cells on Pap tests may be associated with endometrial/uterin e abnormalities in post menopausal women or in premenopausal women with abnormal bleeding. ??There is limited data on the significance of benign endometrial cells in post menopausal women on HRT. ??Clinical correlation is recommended. Note: ?? The Pap test is not an accurate test for the screening of endometrial lesions and should not be used as a follow up in patients with clinical suspicion of endometrial pathology. ? Document reviewed and electronically signed by: ? Qamar Jalloh MD ? Report Date: ??10/06/2003 14:49 End of Report [facility] 09/29/2003 09/30/2003 Lisa De Paz NP PATHOLOGY ORDERABLES [facility] [address] [place] [address] documented in this encounter Visit Diagnoses Not on filedocumented in this encounter
--- OUTSIDE RECORDS SUMMARY | 2024-04-04 18:08 | XMS_ITS | Encounter Summary ---
Author Organization [facility] Address [address] [place] [address] Care Team Providers Care Air Pollution Auditor Name Role Phone Unavailable Primary Care Provider Unavailabl e Encounter Details Date Type Department Care Team (Late st Contact Info) Description 07/01/2013 Results Only [facility] [phone] Jonah Alaniz, PHYSICIANS ASSISTANT [address] [place] [phone] Social History Tobacco Use Types Packs/Day Years Used Date Smoking Tobacco: Never Assessed Sex and Gender Information Value Date Recorded Sex Assigned at Not on file Gender Identity Not on file Sexual Orientation Not on file documented as of this encounter Plan of Treatment Not on file documented as of this encounter Procedures Procedure Name Priority Date/Time Associated Diagnosis Comments PAP TEST- RESULT ONLY Routine 07/01/2013 0:00 EST documented in this encounter Results * PAP TEST- RESULT ONLY (07/01/2013 0:00 EST) Pathology Report: CYTOPATHOLOGY REPORT Reports generated via electronic interface contain original data; however they are lacking the format of the original report. Caution should be taken when reading/interpreti ng unformatted reports. Name: ? TANO CONTRERAS ? Accession #: ? [id number] ? : ? 1960 (Age: 52) ??F ?Collect Date: ? 07/01/2013 ? Location: ? [facility] ? Receive Date: ? 07/02/2013 ? Provider: JONAH ALANIZ APRN Copy to: ? Final Report SPECIMEN ADEQUACY ? Satisfactory for Evaluation - transformation zone component present GENERAL CATEGORIZATION ? Negative for Intraepithelial Lesion or Malignancy ?? Last Menstrual Period: 06/11/13 Specimen/Source: ??Pap Test, Endocervix, ThinPrep Imaging System with manual evaluation Document reviewed and electronically signed by: ? OVIDIO Silverman(ASCP) ? Report ??Date: 07/03/2013 15:49 HPV with Pap Test ? Date Ordered: ? 07/03/2013 ? Status: ?? Signed Out ?Date Complete: ? 07/05/2013 ? By: ??System Interface ? Date Reported: ? 07/05/2013 ? Interpretation RESULT: Negative for HPV. No E6 or E7 mRNA is detected from HPV types 16,18,31,33,35, 39,45,51,52,56,58, 59,66, and 68 by glove factory sewer mediated amplification. Comments Document reviewed and electronically signed by: ? System Interface ? Report date: 07/05/2013 By the signature above, the attending physician certifies that he/she has personally conducted a gross and/or microscopic examination of the described specimens and rendered or confirmed the above diagnosis. End of Report [facility] 07/01/2013 07/02/2013 Jonah Alaniz PHYSICIANS ASSISTANT PATHOLOGY ORDERAB LES [facility] [address] [place] [address] documented in this encounter Visit Diagnoses Not on filedocumented in this encounter
--- OUTSIDE RECORDS SUMMARY | 2024-04-04 18:08 | XMS_ITS | Encounter Summary ---
Author Organization [facility] Address [facility] [place] [address] Care Team Providers Care Regional Sales Consultant Name Role Phone Shalodna Nicholas DENNISE Primary Care Provider [phone] Encounter Details Date Type Department Care Team (Latest Contact Info) Description 01/26/2015 4:06 PM EDT - 01/26/2015 11:59 PM EDT Hospital Encounter XRay at [address] [place] [address] Left leg pain; Neuropathic pain of lower [...] Name Priority Date/Time Associated Diagnosis Comments XR FEMUR 2 VIEW Routine 01/26/2015 4:37 PM EDT Left leg pain Neuropathic pain of lower extremity, left documented in this encounter Results * XR femur 2 view (01/26/2015 4:37 PM EDT) Anatomical Region Laterality Modality Thigh N/A Radiographic Jo ging 01/26/2015 4:37 PM EDT Impressions 01/26/2015 5:16 PM EDT IMPRESSION: Limited exam. Mild degenerative changes left hip and knee No fracture or dislocation. Narrative 01/26/2015 5:16 PM EDT EXAMINATION: DIAG FEMUR 2 VIEWS/LEFT CLINICAL HISTORY: worsening left leg pain ??no trauma TECHNIQUE: AP and crosstable lateral left femur COMPARISON: None FINDINGS: Grossly, no fracture or dislocation identified. Soft tissue calcification adjacent to the greater trochanter consistent with trochanteric bursitis. Mild degenerative changes of the left knee. Possible small joint effusion left knee. Procedure Note Shandra Aguilera MD - 01/26/2015 EXAMINATION: DIAG FEMUR 2 VIEWS/LEFT CLINICAL HISTORY: worsening left leg pain no trauma TECHNIQUE: AP and crosstable lateral left femur COMPARISON: None FINDINGS: Grossly, no fracture or dislocation identified. Soft tissuecalcification adjacent to the greater trochanter consistent with trochanteric bursitis.Mild degenerative changes of the left knee. Possible small joint effusion leftknee. IMPRESSION IMPRESSION: Limited exam. Mild degenerative changes left hip and knee No fracture or dislocation. Adam Prabhakar MD IMG DX ORDERABLES documented in this encounter Visit Diagnoses Diagnosis Left leg pain Pain in limb Neuropathic pain of lower extremity, left documented in this encounter Care Teams Regional Sales Consultant Relationship Specialty Start Date End Date Shalonda Nicholas APRN [address] [place] [address] PCP - General 11/27/14 documented as of this encounter
--- OUTSIDE RECORDS SUMMARY | 2024-04-04 18:08 | XMS_ITS | Encounter Summary ---
Author Organization [facility] [place] [address] Care Team Providers Care Mail Superintendent Name Role Phone Shalonda Nicholas APRN Primary Care Provider [phone] Encounter Details Date Type Department Care Team (Late st Contact Info) Description 12/26/2014 9:00 AM EDT Ancillary Appointment [place] [address] [place] Leg swelling Social History Tobacco Use Types Packs/Day Years Used Date Smoking Tobacco: Never Sex and Gender Information Value Date Recorded Sex Assigned at Not on file Gender Identity Not on file Sexual Orientation Not on file documented as of this encounter Plan of Treatment Not on file documented as of this encounter Procedures Procedure Name Priority Date/Time Associated Diagnosis Comments DUPLEX FOR DVT, LEG, UNILAT Routine 12/26/2014 9:08 AM EDT Leg swelling documented in this encounter Results * Duplex for DVT, Leg, Unilat (12/26/2014 9:08 AM EDT) VB Text Report Department: Vascular Surgery Lab Patient: [id number] (TANO CONTRERAS) CPT Code: 99403 ICD-9: Referring Physician: NANCY RUGGIERO Indication: ? [...] limb documented in this encounter Care Teams Mail Superintendent Relationship Specialty Start Date End Date Shalonda Nicholas APRN [address] [place] [address] PCP - General 11/27/14 documented as of this encounter
--- OUTSIDE RECORDS SUMMARY | 2024-04-04 18:08 | XMS_ITS | Encounter Summary ---
Author Organization [facility] Address [address] [place] [address] Care Team Providers Care Customer Service Dispatcher Name Role Phone Unavailable Primary Care Provider Unavailabl e Encounter Details Date Type Department Care Team (Late st Contact Info) Description 11/11/2010 Results Only [facility] Laboratory Services - [facility] ([facility] [address], [place] [id number] Arturo Sheppard ARNP [address] [place] [address] Social History Tobacco Use Types Packs/Day Years [...] Diagnosis Comments PAP TEST- RESULT ONLY Routine 11/11/2010 0:00 EDT documented in this encounter Results * PAP TEST- RESULT ONLY (11/11/2010 0:00 EDT) Pathology Report: CYTOPATHOLOGY REPORT ? Reports generated via electronic interface contain original data; ? however they are lacking the format of the original report. ? Caution should be taken when reading/interpreti ng unformatted reports. ? Name: ? TANO CONTRERAS ? Accession #: ? [id number] ? : ? 1960 (Age: 50) ??F ?Collect Date: ? 11/11/2010 ? Location: ? [facility] ? Receive Date: ? 11/15/2010 ? Provider: ?ARTURO CHAU ? Copy to: ? Specimen/Source: ?Pap Test, Cervix/Endocervix, ThinPrep Imaging System ? with manual evaluation ? Last Menstrual Period: ? 4/10/11 ? SPECIMEN ADEQUACY ? Satisfactory for Evaluation ? - transformation zone component present ? GENERAL CATEGORIZATION ? Negative for Intraepithelial Lesion or Malignancy ? Document reviewed and electronically signed by: ? Gloria Verville,CT(ASCP) ? Report Date: ??11/17/2010 12:09 ? End of Report ? [facility] 11/11/2010 11/15/2010 Arturo CHAU PATHOLOGY ORDERAB LES [facility] [address] [place] [address] documented in this encounter Visit Diagnoses Not on filedocumented in this encounter
--- OUTSIDE RECORDS SUMMARY | 2024-04-04 18:08 | XMS_ITS | Clinical Summary ---
Author Organization [facility] Address [address] [place] [address] Care Team Providers Care Marine Cargo Specialist Name Role Phone Devonte Young MD Primary Care Provider [phone] Social History Tobacco Use Types Packs/Day Years Used Date Smoking Tobacco: Never Assessed Interpersonal Safety Answer Date Record ed Physically Hurt Never 02/16/2020 Verbally Threaten Not on file 02/16/2020 Sex and Gender Information Value Date Recorded Sex Assigned at Not on file Gender Identity Not on file Sexual Orientation Not on file Plan of Treatment Health Maintenance Due Date Last Done Comments Hepatitis C Screen 1960 RSV Immunization ( o r 60+ Years) (1 - 1-dose 60+ series) 2018 COVID-19 Vaccine (2022-24 season) 2023 Fall Risk Screening 2023 Care Teams Marine Cargo Specialist Relationship Specialty Start Date End Date Devonte Young MD [address] [place] [address] PCP - General 01/11/17
--- OUTSIDE RECORDS SUMMARY | 2024-04-04 18:08 | XMS_ITS | Encounter Summary ---
Author Organization [facility] Address [address] [place] [address] Care Team Providers Care It Security Administrator Name Role Phone Unavailable Primary Care Provider Unavailabl e Encounter Details Date Type Department Care Team (Late st Contact Info) Description 09/25/2002 Results Only [facility] [place] conversion [address] [place] [address] Lisa De Paz, INSTRUMENT MECHANIC WEAPONS SYSTEM Social History Tobacco Use Types Packs/Day Years Used Date Smoking Tobacco: Never Assessed Sex and Gender Information Value Date Recorded Sex Assigned at Not on file Gender Identity Not on file Sexual Orientation Not on file documented as of this encounter Plan of Treatment Not on file documented as of this encounter Procedures Procedure Name Priority Date/Time Associated Diagnosis Comments CYTOPATHOLOGY Routine 09/25/2002 0:00 EST documented in this encounter Results * CYTOPATHOLOGY (09/25/2002 0:00 EST) Pathology Report: CYTOPATHOLOGY REPORT Reports generated via electronic interface contain original data; however they are lacking the format of the original report. Caution should be taken when reading/interpreti ng unformatted reports. Name: ? TANO CONTRERAS ? Accession #: ? [id number] : ? 1960 (Age: 42) ??F ?Collect Date: ? 09/25/2002 Location: ? [facility] ? Receive Date: ? 09/26/2002 Provider: ?LISA DE PAZ INSTRUMENT MECHANIC WEAPONS SYSTEM Copy to: ? Specimen/Source: ?ThinPrep Pap Test, Cervix/Endocervix Last Menstrual Period: ? 09/16/02 ? SPECIMEN ADEQUACY ? Satisfactory for Evaluation - transformation zone component present - scant squamous epithelial component secondary to excessive blood GENERAL CATEGORIZATION ? Negative for Intraepithelial Lesion or Malignancy ? Document reviewed and electronically signed by: ? Analia Travis, SCT(ASCP) ? Report Date: ??09/30/2002 10:50 End of Report [facility] 09/25/2002 09/26/2002 Lisa De Paz NP PATHOLOGY ORDERABLES [facility] [address] [place] [address] documented in this encounter Visit Diagnoses Not on filedocumented in this encounter
--- OUTSIDE RECORDS SUMMARY | 2024-04-04 18:08 | XMS_ITS | Referral Summary ---
Author Organization [facility] Address [address] [place] [address] Care Team Providers Care Machine Molder Name Role Phone Devonte Young MD Primary Care Provider [phone] Social History Tobacco Use Types Packs/Day Years Used Date Smoking Tobacco: Never Assessed Interpersonal Safety Answer Date Record ed Physically Hurt Never 02/16/2020 Verbally Threaten Not on file 02/16/2020 Sex and Gender Information Value Date Recorded Sex Assigned at Not on file Gender Identity Not on file Sexual Orientation Not on file Plan of Treatment Not on file Care Teams Machine Molder Relationship Specialty Start Date End Date Devonte Young MD [address] [place] [address] PCP - General 01/11/17
--- OUTSIDE RECORDS SUMMARY | 2024-04-04 18:08 | XMS_ITS | Encounter Summary ---
Author Organization [facility] Address [address] [place] [address] Care Team Providers Care Administrative Secretary Name Role Phone Devonte Young MD Primary Care Provider [phone] Encounter Details Date Type Department Care Team (Late st Contact Info) Description 11/26/2020 Lab Requisition [facility] Pathology & Laboratory Medicine - [facility] [address] [place] [address] Dimitrios Patel MD [address] [place] [address] [address] [place], [place] [id number] Encounter for other general examination Social History Tobacco Use Types Packs/Day Years [...] Priority Date/Time Associated Diagnosis Comments SURGICAL PATHOLOGY Today 11/25/2020 12 :25 EDT Encounter for other general examination documented in this encounter Results * SURGICAL PATHOLOGY (11/25/2020 12:25 EDT) Final Diagnosis A. GALLBLADDER, CHOLECYSTECTOMY: - Chronic cholecystitis with papillary cholesterolosis. - Cholelithiasis. 11/30/2020 17:44 EDT [facility] Attestation There was significant resident/fellow involvement in the diagnostic evaluation of this case. By the signature below, the attending physician certifies that they have personally conducted a gross and/or microscopic examination of the described specimens and rendered or confirmed the above diagnosis. 11/30/2020 17:44 EDT [facility] at 1744 Clinical History Biliary colic 11/30/2020 17:44 EDT [facility] Gross Description A. Received in formalin labelled with proper patient identification (initials P, R) and gallbladder is a focally disrupted gallbladder (6.1 x 2.5 x 0.6 cm). The cystic duct margin is inked. The serosa is pierce purple dull and hyperemic. The mucosa is bile stained green with yellow streaking and an average wall thickness of 0.2 cm. Within the cavity, is a single yellow ovoid gallstone (2.1 cm in greatest dimension). The cystic duct duct lumen appears patent. The cystic duct margin, en face, and 2 sales representative gas service sections are submitted in A1. LISA CHILEL(ASCP) 11/26/2020 9:17 11/30/2020 17:44 EDT [facility] Resident/Stewart w: Elvis Angela DO 11/30/2020 17:44 EDT [facility] Performing Lab [facility] 11/30/2020 17:44 EDT [facility] Scanned Images 11/30/2020 17:44 EDT [facility] Tissue ENTIRE GALLBLADDER / Unknown 11/25/2020 12:25 EDT 11/26/2020 7:32 EDT Dimitrios Patel MD PATHOLOGY ORDERA TEREZA [facility] [address] [place] [address] documented in this encounter Visit Diagnoses Diagnosis Encounter for other general examination documented in this encounter Care Teams Administrative Secretary Relationship Specialty Start Date End Date Devonte Young MD [address] [place] [address] PCP - General 01/11/17 documented as of this encounter
--- OUTSIDE RECORDS SUMMARY | 2024-04-04 18:08 | XMS_ITS | Encounter Summary ---
Author Organization [facility] Address [address] [place] [address] Care Team Providers Care Analysis Manager Name Role Phone Devonte Young MD Primary Care Provider [phone] Encounter Details Date Type Department Care Team (Late st Contact Info) Description 07/27/2018 Results Only [facility]- [facility] [phone] Ron Barton, MICROFILMING DOCUMENT PREPARER- [address] [place] [address] Social History Tobacco Use Types Packs/Day Years [...] Diagnosis Comments PAP TEST- RESULT ONLY Routine 07/27/2018 0:00 EST documented in this encounter Results * PAP TEST- RESULT ONLY (07/27/2018 0:00 EST) Pathology Report: CYTOPATHOLOGY REPORT Reports generated via electronic interface contain original data; however they are lacking the format of the original report. Caution should be taken when reading/interpreti ng unformatted reports. Name: ? TANO CONTRERAS ? Accession #: ? [id number] ? : ? 1960 (Age: 57) ??F ?Collect Date: ? 07/27/2018 ? Location: ? [facility] ? Receive Date: ? 07/30/2018 ? Provider: RON LILLY MICROFILMING DOCUMENT PREPARER-BC Copy to: ? Final Report SPECIMEN ADEQUACY ? Satisfactory for Evaluation - transformation zone component present GENERAL CATEGORIZATION ? Negative for Intraepithelial Lesion or Malignancy ?? Last Menstrual Period: 5 Yrs ago Other: Additional clinical information: Z00.00 Z12.4 Z01.419 Specimen/Source: ??Pap Test, Cervix, ThinPrep Imaging System with manual evaluation Document reviewed and electronically signed by: ? Rhea Jacinto, CT(ASCP) ? Report ??Date: 08/01/2018 11:10 HPV with Pap Test ? Date Ordered: ? 08/01/2018 ? Status: ?? Signed Out ?Date Complete: ? 08/02/2018 ? By: ??System Interface ? Date Reported: ? 08/02/2018 ? Interpretation RESULT: Negative for HPV. No E6 or E7 mRNA is detected from HPV types 16,18,31,33,35, 39,45,51,52,56,58, 59,66, and 68 by bowling ball marker mediated amplification. Comments Document reviewed and electronically signed by: ? System Interface ? Report date: 08/02/2018 By the signature above, the attending physician certifies that he/she has personally conducted a gross and/or microscopic examination of the described specimens and rendered or confirmed the above diagnosis. End of Report [facility] 07/27/2018 07/30/2018 Ron Barton MICROFILMING DOCUMENT PREPARER- PATHOLOGY ORDERA BLES [facility] [address] [place] [address] documented in this encounter Visit Diagnoses Not on filedocumented in this encounter Care Teams Analysis Manager Relationship Specialty Start Date End Date Devonte Young MD [address] [place] [address] PCP - General 01/11/17 documented as of this encounter
--- OUTSIDE RECORDS SUMMARY | 2024-04-04 18:08 | XMS_ITS | Encounter Summary ---
Author Organization [facility] Address [address] [place] [address] Care Team Providers Care Steam Boiler Fireman Name Role Phone Unknown, Provider Primary Care Provider Encounter Details Date Type Department Care Team (Latest Contact Info) Description 01/10/2017 9:42 EDT - 01/10/2017 23:59 EDT Hospital Encounter [address] [address] Unknown, Provider, Discharge Disposition: Home or Self Care Social History Tobacco Use Types Packs/Day Years Used Date Smoking Tobacco: Never Assessed Sex and Gender Information Value Date Recorded Sex Assigned at Not on file Gender Identity Not on file Sexual Orientation Not on file documented as of this encounter Discharge Disposition Disposition Code Departure Means Destination Home or Self [facility] documented in this encounter Plan of Treatment Not on file documented as of this encounter Visit Diagnoses Not on filedocumented in this encounter Care Teams Steam Boiler Fireman Relationship Specialty Start Date End Date Unknown, Provider, PCP - General 05/23/15 01/10/17 documented as of this encounter
--- OUTSIDE RECORDS SUMMARY | 2024-04-04 18:08 | XMS_ITS | Encounter Summary ---
Author Organization [facility] Address [address] [place] [address] Care Team Providers Care Loan Teller Name Role Phone Devonte Young MD Primary Care Provider [phone] Encounter Details Date Type Department Care Team (Latest Contact Info) Description 01/03/2024 Lab Requisition [facility] Pathology & Laboratory Medicine - [facility] [address] [place] [address] Shalonda Nicholas, COLLAR TURNER [address] [facility] [address] [place] [id number] Encounter for gynecological examination (general) (routine) without abnormal findings; Encounter for screening for malignant neoplasm of cervix; Encounter for general adult medical examination without abnormal findings Social History Tobacco Use Types Packs/Day Years [...] Name Priority Date/Time Associated Diagnosis Comments PAP TEST Today 01/01/2024 14:00 EDT Encounter for gynecological examination (general) (routine) without abnormal findings Encounter for screening for malignant neoplasm of cervix Encounter for general adult medical examination without abnormal findings HPV DNA DETECTION WITH GENOTYPING, PCR Today 01/01/2024 14:00 EDT Encounter for gynecological examination (general) (routine) without abnormal findings Encounter for screening for malignant neoplasm of cervix Encounter for general adult medical examination without abnormal findings documented in this encounter Results * HUMAN PAPILLOMAVIRUS (HPV) DETECTION-HIGH RISK TYPES (01/01/2024 14:00 EDT) HPV other High Risk types, PCR Negative Negative 01/09/2024 15:40 EDT [facility] Comment:No E6 or E7 mRNA is detected from HPV types 16,18,31,33,35,39,45,51,52,56,58,59,66, and 68 by radio engineering teacher mediated amplification. Pap Test CERVIX UTERI STRUCTURE / Unknown 01/01/2024 14:00 EDT 01/08/2024 14:11 EDT Shalonda Nicholas APRN MICROBIOLOGY - NERAL ORDERABLES [facility] [address] [place] [id number] * PAP TEST (01/01/2024 14:00 EDT) Specimens A. Cervix and/or Endocervix , ThinPrep Imaging System with Manual Evaluation 01/09/2024 15:40 T [facility] Specimen Adequacy Satisfactory for Evaluation - transformation zone component present 01/09/2024 15:40 T [facility] General Categorization Negative for intraepithelial lesion or malignancy 01/09/2024 15:40 T [facility] Attestation . 01/09/2024 15:40 [facility] at 1540 Clinical History See below 01/09/20 24 15:40 T [facility] HPV The result for the Human Papillomavirus (HPV) Detection-High Risk Types is Negative. No E6 or E7 mRNA is detected from HPV types 16,18,31,33,35,39 ,45,51,52,56,58,5 9,66, and 68 by radio engineering teacher mediated amplification.Jenny ting was performed on specimen [id number] and was resulted on 01/09/2024 1540 EDT by SHASHA, LAB INSTRUMENT RESULTS IN 01/09/2024 15:40 EDT [facility] Performing Lab [facility] 01/09/2024 15:40 EDT [facility] Scanned Images 01/09/2024 15:40 EDT [facility] Pap Test CERVIX UTERI STRUCTURE / Unknown 01/01/2024 14:00 EDT 01/03/2024 12:20 EDT Shalonda Nicholas COLLAR TURNER PATHOLOGY ORDERAB LES [facility] [address] [place], [place] [id number] documented in this encounter Visit Diagnoses Diagnosis Encounter for gynecological examination (general) (routine) without abnormal findings Encounter for screening for malignant neoplasm of cervix Screening for malignant neoplasm of the cervix Encounter for general adult medical examination without abnormal findings Unspecified general medical examination documented in this encounter Care Teams Loan Teller Relationship Specialty Start Date End Date Devonte Young MD [address] [place] [address] PCP - General 01/11/17 documented as of this encounter
--- OUTSIDE RECORDS SUMMARY | 2024-04-04 18:08 | XMS_ITS | Encounter Summary ---
Author Organization [facility] Address [address] [place] [address] Care Team Providers Care Sales Agent Fire Insurance Name Role Phone Unknown, Provider Primary Care Provider [phone] Encounter Details Date Type Department Care Team (Late st Contact Info) Description 07/15/2016 Results Only [facility] [phone] Samir Ontivreos MD [address] [place] [address],[address] [place], [place] [address] Social History Tobacco Use Types Packs/Day Years Used Date Smoking Tobacco: Never Assessed Sex and Gender Information Value Date Recorded Sex Assigned at Not on file Gender Identity Not on file Sexual Orientation Not on file documented as of this encounter Plan of Treatment Not on file documented as of this encounter Procedures Procedure Name Priority Date/Time Associated Diagnosis Comments SURGICAL PATHOLOGY Routine 07/15/2016 9:50 EST documented in this encounter Results * SURGICAL PATHOLOGY (07/15/2016 9:50 EST) Pathology Report: SURGICAL PATHOLOGY REPORT Reports generated via electronic interface contain original data; however they are lacking the format of the original report. Caution should be taken when reading/interpret ing unformatted reports. Name: ? TANO PUENTES ? Accession #: ? [id number] ? : ? 1960 (Age: 55) ??F ? Collect Date: ? 07/15/2016 ? Location: ? [facility] ? Receive Date: ? 07/18/2016 ? Provider: SAMIR ONTIVEROS MD Copy to: SHERMAN OLSON MD ? Final Pathologic Diagnosis: LABIA, VAGINAL WALL CYST, RIGHT, EXCISION: - Fragments of blood clot and scant superficial strips of squamous epithelium. - No definitive [...] or confirmed the above diagnosis. Specimen(s) Received: Contents of vaginal wall cyst, R labial cyst Clinical History: R labial/vaginal wall cyst, filled with organized blood clot Gross Description: ? Received in formalin labelled with proper patient identification (initials P, R) and labial cyst are multiple irregular fragments of soft red-brown tissue (0.7 x 0.7 x 0.4 cm in aggregate). No definitive cyst is identified. The specimen is submitted in toto in 1. LISA Powers (ASCP) 07/18/2016 11:44 AM End of Report [facility] 07/15/2016 9:50 EST 07/18/2016 9:50 EST Samir Ontiveros MD PATHOLOGY ORDERABLES [facility] [address] [place] [address] documented in this encounter Visit Diagnoses Not on filedocumented in this encounter Care Teams Sales Agent Fire Insurance Relationship Specialty Start Date End Date Unknown, Provider, PCP - General 05/23/15 01/10/17 documented as of this encounter
--- OUTSIDE RECORDS SUMMARY | 2024-04-04 18:08 | XMS_ITS | Encounter Summary ---
Author Organization [facility] [place] [address] [place] [address] Care Team Providers Care Buffer Automatic Name Role Phone Shalonda Nicholas DENNISE Primary Care Provider [phone] Reason for Referral * Consultation (Routine) - Complete - Unable to Contact Patient Specialty Diagnoses / Procedures Referred By Robin salinas Referred To Contact Neurology Diagnoses Neuropathic pain, leg, left Analia Godwin APRN [facility] [place] [address] Jasson Jameson MD [facility] [place] [address] Referral ID Status Reason Start Date Expiration Date Visits Requested Visits Authorized [id number] Complete - Unable to Contact Patient Consult, Test & Treat 01/28/2015 01/28/2016 1 1 Encounter Details Date Type Department Care Team (Late st Contact Info) Description 01/28/2015 Orders [place] [address] Analia Godwin [facility] [address] Neuropathic pain, leg, left Social History Tobacco Use Types Packs/Day Years Used Date Smoking Tobacco: Never Alcohol Use Standard Drinks/Week Comments No 0 (1 standard drink = 0.6 oz pur e alcohol) Sex and Gender Information Value Date Recorded Sex Assigned at Not on file Gender Identity Not on file Sexual Orientation Not on file documented as of this encounter Progress Notes * Analia Godwin APRN - 01/28/2015 8:16 AM EDT X rays of left leg do not show explanation for neuropathic leg pain symptoms. Reviewed with Dr. Prabhakar. Noted left trochanteric bursitis on Xray- most likely related to imbalance due to leg pain- will not treat this now, as it is not the underlying cause of her symptoms. Dr. Prabhakar has spoken with Dr. Roscoe Schreiber who recommended referral to Dr. Jasson Jameson (neurology). Will set up this referral assoon as possible. Per Dr. Prabhakar, may consider lumbar sympathetic nerve block after neurology evaluation. I left a message on patient's phone this morning to have her call me back regarding xray results and plan. Analia Godwin, DNP, ANP, RESIDENTIAL TECH documented in this encounter Plan of Treatment Scheduled Referrals Name Type Priority Associated Diagnoses Orde r Schedule Referral to Neurology Outpatient Referral Routine Neuropathic pain, leg, left Ordered: 01/28/2015 documented as of this encounter Visit Diagnoses Diagnosis Neuropathic pain, leg, left documented in this encounter Care Teams Buffer Automatic Relationship Specialty Start Date End Date Shalonda Nicholas APRN [address] [place] [address] PCP - General 11/27/14 documented as of this encounter
--- OUTSIDE RECORDS SUMMARY | 2024-04-04 18:08 | XMS_ITS | Encounter Summary ---
[place] [address] Care Team Providers Care Roll Carrier Name Role Phone Shalonda Nicholas DENNISE Primary Care Provider [phone] Encounter Details Date Type Department Care Team (Late st Contact Info) Description 01/30/2015 Telephone [place] [phone] Candace Aguillon RN Social History Tobacco Use Types Packs/Day Years Used Date Smoking Tobacco: Never Alcohol Use Standard Drinks/Week Comments No 0 (1 standard drink = 0.6 oz pur e alcohol) Sex and Gender Information Value Date Recorded Sex Assigned at Not on file Gender Identity Not on file Sexual Orientation Not on file documented as of this encounter Miscellaneous Notes * Telephone Encounter - Candace Matthews RN - 01/30/2015 7:48 AM EDT [facility] Preauthorization denial Patient: Amanda Gottlieb [id number] Pain [facility] Center Preauthorization Request Patient: Amanda Gottlieb [id number] Fax received from [facility] brianna Verduzco 'The patient must have a documented side effect, allergy or treatment failure to TWO drugs from thefollowing:Gabapentin, tricylic antidepressant, SSRI antidepressant, SSRI antidepressant, Miscellaneous antidepressant, cyclobensaprine RX insurance [place]: [place] [employer] insurance telephone: [phone] Patient Diagnosis: Neuro pathic pain of lower extremity 355.8 and Left Leg pain 729.5 Previous medications attempted: gabapentin,Acetaminophen,Nsaids, Vicodin __ sent to clinical review, patient informed _x_ denied, provider and patient informed __ provider does not wish to appeal denial, patient informed __ appeal initiated by provider, patient informed Candace Matthews RN documented in this encounter Plan of Treatment Not on file documented as of this encounter Visit Diagnoses Not on filedocumented in this encounter Care Teams Roll Carrier Relationship Specialty Start Date End Date Shalonda Nicholas APRN [address] [place] [address] PCP - General 11/27/14 documented as of this encounter
--- OUTSIDE RECORDS SUMMARY | 2024-04-04 18:08 | XMS_ITS | Clinical Summary ---
Author Organization [facility] Address [facility] [place] [address] Care Team Providers Care Medicare Coordinator Name Role Phone Shalonda Nicholas DENNISE Primary Care Provider [phone] Allergies Active Allergy Reactions Criticality Noted Date Comments Codeine 12/01/2014 Gabapentin 12/01/2014 Penicillins 12/01/2014 Medications Medication Sig Dispensed Refills Start Date End Date Status atenolol (TENORMIN) 50 mg Tablet Take 25 mg by mouth daily. Active amitriptyline (ELAVIL) 10 mg Tablet Take 1 tablet by mouth nightly. May increase by 1 tablet every 2-3 nights as needed. Maximum of 5 tablets at night. 60 tablet 3 02/02/2015 Active Active Problems Problem Noted Date Diagnosed Date Hypertension 12/01/2014 Obesity 12/01/2014 Hyperlipidemia 12/01/2014 Social History Tobacco Use Types Packs/Day Years Used Date Smoking Tobacco: Never Alcohol Use Standard Drinks/Week Comments No 0 (1 standard drink = 0.6 oz pur e alcohol) Sex and Gender Information Value Date Recorded Sex Assigned at Not on file Gender Identity Not on file Sexual Orientation Not on file Last Filed Vital Signs Vital Sign Reading Time Taken Comments Blood Pressure 135/81 01/26/2015 1:58 PM EDT Pulse 78 01/26/2015 1:58 PM EDT Temperature - - Respiratory Rate 20 12/26/2014 8:53 AM EDT Oxygen Saturation 98% 01/26/2015 1:58 PM EDT Inhaled Oxygen Concentration - - Weight 115.2 kg (254 lb) 01/26/2015 1:58 PM EDT Height 167.6 cm (5' 6) 01/26/2015 1:58 PM EDT Body Mass Index 41 01/26/2015 1:58 PM EDT Plan of Treatment Health Maintenance Due Date Last Done Comments CT Colonography 1960 Colonoscopy 1960 Colorectal Cancer Screening 1960 FIT DNA 1960 FIT 1960 Sigmoidoscopy (10 year) with FIT yearly 1960 Sigmoidoscopy 1960 HIV screen 1976 Hepatitis C Screening 1976 Tdap adult 1977 Tetanus vaccine 1977 HPV test 1988 PAP Smear 1988 Breast Cancer Share Decision Needed 1998 Breast Cancer screening 1998 Zoster vaccine (1 of 2) 2008 Advance Directive 2013 Bone Density Scan 2023 Pneumoccocal Vaccine: 65+ (1 of 1 - PCV) 2023 Covid-19 Vaccine (1 - 2022-24 season) 2024 Influenza (Flu) vaccine (1 o f 1 - Influenza standard series) 03/17/2024 Care Teams Medicare Coordinator Relationship Specialty Start Date End Date Shalonda Nicholas APRN [address] [place] [address] PCP - General 11/27/14
--- OUTSIDE RECORDS SUMMARY | 2024-04-04 18:08 | XMS_ITS | Encounter Summary ---
Author Organization [facility] [place] [address] Care Team Providers Care Superintendent Local Name Role Phone Jonah Alaniz DENNISE Primary Care Provider [phone] Reason for Visit * Reason Comments Left Leg Pain Encounter Details Date Type Department Care Team (Late st Contact Info) Description 01/26/2015 3:00 PM EDT Office [place] [address] Adam Prabhakar MD [facility] [place] [place] [address] Neuropathic pain of lower extremity, left; Left leg pain Discharge Disposition: Home Social History Tobacco Use [...] EDT documented in this encounter Progress Notes * Analia Rubio APRN - 01/26/2015 2:08 PM EDT [facility] [place] [address] Phone: PAIN MANAGEMENT NEW PATIENT / CONSULTATION [...] insurance company. Had bilateral leg ultrasound in [facility] negative for DVT. 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 IMPRESSION The patient was also seen and examined by Dr. Adam Prabhakar who developed the assessment and plan.Please refer to his note from today. 54 year old with progressively worse entire left leg pain, unclear etiology, significantly interfering with function. Has a neuropathic component with allodynia, hyperalgesia, and hyperpathia. Unlikely related to joints as it does not improve with taking the weight off. Unusual diabetic neuropathicpresentation is a consideration. PLAN/RECOMMENDATIONS 1. Xrays of [...] results. 6. Recommend keeping neurologist appointment in [facility] on 02/19/15 Amanda Contreras had the opportunity to ask questions and indicated that all questions were answered to her satisfaction. Analia Rubio, DNP, ANP-CS, RECTIFIER OPERATOR, Nurse Practitioner [facility] Addendum: I spoke with ELLIE Smith after patient left the office. Last blood sugar was 12/30/2013 (77)- recommended check A1C to make sure she doesn't have diabetes (recent weight gain). Mar stated patient had CT abd and pelvis ion 11/19/14 at [facility] that didn't show any pathology- she will faxus a copy. Discussed our plan with her. I have seen the patient and reviewed the resident's above history and I agree with the details as written. I personally interviewed the patient and performed critical or vázquez elements of the physical examination as appropriate. The assessment and management plan were formulated in discussion with meand I agree with them as documented. Adam Prabhakar MD Rn [facility] of Anesthesiology [facility] documented in this encounter Plan of Treatment Not on file documented as of this encounter Results * XR tibia fibula [...] series. Adam Prabhakar MD IMG DX ORDERABLES * XR femur 2 view (01/26/2015 4:37 [...] Diagnoses Diagnosis Neuropathic pain of lower extremity, left Left leg pain Pain in limb Left leg pain Pain in limb Neuropathic pain of lower extremity, left Left leg pain Pain in limb Neuropathic pain of lower extremity, left documented in this encounter Care Teams Superintendent Local Relationship Specialty Start Date End Date Jonah Alaniz APRN [address] [place] [address] PCP - General 11/27/14 documented as of this encounter
--- OUTSIDE RECORDS SUMMARY | 2024-04-04 18:08 | XMS_ITS | Encounter Summary ---
Author Organization [facility] [place] [address] Care Team Providers Care Master Tax Advisor Name Role Phone Shalonda Nicholas DENNISE Primary Care Provider [phone] Encounter Details Date Type Department Care Team (Late st Contact Info) Description 02/02/2015 Orders [place] [address] Analia Godwin APRN [facility] [address] [place] [address] Social History Tobacco Use Types Packs/Day Years Used Date Smoking Tobacco: Never Alcohol Use Standard Drinks/Week Comments No 0 (1 standard drink = 0.6 oz pur e alcohol) Sex and Gender Information Value Date Recorded Sex Assigned at Not on file Gender Identity Not on file Sexual Orientation Not on file documented as of this encounter Progress Notes * Analia Godwin APRN - 02/02/2015 10:02 AM EDT Insurance denied payment for Lyrica. Discussed with Dr. Prabhakar. Previous GI reaction to gabapentin.Will try amitriptyline 10 mg at night, may increase up to [address] Prabhakar spoke with and he (Dr. Jameson) is arranging appointment with neuropathy clinic. I called patient and left message on her answering machine regarding the amitriptyline and neuro appointment. I asked her to call me back so I would know she received the message and to see if she has any questions. Analia Godwin, MARLYS, ANP, TRANSCRIBER documented in this encounter Plan of Treatment Not on file documented as of this encounter Visit Diagnoses Not on filedocumented in this encounter Care Teams Master Tax Advisor Relationship Specialty Start Date End Date Shalonda Nicholas APRN [address] [place] [address] PCP - General 11/27/14 documented as of this encounter
[2024-04-04 22:42] LABS: Bilirubin Negative (Negative); Blood Negative (Negative); Clarity Cloudy (Clear); Glucose Negative (Negative); Ketones Negative (Negative); Leukocyte Esterase Trace (Negative); Nitrite Negative (Negative); Specific Gravity >= 1.030 (1.005-1.025); Urobilinogen 0.2 mg/dL (Up to 0.2); pH 5.5 (5-8)
[2024-04-04 22:49] LABS: Bacteria Negative HPF (Negative); C & S Indicated? No; Crystals Many Amorphous HPF (Negative); Epithelial Cells Many HPF (Negative); Mucus Trace (Negative); RBC Negative HPF (0-2)
== END 2024-04-04 18:06 | disposition home or self-care (01) ==
LOC: NCHCN 18:05
PROVIDERS: PCP Nurse Practitioner Family; Visit Provider Nurse Practitioner Family
DX: R35.0 Frequency of micturition (principal); R82.89 Other abnormal findings on cytological and histological examination of urine
CPT/HCPCS: 81003; 81015

== ENCOUNTER 2024-05-23 02:56 | Outpatient (CLI) | payer MEDICARE, MEDICAID, SELFPAY ==
--- NOTE | 2024-05-23 | DI.DEXA_ITS ---
Exam(s) XR DEXA BONE DENSITY W/WO JUDIE EXAM: XR DEXA BONE DENSITY W/WO JUDIE CLINICAL HISTORY: Asymptomatic menopausal state, Z78.0; screening for osteoporosis TECHNIQUE: Hologic Horizon C densitometer analysis of left hip, lumbar spine and right forearm. La teral survey image of the thoracic and lumbar spine. COMPARISON: MR MRI - LUMBAR SPINE WO CONTRAST from 02/24/2015 FINDINGS: Lateral view of the thoracic and lumbar spine shows no evidence of compression fractures. Bone mineral density measurements of the lumbar spine correspond to a total T-score of 0.4, in the n ormal range. Bone mineral density measurements of the left hip correspond to a total T-score of 0.6. The femoral neck T-score is -0.5, in the normal range.. Theright forearm bone mineral density measurements correspond to a T-score of the distal 3rd of -0.7 , in the normal range. IMPRESSION: Normal bone mineral density.
== END 2024-05-23 03:16 ==
PROVIDERS: PCP Nurse Practitioner Family; Visit Provider Nurse Practitioner Family
DX: Z78.0 Asymptomatic menopausal state (principal); Z13.820 Encounter for screening for osteoporosis
CPT/HCPCS: 77080

== ENCOUNTER 2024-07-01 18:39 | Outpatient (REF) | payer MEDICARE, MEDICAID, SELFPAY ==
--- OUTSIDE RECORDS SUMMARY | 2024-07-01 18:42 | XMS_ITS | Encounter Summary ---
Author Organization [facility] [place] [address] Care Team Providers Care Quebracho Tanner Name Role Phone Shalonda Nicholas DENNISE Primary Care Provider [phone] Encounter Details Date Type Department Care Team (Late st Contact Info) Description 02/02/2015 Orders [place] [address] Analia Godwin APRN [facility] [place] [address] Social History Tobacco Use Types Packs/Day Years [...] has any questions. Analia Godwin, MARLYS, ANP, SCHOOL DIRECTOR documented in this encounter Plan of Treatment Not on file documented as of this encounter Visit Diagnoses Not on filedocumented in this encounter Care Teams Quebracho Tanner Relationship Specialty Start Date End Date Shalonda Nicholas APRN [address] [place] [address] PCP - General 11/27/14 documented as of this encounter
--- OUTSIDE RECORDS SUMMARY | 2024-07-01 18:42 | XMS_ITS | Encounter Summary ---
Author Organization [facility] Address [facility] [place] [address] Care Team Providers Care Probe Operator Name Role Phone Shalonda Nicholas APRN Primary Care Provider [phone] Reason for Visit * Reason Comments Varicose Veins Establish Care Encounter Details Date Type Department Care Team (Late st Contact Info) Description 12/26/2014 9:00 AM EDT Office Visit [place] [phone] Nancy Ruggiero MD [facility] [place] [address] Leg swelling Discharge Disposition: Home Social History [...] Text Report Department: Vascular Surgery Lab Patient: [id number] (TANO CONTRERAS) CPT Code: 46150 ICD-9: Referring Physician: NANCY RUGGIERO Indication: ? [...] limb documented in this encounter Care Teams Probe Operator Relationship Specialty Start Date End Date Shalonda Nicholas, DENNISE [address] [place] [address] PCP - General 11/27/14 documented as of this encounter
--- OUTSIDE RECORDS SUMMARY | 2024-07-01 18:42 | XMS_ITS | Encounter Summary ---
Author Organization [facility] Address [facility] [place] [address] Care Team Providers Care Medical Administrative Name Role Phone Jonah Alaniz DENNISE Primary Care Provider [phone] Reason for Visit * Reason Comments Left Leg Pain Encounter Details Date Type Department Care Team (Late st Contact Info) Description 01/26/2015 3:00 PM EDT Office [place] [address] Adam Prabhakar MD [facility] [place] [address] Neuropathic pain of lower extremity, left; Left [...] Rubio APRN - 01/26/2015 2:08 PM EDT [facility] [place] [address] Phone: PAIN MANAGEMENT NEW PATIENT / CONSULTATION [...] insurance company. Had bilateral leg ultrasound in [facility] negative for DVT. 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 6. Recommend keeping neurologist appointment in [facility] on 02/19/15 Amanda Contreras had the opportunity to ask questions and indicated that all questions were answered to her satisfaction. Analia Rubio, DNP, ANP-CS, COATING ENGINEER, Nurse Practitioner Pain Management Center Addendum: I spoke with ELLIE Smith after patient left the office. Last blood sugar was 12/30/2013 (77)- recommended check A1C to make sure she doesn't have diabetes (recent weight gain). Mar stated patient had CT abd and pelvis ion 11/19/14 at [facility] that didn't show any pathology- she [...] with them as documented. Adam Prabhakar MD Nurse Private Duty of Anesthesiology Pain Management [facility] documented in this encounter Plan of Treatment [...] left documented in this encounter Care Teams Medical Administrative Relationship Specialty Start Date End Date Jonah Alaniz APRN [address] [place] [address] PCP - General 11/27/14 documented as of this encounter
--- OUTSIDE RECORDS SUMMARY | 2024-07-01 18:42 | XMS_ITS | Encounter Summary ---
Author Organization [facility] Address [address] [place] [address] Care Team Providers Care Railroad Yard Worker Name Role Phone Devonte Young MD Primary Care Provider [phone] Encounter Details Date Type Department Care Team (Late st Contact Info) Description 11/26/2020 Lab Requisition [facility] - [facility] [address] [place] [address] Dimitrios Patel MD [address] [place] [address] [address] [place], [place] [id number] Encounter for other general examination Social History Tobacco Use Types Packs/Day Years Used Date Smoking Tobacco: Never Assessed Interpersonal Safety Answer Date Record ed Physically Hurt Never 02/16/2020 Verbally Threaten Not on file 02/16/2020 Comments Unknown Sex and Gender Information Value Date Recorded Sex Assigned at Not on file Legal Sex Female 18:30 EST Gender Identity Not on file Sexual Orientation [...] papillary cholesterolosis. - Cholelithiasis. 11/30/2020 17:44 EDT [facility] Attestation There was significant resident/fellow involvement in the diagnostic evaluation of this case. By the signature below, the attending physician certifies that they have personally conducted a gross and/or microscopic examination of the described specimens and rendered or confirmed the above diagnosis. 11/30/2020 17:44 EDT [facility] at 1744 Clinical History Biliary colic 11/30/2020 17:44 EDT [facility] Gross Description A. Received in [...] cystic duct margin, en face, and 2 community engagement representative sections are submitted in A1. LISA CHILEL(ASCP) 11/26/2020 9:17 11/30/2020 17:44 EDT [facility] Resident/Stewart w: Elvis Angela DO 11/30/2020 17:44 EDT [facility] Performing Lab [facility] 11/30/2020 17:44 T [facility] Scanned Images 11/30/2020 17:44 T [facility] Tissue ENTIRE GALLBLADDER / Unknown 11/25/2020 12:25 EDT 11/26/2020 7:32 EDT us Dimitrios Patel MD PATHOLOGY ORDERABLES Fin al Result [facility] [address] [place] [address] documented in this encounter Visit Diagnoses Diagnosis Encounter for other general examination documented in this encounter Care Teams Railroad Yard Worker Relationship Specialty Start Date End Date Devonte Young MD [address] [place] [address] PCP - General 01/11/17 documented as of this encounter
--- OUTSIDE RECORDS SUMMARY | 2024-07-01 18:42 | XMS_ITS | Encounter Summary ---
[place] [address] Care Team Providers Care Record Producer Name Role Phone Shalonda Nicholas DENNISE Primary Care Provider [phone] Encounter Details Date Type Department Care Team (Late st Contact Info) Description 01/30/2015 Telephone [place] [phone] Candace Aguillon RN Social History Tobacco Use [...] Management Center Preauthorization denial Patient: Amanda Gottlieb [id number] Pain Management Center Preauthorization Request Patient: Amanda Gottlieb [id number] Fax received from [facility] brianna Verduzco 'The patient must have a documented side effect, allergy or treatment failure to TWO drugs from thefollowing:Gabapentin, tricylic antidepressant, SSRI antidepressant, SSRI antidepressant, Miscellaneous antidepressant, cyclobensaprine RX insurance plan: [place] Primary care Plus RX insurance telephone: [phone] Patient Diagnosis: Neuro pathic pain of lower [...] on filedocumented in this encounter Care Teams Record Producer Relationship Specialty Start Date End Date Shalonda Nicholas APRN [address] [place] [address] PCP - General 11/27/14 documented as of this encounter
--- OUTSIDE RECORDS SUMMARY | 2024-07-01 18:42 | XMS_ITS | Encounter Summary ---
Author Organization [facility] Address [facility] [place] [address] Care Team Providers Care Razor Grinder Name Role Phone Shalonda Nicholas DENNISE Primary Care Provider [phone] Encounter Details Date Type Department Care Team (Latest Contact Info) Description 01/26/2015 4:06 PM EDT - 01/26/2015 11:59 PM EDT Hospital Encounter XRay at [address] [place] [address] Left leg pain; Neuropathic pain of lower [...] left documented in this encounter Care Teams Razor Grinder Relationship Specialty Start Date End Date Shalonda Nicholas APRN [address] [place] [address] PCP - General 11/27/14 documented as of this encounter
--- OUTSIDE RECORDS SUMMARY | 2024-07-01 18:42 | XMS_ITS | Encounter Summary ---
Author Organization [facility] Address [address] [place] [address] Care Team Providers Care Farm Operations Manager Name Role Phone Unknown, Provider MD Primary Care Provider Unava ilable Encounter Details Date Type Department Care Team (Latest Contact Info) Description 01/10/2017 9:42 EDT - 01/10/2017 23:59 EDT Hospital Encounter [address] [address] Unknown, ProviderMD Discharge Disposition: Home or Self Care Social History Tobacco Use Types Packs/Day Years Used Date Smoking Tobacco: Never Assessed Comments Unknown Sex and Gender Information Value Date Recorded Sex Assigned at Not on file Legal Sex Female 18:30 EST Gender Identity Not on file Sexual Orientation Not on file documented as of this encounter Discharge Disposition Disposition Code Departure Means Destination Home or Self [facility] documented in this encounter Plan of Treatment Not on file documented as of this encounter Visit Diagnoses Not on filedocumented in this encounter Care Teams Farm Operations Manager Relationship Specialty Start Date End Date Unknown, ProviderMD PCP - General 05/23/15 01/10/17 documented as of this encounter
--- OUTSIDE RECORDS SUMMARY | 2024-07-01 18:42 | XMS_ITS | Encounter Summary ---
Author Organization [facility] Address [address] [place] [address] Care Team Providers Care Logistics Intern Name Role Phone Unknown, Provider Primary Care Provider Unava ilable Encounter Details Date Type Department Care Team (Late st Contact Info) Description 07/15/2016 Results Only [facility]- [facility] [phone] Samir Ontiveros MD [address] [place] [address],[facility] [place] [address] Social History Tobacco Use Types Packs/Day Years [...] (ASCP) 07/18/2016 11:44 AM End of Report [facility] 07/15/2016 9:50 EST 07/18/2016 9:50 EST us Samir Ontiveros MD PATHOLOGY ORDERABLES Final Res ult [facility] [address] [place] [address] documented in this encounter Visit Diagnoses Not on filedocumented in this encounter Care Teams Logistics Intern Relationship Specialty Start Date End Date Unknown, Provider, PCP - General 05/23/15 01/10/17 documented as of this encounter
--- OUTSIDE RECORDS SUMMARY | 2024-07-01 18:42 | XMS_ITS | Encounter Summary ---
[place] [address] Care Team Providers Care Tool Storage Attendant Name Role Phone CristopherShalonda DENNISE Primary Care Provider [phone] Encounter Details Date Type Department Care Team (Late st Contact Info) Description 01/29/2015 Telephone [place] [phone] Arlette Corbin, RN Social History Tobacco Use [...] Management Center Preauthorization Request Patient: Amanda Contreras [id number] Fax received from [facility] requesting we obtain prior authorization for Lyrica 75 mg prescribed by Analia Rubio APRN. RX insurance plan: [place] [employer] care [employer] RX insurance telephone: [phone] Patient Diagnosis: Neuro pathic pain of lower extremity 355.8 and Left Leg pain 729.5 Previous medications attempted: gabapentin,Acetaminophen,Nsaids, Vicodin Faxed form waiting for a reply Arlette Corbin LPN documented in this encounter Plan of Treatment Not on file documented as of this encounter Visit Diagnoses Not on filedocumented in this encounter Care Teams Tool Storage Attendant Relationship Specialty Start Date End Date Shalonda Nicholas APRN [address] [place] [address] PCP - General 11/27/14 documented as of this encounter
--- OUTSIDE RECORDS SUMMARY | 2024-07-01 18:42 | XMS_ITS | Encounter Summary ---
Author Organization [facility] Address [address] [place] [address] Care Team Providers Care Taximeter Repairer Name Role Phone Devonte Young MD Primary Care Provider [phone] Encounter Details Date Type Department Care Team (Late st Contact Info) Description 07/27/2018 Results Only [facility]- [facility] [phone] Ron Barton, PERSONNEL COUNSELOR- [address] [place] [address] Social History Tobacco Use Types [...] Date: ? 07/30/2018 ? Provider: RON LILLY PERSONNEL COUNSELOR-BC Copy to: ? Final Report SPECIMEN ADEQUACY [...] types 16,18,31,33,35, 39,45,51,52,56,58, 59,66, and 68 by stained glass artist mediated amplification. Comments Document reviewed and electronically signed by: ? System Interface ? Report date: 08/02/2018 By the signature above, the attending physician certifies that he/she has personally conducted a gross and/or microscopic examination of the described specimens and rendered or confirmed the above diagnosis. End of Report [facility] 07/27/2018 07/30/2018 us Ron Barton PERSONNEL COUNSELOR-BC PATHOLOGY ORDERABLES Fin al Result [facility] [address] [place] [address] documented in this encounter Visit Diagnoses Not on filedocumented in this encounter Care Teams Taximeter Repairer Relationship Specialty Start Date End Date Devonte Young MD [address] [place] [address] PCP - General 01/11/17 documented as of this encounter
--- OUTSIDE RECORDS SUMMARY | 2024-07-01 18:42 | XMS_ITS | Clinical Summary ---
Author Organization [facility] Address [facility] [place] [address] Care Team Providers Care Market Intelligence Consultant Name Role Phone Shalonda Nicholas DENNISE Primary Care Provider [phone] Allergies Active Allergy Reactions Criticality Noted Date [...] HIV screen 1976 Hepatitis C Screening 1976 Tetanus/Diphtheria/Pertussis Vaccines (1 - Tdap) 08/17 HPV test 1988 PAP Smear 1988 Breast Cancer Share Decision Needed 1998 Breast Cancer screening 1998 Zoster vaccine (1 of 2) 2008 Advance Directive 2013 Bone Density Scan 2023 Pneumoccocal Vaccine: 65+ (1 of 1 - PCV) 2023 Covid-19 Vaccine (1 - 2023- season) 2024 Influenza (Flu) vaccine (1 o f 1 - Influenza standard series) 03/17/2024 Care Teams Market Intelligence Consultant Relationship Specialty Start Date End Date Shalonda Nicholas APRN [address] [place] [address] PCP - General 11/27/14
--- OUTSIDE RECORDS SUMMARY | 2024-07-01 18:42 | XMS_ITS | Encounter Summary ---
[place] [address] Care Team Providers Care Hvac Controls Technician Name Role Phone Shalonda Nicholas APRN Primary Care Provider [phone] Encounter Details Date Type Department Care Team (Late st Contact Info) Description 12/01/2014 Abstract [place] [address] Vaishali Gregorio RN Social History Tobacco Use [...] on filedocumented in this encounter Care Teams Hvac Controls Technician Relationship Specialty Start Date End Date Shalonda Nicholas APRN [address] [place] [address] PCP - General 11/27/14 documented as of this encounter
--- OUTSIDE RECORDS SUMMARY | 2024-07-01 18:42 | XMS_ITS | Encounter Summary ---
Author Organization [facility] Address [address] [place] [address] Care Team Providers Care Mental Health Consultant Name Role Phone Unavailable Primary Care Provider Unavailabl e Encounter Details Date Type Department Care Team (Late st Contact Info) Description 07/01/2013 Results Only [facility]- [facility] [phone] Jonah Alaniz, TATTOO DESIGNER [address] [place] [address] Social History Tobacco Use Types Packs/Day Years [...] ? TANO CONTRERAS ? Accession #: ? [id number] ? : ? 1960 (Age: 52) ??F ?Collect Date: ? 07/01/2013 ? Location: ? [facility] ? Receive Date: ? 07/02/2013 ? Provider: JONAH ALANIZ TATTOO DESIGNER Copy to: ? Final Report SPECIMEN ADEQUACY [...] types 16,18,31,33,35, 39,45,51,52,56,58, 59,66, and 68 by medical equipment technician mediated amplification. Comments Document reviewed and electronically signed by: ? System Interface ? Report date: 07/05/2013 By the signature above, the attending physician certifies that he/she has personally conducted a gross and/or microscopic examination of the described specimens and rendered or confirmed the above diagnosis. End of Report [facility] 07/01/2013 07/02/2013 us Jonah Alaniz TATTOO DESIGNER PATHOLOGY ORDERABLES Zora ferris Result [facility] [address] [place] [address] documented in this encounter Visit Diagnoses Not on filedocumented in this encounter
--- OUTSIDE RECORDS SUMMARY | 2024-07-01 18:42 | XMS_ITS | Encounter Summary ---
Author Organization [facility] Address [address] [place] [address] Care Team Providers Care Coal Cutting Machine Operator Name Role Phone Unknown, Provider Primary Care Provider Unava ilable Encounter Details Date Type Department Care Team (Late st Contact Info) Description 01/10/2017 Results Only [facility] [phone] Flakito Blood MD [address] [place] [address] [address] [place], [place] [id number] Social History Tobacco Use Types Packs/Day Years [...] ? TANO CONTRERAS ? Accession #: ? [id number] ? : ? 1960 (Age: 56) ??F [...] cm). Entirely submitted in 1. LISA Powers ([facility]) 01/11/2017 7:39 AM End of Report [facility] 01/10/2017 19:3 0 EDT 01/10/2017 19:30 EDT us Flakito Blood MD PATHOLOGY ORDERABLES Fin al Result [facility] [address] [place] [address] documented in this encounter Visit Diagnoses Not on filedocumented in this encounter Care Teams Coal Cutting Machine Operator Relationship Specialty Start Date End Date Unknown, Provider, PCP - General 05/23/15 01/10/17 documented as of this encounter
--- OUTSIDE RECORDS SUMMARY | 2024-07-01 18:42 | XMS_ITS | Encounter Summary ---
Author Organization [facility] Address [address] [place] [address] Care Team Providers Care Oven Loader Name Role Phone Unavailable Primary Care Provider Unavailabl e Encounter Details Date Type Department Care Team (Late st Contact Info) Description 09/29/2003 Results Only [facility] [address] [place] [address] Lisa De Paz, FINANCIAL SPECIALIST Social History Tobacco Use Types Packs/Day Years [...] ? TANO CONTRERAS ? Accession #: ? [id number] : ? 1960 (Age: 43) ??F ?Collect Date: ? 09/29/2003 Location: ? [facility] ? Receive Date: ? 09/30/2003 Provider: ?LISA DE PAZ FINANCIAL SPECIALIST Copy to: ? Specimen/Source: ?ThinPrep Pap Test, [...] End of Report [facility] 09/29/2003 09/30/2003 us Lisa De Paz NP PATHOLOGY ORDERABLES Final Re sult [facility] [address] [place] [address] documented in this encounter Visit Diagnoses Not on filedocumented in this encounter
--- OUTSIDE RECORDS SUMMARY | 2024-07-01 18:42 | XMS_ITS | Encounter Summary ---
Author Organization [facility] Address [address] [place] [address] Care Team Providers Care Permastone Mechanic Name Role Phone Unavailable Primary Care Provider Unavailabl e Encounter Details Date Type Department Care Team (Late st Contact Info) Description 09/25/2002 Results Only [facility] [address] [place] [address] Lisa De Paz, HEARING AID ASSISTANT Social History Tobacco Use Types Packs/Day Years [...] ? TANO CONTRERAS ? Accession #: ? [id number] : ? 1960 (Age: 42) ??F ?Collect Date: ? 09/25/2002 Location: ? [facility] ? Receive Date: ? 09/26/2002 Provider: ?LISA DE PAZ HEARING AID ASSISTANT Copy to: ? Specimen/Source: ?ThinPrep Pap Test, [...] End of Report [facility] 09/25/2002 09/26/2002 us Lisa De Paz HEARING AID ASSISTANT PATHOLOGY ORDERABLES Final Re sult [facility] [address] [place] [address] documented in this encounter Visit Diagnoses Not on filedocumented in this encounter
--- OUTSIDE RECORDS SUMMARY | 2024-07-01 18:42 | XMS_ITS | Encounter Summary ---
Author Organization [facility] [place] [address] Care Team Providers Care Post Office Clerk Name Role Phone Shalonda Nicholas APRN Primary Care Provider [phone] Encounter Details Date Type Department Care Team (Late st Contact Info) Description 12/26/2014 9:00 AM EDT Ancillary Appointment [place] [address] Yared Frey [place] Leg swelling Social History [...] Text Report Department: Vascular Surgery Lab Patient: [id number] (TANO CONTRERAS) CPT Code: 83771 ICD-9: Referring Physician: NANCY RUGGIERO Indication: ? [...] limb documented in this encounter Care Teams Post Office Clerk Relationship Specialty Start Date End Date Shalonda Nicholas APRN [address] [place] [address] PCP - General 11/27/14 documented as of this encounter
--- OUTSIDE RECORDS SUMMARY | 2024-07-01 18:42 | XMS_ITS | Encounter Summary ---
Author Organization [facility] Address [facility] [place] [address] Care Team Providers Care Cath Lab Manager Name Role Phone Shalonda Nicholas DENNISE Primary Care Provider [phone] Encounter Details Date Type Department Care Team (Latest Contact Info) Description 01/26/2015 4:06 PM EDT - 01/26/2015 11:59 PM EDT Hospital Encounter XRay at [address] [place] [address] Left leg pain; Neuropathic pain of lower [...] left documented in this encounter Care Teams Cath Lab Manager Relationship Specialty Start Date End Date Shalonda Nicholas APRN [address] [place] [address] PCP - General 11/27/14 documented as of this encounter
--- OUTSIDE RECORDS SUMMARY | 2024-07-01 18:42 | XMS_ITS | Encounter Summary ---
Author Organization [facility] Address [address] [place] [address] Care Team Providers Care Bereavement Coordinator Name Role Phone Devonte Young MD Primary Care Provider [phone] Encounter Details Date Type Department Care Team (Latest Contact Info) Description 01/03/2024 Lab Requisition [facility] [address] [place] [address] Shalonda Nicholas, NETWORK FIREWALL ENGINEER [address] [facility] [address] [place] [address] Encounter for gynecological examination (general) (routine) without [...] types, PCR Negative Negative 01/09/2024 15:40 EDT [facility] Comment:No E6 or E7 mRNA is detected from HPV types 16,18,31,33,35,39,45,51,52,56,58,59,66, and 68 by stunt performer mediated amplification. Pap Test CERVIX UTERI STRUCTURE / Unknown 01/01/2024 14:00 EDT 01/08/2024 14:11 EDT us Shalonda Nicholas NETWORK FIREWALL ENGINEER MICROBIOLOGY - GENERAL OR DERABLES Final Result [facility] [address] [place] [id number] * PAP TEST (01/01/2024 14:00 EDT) Specimens A. Cervix and/or Endocervix , ThinPrep Imaging System with Manual Evaluation 01/09/2024 15:40 [facility] Specimen Adequacy Satisfactory for Evaluation - transformation zone component present 01/09/2024 15:40 [facility] General Categorization Negative for intraepithelial lesion or malignancy 01/09/2024 15:40 [facility] Attestation . 01/09/2024 15:40 [facility] at 1540 Clinical History See below 01/09/20 15:40 T [facility] HPV The result for the Human Papillomavirus (HPV) Detection-High Risk Types is Negative. No E6 or E7 mRNA is detected from HPV types 16,18,31,33,35,39 ,45,51,52,56,58,5 9,66, and 68 by stunt performer mediated amplification.Jenny ting was performed on specimen [id number] and was resulted on 01/09/2024 1540 EDT by SHASHA, LAB INSTRUMENT RESULTS IN 01/09/2024 15:40 EDT [facility] Performing Lab [facility] 01/09/2024 15:40 EDT [facility] Scanned Images 01/09/2024 15:40 EDT [facility] Pap Test CERVIX UTERI STRUCTURE / Unknown 01/01/2024 14:00 EDT 01/03/2024 12:20 EDT us Shalonda Nicholas NETWORK FIREWALL ENGINEER PATHOLOGY ORDERABLES Zora barrington Result [facility] [address] [place] [address] documented in this encounter Visit Diagnoses Diagnosis Encounter for gynecological examination (general) (routine) without abnormal findings Encounter for screening for malignant neoplasm of cervix Screening for malignant neoplasm of the cervix Encounter for general adult medical examination without abnormal findings Unspecified general medical examination documented in this encounter Care Teams Bereavement Coordinator Relationship Specialty Start Date End Date Devonte Young MD [address] [place] [address] PCP - General 01/11/17 documented as of this encounter
--- OUTSIDE RECORDS SUMMARY | 2024-07-01 18:42 | XMS_ITS | Encounter Summary ---
Author Organization [facility] [place] [address] Care Team Providers Care Thermometer Maker Name Role Phone Shalonda Nicholas DENNISE Primary Care Provider [phone] Reason for Referral * Consultation (Routine) - Complete - Unable to Contact Patient Specialty Diagnoses / Procedures Referred By Robin salinas Referred To Contact Neurology Diagnoses Neuropathic pain, leg, left Analia Godwin APRN [facility] [place] [address] Jasson Jameson MD [facility] [place] [place] [address] Referral ID Status Reason Start Date Expiration Date Visits Requested Visits Authorized [id number] Complete - Unable to Contact Patient Consult, Test & Treat 01/28/2015 01/28/2016 1 1 Encounter Details Date Type Department Care Team (Late st Contact Info) Description 01/28/2015 Orders [place] [address] Analia Godwin [facility] [place] [address] Neuropathic pain, leg, left Social History Tobacco [...] results and plan. Analia Godwin, DNP, ANP, MEDICAL AFFAIRS LEADER documented in this encounter Plan of Treatment Scheduled Referrals Name Type Priority Associated Diagnoses Orde r Schedule Referral to Neurology Outpatient Referral Routine Neuropathic pain, leg, left Ordered: 01/28/2015 documented as of this encounter Visit Diagnoses Diagnosis Neuropathic pain, leg, left documented in this encounter Care Teams Thermometer Maker Relationship Specialty Start Date End Date Shalonda Nicholas APRN [address] [place] [address] PCP - General 11/27/14 documented as of this encounter
--- OUTSIDE RECORDS SUMMARY | 2024-07-01 18:42 | XMS_ITS | Clinical Summary ---
Author Organization [facility] Address [address] [place] [address] Care Team Providers Care Creative Strategist Name Role Phone Devonte Young MD Primary Care Provider [phone] Social History Tobacco Use Types Packs/Day Years [...] Last Done Comments Hepatitis C Screen 1960 Fall Risk Screening 2023 COVID-19 Vaccine (2023-25 season) 2024 RSV Immunization ( o r 60+ Years) (1 - 1-dose 75+ series) 2033 Insurance MEDICAID O [place] Care Teams Creative Strategist Relationship Specialty Start Date End Date Devonte Young MD [address] [place] [address] PCP - General 01/11/17
--- OUTSIDE RECORDS SUMMARY | 2024-07-01 18:42 | XMS_ITS | Referral Summary ---
Author Organization [facility] Address [address] [place] [address] Care Team Providers Care Ear Flap Binder Name Role Phone Devonte Young MD Primary Care Provider [phone] Social History Tobacco Use Types Packs/Day Years [...] Plan of Treatment Not on file Insurance [place] Care Teams Ear Flap Binder Relationship Specialty Start Date End Date Devonte Young MD [address] [place] [address] PCP - General 01/11/17
--- OUTSIDE RECORDS SUMMARY | 2024-07-01 18:42 | XMS_ITS | Encounter Summary ---
Author Organization [facility] Address [address] [place] [id number] Care Team Providers Care Baling Press Operator Name Role Phone Unavailable Primary Care Provider Unavailabl e Encounter Details Date Type Department Care Team (Late st Contact Info) Description 11/11/2010 Results Only [facility] ([facility] [place]) [address] [place] [address] Arturo Sheppard ARNP [address] [place] [address] Social History Tobacco Use Types Packs/Day Years [...] reading/interpreti ng unformatted reports. ? Name: ? , TANO ? Accession #: ? [id number] ? : ? 1960 (Age: 50) ??F [...] Report ? [facility] 11/11/2010 11/15/2010 us Arturo CHAU PATHOLOGY ORDERABLES Zora ferris Result [facility] [address] [place] [address] documented in this encounter Visit Diagnoses Not on filedocumented in this encounter
[2024-07-01 22:31] LABS: Bilirubin Negative (Negative); Blood Negative (Negative); Clarity Clear (Clear); Glucose 100 mg/dL (Negative); Ketones Negative (Negative); Leukocyte Esterase Negative (Negative); Nitrite Negative (Negative); Specific Gravity 1.025 (1.005-1.025); Urobilinogen 0.2 mg/dL (Up to 0.2)
[2024-07-01 22:51] LABS: COMMENT (LAB VIEW ONLY) 118.11 mg/dL; Microalb ug/mg Crea 7.3 ug/mg Cr
== END 2024-07-01 18:40 | disposition home or self-care (01) ==
LOC: NCHCN 18:39
PROVIDERS: PCP Nurse Practitioner Family; Visit Provider Nurse Practitioner Family
DX: I10 Essential (primary) hypertension (principal)
CPT/HCPCS: 81003; 82043; 82570

== ENCOUNTER 2024-11-29 00:01 | Outpatient (CLI) | payer MEDICARE, MEDICAID, SELFPAY ==
--- NOTE | 2024-11-29 | DI.MAMMO_ITS ---
Exam(s) MAMMO SCREENING EXAM: MAMMO SCREENING CLINICAL HISTORY: Screening, family h/o breast CA, Z80.3. TECHNIQUE: Bilateral full field digital CC and MLO mammographic images were obtained with 3D tomosyn thesis and utilizing computer aided detection (CAD). COMPARISON: Prior mammograms were reviewed. FINDINGS: There has been no significant change in the appearance and distribution of the fibroglandular tissue. There are no CAD designations. There are no new spiculated masses nor malignant appearing microcalcification groups. There is no significant architectural distortion nor skin thickening-retraction. IMPRESSION: No radiographic evidence of malignancy. BI-RADS Category 1 - Negative Breast Density - Category A - The breast are almost entirely fatty. Breast density Category C or D implies that the patient has dense breast tissue. Dense breast tissue can make it harder to find cancer on a mammogram. Dense breast tissue is also associated with an incr eased risk of breast cancer. This information about the result of the mammogram report was provided to the patient to raise their awareness. Use this report when you speak with the patient about their risks for breast cancer, which includes their family history. At that time, you may recommend additional screening tests (Ultrasoun d or MRI) as these tests may add significant information. A negative radiographic report should not delay biopsy if a dominant or clinically suspicious mass is present. Up to ten percent of cancers are not identified on mammography. A negative report may reinforce clinical impression. Adenosis and dense breasts may obscure an underlying neoplasm. False positive reports average 6 to 10%. Patient will receive a letter notifying them of these results.
== END 2024-11-29 00:21 ==
LOC: DI 00:01
PROVIDERS: PCP Nurse Practitioner Family; Visit Provider Nurse Practitioner Family
DX: Z12.31 Encounter for screening mammogram for malignant neoplasm of breast (principal); Z80.3 Family history of malignant neoplasm of breast; R92.313 Mammographic fatty tissue density, bilateral breasts
CPT/HCPCS: 77063; 77067

== ENCOUNTER 2024-12-23 12:21 | Outpatient (REF) | payer MEDICARE, MEDICAID, SELFPAY ==
[2024-12-23 14:47] LABS: Abs Immature Grans 0.01 10^3/uL (0.0-0.06); Absolute Basophil Count 0.04 10^3/uL (0.0-0.2); Absolute Eosinophil Count 0.19 10^3/uL (0.0-0.7); Absolute Lymphocyte Count 1.54 10^3/uL (1.2-3.4); Absolute Monocyte Count 0.42 10^3/uL (0.1-0.8); Absolute Neutrophil Count 3.63 10^3/uL (1.2-6.7); Basophils % 0.7 %; Eosinophils % 3.3 %; HCT 43.7 % (36.0-46.0); HGB 13.4 g/dL (11.2-15.7); Immature Grans % 0.2 %; Lymphocytes % 26.4 %; MCH 27.5 pg (27.0-33.0); MCHC 30.7 % (32.0-36.0); MCV 90 fL (80-95); Monocytes % 7.2 %; Neutrophils % 62.2 %; Platelet Count 204 10^3/uL (130-400); RBC 4.88 10^6/uL (3.93-5.22); RDW 13.6 % (11.7-14.6); RDW-SD 44.5 fL; WBC 5.83 10^3/uL (4.4-10.8)
[2024-12-23 15:16] LABS: Hemoglobin A1C 6.7 % (<5.7)
[2024-12-23 15:39] LABS: ALT 34 U/L (14-59); AST 25 U/L (15-37); Albumin 3.7 g/dL (3.4-5.0); Alkaline Phosphatase 101 U/L (46-116); BUN 17 mg/dL (7-18); Bilirubin, Total 0.4 mg/dL (0.2-1.0); CREATININE 0.9 mg/dL (0.55-1.02); Calculated LDL 167 mg/dL (<100); Chloride 104 mmol/L (98-107); Cholesterol 261 mg/dL (<200); Estimated GFR 70.51 (mL/min/1.73m2); Glucose 136 mg/dL (74-106); HDL Cholesterol 62 mg/dL (>or=50); Potassium 4.5 mmol/L (3.5-5.1); Sodium 140 mmol/L (136-145); Total Protein 7.2 g/dL (6.4-8.2); Triglyceride 160 mg/dL (<150); Vitamin B12 394 pg/mL (193-986)
== END 2024-12-23 12:22 | disposition home or self-care (01) ==
LOC: NCHCN 12:21
PROVIDERS: PCP Nurse Practitioner Family; Visit Provider Nurse Practitioner Family
DX: E11.9 Type 2 diabetes mellitus without complications (principal); K76.0 Fatty (change of) liver, not elsewhere classified; I10 Essential (primary) hypertension
CPT/HCPCS: 80053; 80061; 82607; 83036; 83735; 85025

== ENCOUNTER 2024-12-31 15:10 | Outpatient (REF) | payer MEDICARE, MEDICAID, SELFPAY ==
[2024-12-31 22:09] LABS: Bilirubin Negative (Negative); Blood Negative (Negative); Clarity Clear (Clear); Glucose 250 mg/dL (Negative); Ketones Negative (Negative); Leukocyte Esterase Negative (Negative); Nitrite Negative (Negative); Specific Gravity 1.025 (1.005-1.025); Urobilinogen 0.2 mg/dL (Up to 0.2); pH 5.5 (5-8)
[2024-12-31 22:23] LABS: COMMENT (LAB VIEW ONLY) 135.14 mg/dL; Microalb ug/mg Crea 17.1 ug/mg Cr
== END 2024-12-31 15:11 | disposition home or self-care (01) ==
LOC: NCHCN 15:10
PROVIDERS: PCP Nurse Practitioner Family; Visit Provider Nurse Practitioner Family
DX: I10 Essential (primary) hypertension (principal)
CPT/HCPCS: 81003; 82043; 82570

== ENCOUNTER 2025-04-02 16:19 | Outpatient (REF) | payer MEDICARE, MEDICAID, SELFPAY ==
[2025-04-02 14:59] LABS: Hemoglobin A1C 7.3 % (<5.7)
[2025-04-02 15:13] LABS: ALT 30 U/L (14-59); AST 21 U/L (15-37); Albumin 3.8 g/dL (3.4-5.0); Alkaline Phosphatase 103 U/L (46-116); Anion Gap 5.4 mmol/L (3-11); BUN 15 mg/dL (7-18); Bilirubin, Total 0.5 mg/dL (0.2-1.0); CO2 33.6 mmol/L (21.0-32.0); Calcium 9.2 mg/dL (8.5-10.1); Calculated LDL 181 mg/dL (<100); Chloride 102 mmol/L (98-107); Cholesterol 285 mg/dL (<200); Estimated GFR 81.21 (mL/min/1.73m2); Glucose 125 mg/dL (74-106); HDL Cholesterol 72 mg/dL (>or=50); Potassium 4.3 mmol/L (3.5-5.1); Sodium 141 mmol/L (136-145); Total Protein 7.4 g/dL (6.4-8.2); Triglyceride 163 mg/dL (<150)
== END 2025-04-02 16:20 | disposition home or self-care (01) ==
LOC: NCHCN 16:19
PROVIDERS: PCP Nurse Practitioner Family; Visit Provider Nurse Practitioner Family
DX: E11.9 Type 2 diabetes mellitus without complications (principal); E78.5 Hyperlipidemia, unspecified
CPT/HCPCS: 80053; 80061; 83036

== ENCOUNTER 2025-05-06 00:17 | Outpatient (CLI) | payer MEDICARE, MEDICAID, SELFPAY ==
--- NOTE | 2025-05-06 08:30 | DI.US_ITS ---
Exam(s) US ABDOMEN LIMITED EXAM: US ABDOMEN LIMITED CLINICAL HISTORY: STEATOTIC LIVER DISEASE, FATTY LIVER K76.0 TECHNIQUE: Ultrasound abdomen performed using standard protocol. COMPARISON: US US ABDOMEN from 10/12/2021 US US ABDOMEN LIMITED from 04/22/2022 FINDINGS: PANCREAS: Normal where visualized. LIVER: There is diffuse increased echogenicity of the liver suggesting fatty infiltration. Hepatopetal flow in the Portal Vein. The liver measures in 17.5 cm length. No evidence of a hepatic mass. GALLBLADDER:Status post cholecystectomy. BILIARY SYSTEM: Common bile duct measures < 7 mm. No intrahepatic biliary ductal dilation. RIGHT KIDNEY: Kidney is normal in size. No evidence of renal calculi. No evidence of hydronephrosis. No renal mass or cyst identified. ASCITES: None seen. IMPRESSION: Hepatic steatosis. DATA REPOSITORY:
== END 2025-05-06 00:37 ==
LOC: DI 00:17
PROVIDERS: PCP Nurse Practitioner Family; Visit Provider Nurse Practitioner Family
DX: K76.0 Fatty (change of) liver, not elsewhere classified (principal)
CPT/HCPCS: 76705